=== PATIENT | female | born 1985 | race African-American/Black ===

== ENCOUNTER 2024-11-17 19:52 | Inpatient (IN) | payer OTHER, SELFPAY ==
[2024-11-17 20:01] VITALS: BP 133/81; BP 148/88; PULSE 104; PULSE 97; RESP 20; TEMP 37.3; O2SAT 97; BMI 28.2
[2024-11-17 20:26] LABS: Hematocrit 39.5 % (37.0-47.0); Hemoglobin 13.9 g/dl (12.0-16.0); Mean Corpuscular HGB Conc 35.2 g/dl (31.0-35.0); Mean Corpuscular Hemoglobin 34.1 pg (27.0-33.0); Mean Corpuscular Volume 96.8 fL (80.0-98.0); Mean Platelet Volume 9.9 fL (9.4-12.3); Platelet Count 234 X10*3/uL (160-400); Red Blood Count 4.08 X10*6/uL (4.20-5.50); Red Cell Distribution Width 13.2 % (11.0-16.0); White Blood Count 3.9 X10*3/uL (4.8-10.8)
[2024-11-17 20:40] LABS: Alanine Aminotransferase 10 U/L (0-31); Albumin Level 4.1 g/dL (3.5-5.0); Alkaline Phosphatase 64 U/L (39-117); Anion Gap 15 (12-20); Aspartate Amino Transferase 23 U/L (5-31); Bilirubin Total 0.4 mg/dL (0.0-1.0); Blood Urea Nitrogen 6 mg/dL (9-16); Calcium 9.4 mg/dL (8.4-10.2); Carbon Dioxide 23 mmol/L (22-29); Chloride 106 mmol/L (96-108); Creatinine Clr Calc Pharmacy 104.2; Estimated Glomerular Filt Rate > 60; Ethanol 99 mg/dL; Glucose Random 86 mg/dL (60-115); Potassium 3.5 mmol/L (3.3-5.1); Sodium 140 mmol/L (135-145); Total Protein 7.6 g/dL (6.5-8.0)
[2024-11-17 20:55] LABS: Amphetamine Screen Urine Not Detected (Not Detect); Barbiturates, Urine Not Detected (Not Detect); Benzodiazepines Screen Urine Not Detected (Not Detect); Buprenorphine Scr Not Detected (Not Detect); Cannabinoid Screen Urine POSITIVE (Not Detect); Cocaine Screen Urine Not Detected (Not Detect); Fentanyl, urine Not Detected (Not Detect); Methadone Screen, Urine Not Detected (Not Detect); Opiate Screen Urine Not Detected (Not Detect); Oxycodone Screen Urine Not Detected (Not Detect); Phencyclidine Screen Urine Not Detected (Not Detect)
--- NOTE | 2024-11-17 21:12 | PC.NURSE ---
Patient became verbally aggressive threatening staff and yelling at security and calling the nurse a bitch. Pt was able to verbalize frustration. Spoke with care to to assess patient. Care team in speaking with patient at this time.
--- NOTE | 2024-11-17 22:27 | ED.PSYCH ---
HPI - Psych General Chief Complaint: Psychiatric Symptoms Stated Complaint: SI Time Seen by Provider: 11/17/24 21:44 Source: patient and EMS Mode of arrival: EMS Limitations: no limitations History of Present Illness ED Provider: Dr. Ivelisse Collado HPI Narrative: Patient comes to the emergency room complaining of having racing thoughts, initially when EMS picked up the patient, she mentioned that she had some suicidal ideation thoughts. According to the patient, patient states that she feels extremely overwhelmed because she does not have much to the. Patient states that she has used to have many activities going on at the same time, then, for unclear reason she is no longer as active as she used to in her mind keeps racing, but not accomplishing anything. Patient states that she recently had an argument with her daughter, seems that the patient was making SI statements, patient was brought to the emergency room via ambulance. Patient states that she does not have a plan. Patient just feels extremely overwhelmed Related Data Allergies Allergy/AdvReac Type Severity Reaction Status Date / Time latex Allergy Unknown Verified 11/17/24 20:04 Review of Systems Review of Systems: Constitutional : No Weight loss, No Fever, No Chills, No Night Sweats, No Fatigue, No Malaise ENT/Mouth : No Hearing loss, No Ear Pain, No Nasal Congestion, No Sinus Pain, No Hoarseness, No sore throat, No Rhinorrhea, No Swallowing Difficulty Eyes: No Eye Pain, No Swelling, No Redness, No Foreign Body, No Discharge, No Vision Changes Cardiovascular : No Chest Pain, No SOB, No Dyspnea on Exertion, No Orthopnea, No Edema, No Palpitations Respiratory : No Cough, No Sputum, No Wheezing, No Smoke Exposure, No Dyspnea Gastrointestinal : No Nausea, No Vomiting, No Diarrhea, No Constipation, No abdominal Pain, No Hematochezia, No Melena Genitourinary : no irregular bleeding, No Dysuria, No Urinary Frequency, No Hematuria, No Urinary Incontinence, No Urgency, No Flank Pain, No Urinary Flow Changes, No Hesitancy Musculoskeletal : No joint pain, No Myalgias, No Joint Swelling Skin : No Skin Lesions, No rash Neuro : No Weakness, No Numbness, No Paresthesias, No Loss of Consciousness, No Dizziness, No Headache Psych : Complaining of anxiety, no depression, no SI or HI, complaining of racing thoughts Heme/Lymph: No Bruising, No Bleeding,No Lymphadenopathy Endocrine : No Polyuria, No Polydipsia, No Temperature Intolerance [facility] Social History Social History Advance Directives: No Advance Directives Information Provided: No Do you have a plan to hurt others: No Plan Physical Exam Vital Signs: Vital Signs: Last Vital Signs Temp 99.2 F 11/17/24 20:01 Pulse 97 11/17/24 20:01 Resp 20 11/17/24 20:01 BP 133/81 11/17/24 20:01 Pulse Ox 97 11/17/24 20:01 O2 Del Method Room Air 11/17/24 20:01 BMI result Body Mass Index 28.2 Const: Other: Appearance: Alert. Oriented X3. No acute distress. Eyes: Pupils equal, round and reactive to light. ENT: Pharynx normal. Neck: Normal inspection. Neck supple. No lymph nodes noted. No crepitus CVS: Normal heart rate and rhythm. Pulses normal. Normal S1 and S2 Respiratory: No respiratory distress. Breath sounds normal. No Wheezing. No rales Abdomen: Soft and nontender. No rigidity. No distention. Skin: Skin warm and dry. Normal skin color. Normal skin turgor. Extremities: No lower extremity edema. No Lacerations. No Rash Neuro: Oriented X 3. No motor deficit. No sensory deficit. Moving all extremities. No slurred speech. CN 2 through 12 grossly intact Psych: calm, cooperative, a bit anxious, seems overwhelmed Medical Decision Making Medical Decision Making MDM Narrative: Interpretation of labs: Patient's hematology and chemistry unremarkable, toxicology positive for THC, alcohol level 99. At this time, patient denies being SI or HI. Care team consult pending Physician observation started at 22:32 Differential Diagnosis Differential Diagnoses: The differential diagnosis associated with the presentation includes (Anxiety, depression) Lab Data 11/17/24 20:18 11/17/24 20:18 Labs: Lab Results 11/17/24 11/17/24 Range/Units 20:18 20:40 WBC 3.9 L (4.8-10.8) X10*3/uL RBC 4.08 L (4.20-5.50) X10*6/uL Hgb 13.9 (12.0-16.0) g/dl Hct 39.5 (37.0-47.0) % MCV 96.8 (80.0-98.0) fL MCH 34.1 H (27.0-33.0) pg MCHC 35.2 H (31.0-35.0) g/dl RDW 13.2 (11.0-16.0) % Plt Count 234 (160-400) X10*3/uL MPV 9.9 (9.4-12.3) fL Absolute Nucleated RBC 0.000 (0.0-0.012) X10*3/uL Nucleated RBC % (auto) 0.0 (0.0-0.2) /100WBC Sodium 140 (135-145) mmol/L Potassium 3.5 (3.3-5.1) mmol/L Chloride 106 (96-108) mmol/L Carbon Dioxide 23 (22-29) mmol/L Anion Gap 15 (12-20) BUN 6 L (9-16) mg/dL Creatinine 0.77 (0.5-1.4) mg/dL Estim Creat Clear Calc 104.2 Estimated GFR > 60 Random Glucose 86 (60-115) mg/dL Calcium 9.4 (8.4-10.2) mg/dL Total Bilirubin 0.4 (0.0-1.0) mg/dL AST 23 (5-31) U/L ALT 10 (0-31) U/L Alkaline Phosphatase 64 (39-117) U/L Total Protein 7.6 (6.5-8.0) g/dL Albumin 4.1 (3.5-5.0) g/dL Urine Opiates Screen Not Detected (Not Detect) Ur Buprenorphine Scrn Not Detected (Not Detect) ng/mL Ur Oxycodone Screen Not Detected (Not Detect) ng/mL Urine Methadone Screen Not Detected (Not Detect) ng/mL Urine Fentanyl Screen Not Detected (Not Detect) Ur Barbiturates Screen Not Detected (Not Detect) Ur Phencyclidine Scrn Not Detected (Not Detect) Ur Amphetamines Screen Not Detected (Not Detect) U Benzodiazepines Scrn Not Detected (Not Detect) Urine Cocaine Screen Not Detected (Not Detect) U Marijuana (THC) Screen POSITIVE H (Not Detect) Ethyl Alcohol 99 mg/dL Discharge Plan Discharge Clinical Impression: Acute anxiety, Depression Patient Disposition: Still a Patient Interventions: [place]-Suicide Risk Severity Scale Last Done: 11/17/24 20:05 Print Language: [place]
[2024-11-17 22:55] LABS: HCG Quantitative < 2 mIU/mL
--- NOTE | 2024-11-18 06:06 | PC.NURSE ---
Assumed care of pt at 2300. Patient has been sleeping since assuming care and is still sleeping at the time of this note. Respirations have remained even and unlabored throughout the night. No signs of distress or discomfort noted. 15 minute checks performed as per protocol and remain in place. Disposition remains unknown at this time, awaiting care team follow up.
[2024-11-18 06:15] VITALS: BP 110/54; PULSE 64; RESP 16; O2SAT 97
--- NOTE | 2024-11-18 07:15 | PC.NURSE ---
Assumed care of patient at 0700. Patient currently resting. Continue with plan of care for reevaluation by care team today.
[2024-11-18 09:19] VITALS: BP 133/82; PULSE 72; RESP 16; TEMP 36.9; O2SAT 98
--- NOTE | 2024-11-18 11:43 | MHC.CARE ---
Pt meets [facility] and is on a Section 12a as an inpatient psychiatric bed search. Provider in agreement.
--- NOTE | 2024-11-18 14:11 | PC.NURSE ---
Patient became agitated after speaking with daughter on phone, able to verbally deescalate. Patient verbalizing frustration with being here, feelings validated. Patient currently calm sitting in room listening to music.
--- NOTE | 2024-11-18 14:26 | MHC.CARE ---
Initial Boarding Form Your submission was successful! ?Your Confirmation Submission ID is: [id number]
[2024-11-18 15:01] LABS: Appearance Urine Cloudy; Color Urine Dark Yellow; Glucose Urine UA Negative (Negative); Leukocyte Esterase Urine Negative (Negative); Nitrite Urine Negative (Negative); PH 5.5 (5.0-9.0); Specific Gravity - Urine 1.025 (1.005-1.025); Urine Blood Negative (Negative); Urine Ketones Trace mg/dL (Negative); Urine Protein Trace mg/dL (Neg-Trace)
[2024-11-18 16:40] VITALS: BP 136/93; PULSE 87; TEMP 36.8; O2SAT 99
[2024-11-18 16:51] VITALS: BMI 23.8
--- NOTE | 2024-11-18 18:14 | PC.ADMIT ---
Addendum entered by Jaclyn Munoz RN 11/18/24 18:58: Admitting diagnoses include SI, depression, alcohol use disorder. Addendum entered by Jaclyn Munoz RN 11/18/24 18:51: Ms. Ahuja is on no scheduled meds. CIWA at 16:40 was 1. No meds administered at that time. Original Note: Ms. Celina Ahuja is a 39 year old single Black female who was admitted from the pod to room [facility]- at 4:30pm for suicidal ideation. She arrived on a 12B and did sign a Conditional Voluntary. Skin/ safety check completed and was unremarkable except for what appears to be a plantars wart on the bottom of her right foot. The patient arrived at the ED after expressing suicidal ideation to her eldest daughter. Precipitants include but are not limited to the of her mother in January 2024 from complications of diabetes while living with and taking care of Celina's younger alcoholic sister and her sister's 7 children, the loss of housing in January 2024 for unrelated reasons, and the loss of employment. She reports smoking marijuana daily and drinking approximately a pint of hard liquor 2-4 times per month. Last drink and cannabis use was within days of this admission. Ms. Ahuja denied suicidality after arriving at the pod. Placed on CIWA q 4 hours. Admitting vitals were: 136/93- P87- T98.2- SP02 99%. Allergic to latex. Medically, she reports that she has asthma which is managed witha rescue inhaler (albuteral). Ms. Ahuja reports that she has lost up to 80lbs since her mother's (due to lack of appetite). She endorses hopelessness but is currently denying SI/ HI/ auditory or visual hallucinations. She has never been a smoker and is declining the flu vaccine, for now.
[2024-11-18 19:54] VITALS: BP 145/85; PULSE 85; TEMP 36.8; O2SAT 99
[2024-11-19 08:00] VITALS: BP 122/78; PULSE 92; TEMP 36.4; O2SAT 98
--- NOTE | 2024-11-19 08:21 | PHA.MEDREC ---
Addendum entered by Kostas Matos 11/19/24 08:59: reviewed Original Note: Pharmacy Consult ? Medication Reconciliation Pharmacy reviewed med rec done by nursing. No Known Home Meds was confirmed for med rec and looking into claims the patient has not filled any medications since February of this year and looking through notes, a nurse confirmed with the patient that Ms. Ahuja is on no scheduled meds.
[2024-11-19] MEDS: Thiamine HCL 100 MG TABLET PO (09:14)
[2024-11-19] MEDS: Folic Acid 1 MG TABLET PO (09:14)
[2024-11-19] MEDS: Multivitamin TABLET 1 TAB PO (09:14)
[2024-11-19 10:34] LABS: Estimated Average Glucose 100 mg/dL; Hemoglobin A1C 126.2265 umol/L; Hemoglobin A1c % 5.1 % (<6.0); Total Hemoglobin (HGBA1C) 3939.4983 umol/L
[2024-11-19 10:36] LABS: Cholesterol 263 mg/dL (<200); HDL Cholesterol 51 mg/dL (>40); LDL Cholesterol Calculated 183 mg/dL (<100); Magnesium 1.8 mg/dL (1.6-2.6); Triglycerides 149 mg/dL (<150)
[2024-11-19 10:51] LABS: Free T4 (Free Thyroxine) 1.11 ng/dL (0.71-1.85); Thyroid Stimulating Hormone 0.85 uIU/mL (0.32-4.0)
[2024-11-19 11:05] LABS: Folate 14.4 ng/mL (> or = 4.0); Vitamin B12 439 pg/mL (200-900)
--- NOTE | 2024-11-19 11:14 | HO.PSYADMNOT ---
HPI Date of Service: 11/19/24 Chief Complaint: SI, alcohol use disorder, depression Sources of Information: patient interviewed, chart reviewed and crisis/core team assessment reviewed HPI Subjective Notes: [place]ega Warning and Conditional Voluntary Narrative: Ms. Ahuja is a 39 year-old woman who was brought via EMS after daughter called 911 reporting pt reported SI with plan to jump off a bridge. Pt has multiple stressors including the fact that her mother in 01/2024, has been using alcohol daily since last 09/2023, and recently lost housing and her job. BAL 99. Utox positive for cannabis. On the unit, pt reports she feels unsupported by most of her family members who in the past she was helping. She reports first she lost her mother back in January of this year and prior to that last September in 2022 she started using alcohol almost daily about 1-2 pints. She reports she also lost housing in January of 2024 due to lack of payment. She reports most recently she was staying at her daughter's house and they had an argument about something she cooked for her and her as gesture of appreciation for letting her stay with them. She reports she became very upset and did at the moment make statements about wanting to be and having a plan to jump off the bridge. She now reports she did not have intention to end her life. She reports her sleep is poor, especially if she does not use cannabis which she reports using daily. She reports many misfortunes in her life are product of other people's wrongdoings to her. She endorses feeling lonely, overwhelmed at prospect of not having housing and recently (2 weeks ago) losing her job. She denies hx of VH/AH. No delusions. No prior psychiatric tx inpt or outpatient. She reports she used to have more energy but now feels defeated and trapped. Past Psychiatric History: Inpatient: none prior OP: none Past medication trials: none Hx of suicide attempts: none Medical Evaluation Reviewed: Yes cbc with leukopenia. CMP with no electrolyte abnormalities; BUN 6, Cr 0.77, Creatinine Clearance 104.2. A1c 5.1 TSH wnl. Lipid panel- cholesterol 263, LDL 183, HDL 51 [facility] Family History: mother- depression Social History: Pt born in [place]. She has 4 siblings. Completed GED. She has 3 children. Not . Substance History: Pt reports she started using alcohol heavily since Sep. She reports using 2 pints a day. Cannabis: everyday, multiple times a day Opioids: Cocaine: Trauma History: emotional as child Diagnostics Vital Signs (24Hr): Vital Signs - 24 hr 11/18/24 16:40 11/18/24 19:54 Temperature 98.2 F 98.2 F Pulse Rate 87 85 Blood Pressure 136/93 H 145/85 H Pulse Oximetry 99 99 Oxygen Delivery Method Room Air Room Air BMI result Body Mass Index 23.8 Labs 11/17/24 20:18 11/17/24 20:18 Labs: Laboratory Results - last 48 hr 11/17/24 11/17/24 11/18/24 20:18 20:40 20:40 WBC 3.9 L RBC 4.08 L Hgb 13.9 Hct 39.5 MCV 96.8 MCH 34.1 H MCHC 35.2 H RDW 13.2 Plt Count 234 MPV 9.9 Absolute Nucleated RBC 0.000 Nucleated RBC % (auto) 0.0 Sodium 140 Potassium 3.5 Chloride 106 Carbon Dioxide 23 Anion Gap 15 BUN 6 L Creatinine 0.77 Estim Creat Clear Calc 104.2 Estimated GFR > 60 Random Glucose 86 Estimat Average Glucose Hemoglobin A1c % Calcium 9.4 Magnesium Total Bilirubin 0.4 AST 23 ALT 10 Alkaline Phosphatase 64 Total Protein 7.6 Albumin 4.1 Triglycerides Cholesterol LDL Cholesterol, Calc HDL Cholesterol Vitamin B12 Folate TSH Free T4 Beta HCG, Quant < 2 Urine Color Dark Yellow Urine Appearance Cloudy Urine pH 5.5 Ur Specific [place] 1.025 Urine Protein Trace Urine Glucose (UA) Negative Urine Ketones Trace Urine Blood Negative Urine Nitrite Negative Ur Leukocyte Esterase Negative Urine Opiates Screen Not Detected Ur Buprenorphine Scrn Not Detected Ur Oxycodone Screen Not Detected Urine Methadone Screen Not Detected Urine Fentanyl Screen Not Detected Ur Barbiturates Screen Not Detected Ur Phencyclidine Scrn Not Detected Ur Amphetamines Screen Not Detected U Benzodiazepines Scrn Not Detected Urine Cocaine Screen Not Detected U Marijuana (THC) Screen POSITIVE H Ethyl Alcohol 99 11/19/24 11/19/24 09:57 09:58 WBC RBC Hgb Hct MCV MCH MCHC RDW Plt Count MPV Absolute Nucleated RBC Nucleated RBC % (auto) Sodium Potassium Chloride Carbon Dioxide Anion Gap BUN Creatinine Estim Creat Clear Calc Estimated GFR Random Glucose Estimat Average Glucose 100 Hemoglobin A1c % 5.1 Calcium Magnesium 1.8 Total Bilirubin AST ALT Alkaline Phosphatase Total Protein Albumin Triglycerides 149 Cholesterol 263 H LDL Cholesterol, Calc 183 H HDL Cholesterol 51 Vitamin B12 439 Folate 14.4 TSH 0.85 Free T4 1.11 Beta HCG, Quant Urine Color Urine Appearance Urine pH Ur Specific [place] Urine Protein Urine Glucose (UA) Urine Ketones Urine Blood Urine Nitrite Ur Leukocyte Esterase Urine Opiates Screen Ur Buprenorphine Scrn Ur Oxycodone Screen Urine Methadone Screen Urine Fentanyl Screen Ur Barbiturates Screen Ur Phencyclidine Scrn Ur Amphetamines Screen U Benzodiazepines Scrn Urine Cocaine Screen U Marijuana (THC) Screen Ethyl Alcohol Meds/Allergies Meds Home Medications ?Medication ?Instructions ?Recorded ?Confirmed ?Type No Known Home Meds 11/18/24 11/18/24 History Allergies Allergies Allergy/AdvReac Type Severity Reaction Status Date / Time latex Allergy Unknown Verified 11/17/24 20:04 Mental Status Exam Mental Status Exam Narrative: Appearance:wearing hospital gown, fair hygiene, in NAD Behavior:cooperative Psychomotor: no tremors, no agitation or retardation noted Speech:clear, normal rate/rhythm/volume, spontaneous TP:linear TC:worried about housing Mood: depressed Affect:congruent, tearful SI:denies HI: denies VH/AH:none Delusions:none Insight/judgment:poor x 2. Memory/cog: alert, oriented x 3. grossly intact to conversational testing. Assessment & Plan Assessment & Plan (1) MDD (major depressive disorder), recurrent episode, moderate: Status: Acute Code(s): F33.1 - Major depressive disorder, recurrent, moderate (2) Alcohol use disorder, moderate, dependence: Status: Acute Code(s): F10.20 - Alcohol dependence, uncomplicated Plan Ms. Ahuja is a 39 year-old woman who was brought via EMS after daughter call 911 due to pt reporting SI with plan to jump off the bridge. In the ED, she denied SI, but reported feeling overwhelmed, depressed and using alcohol almost daily for over a year in context of of her mother back in 01/2024, losing housing for first time in her life back in 01/2024, and recently losing her job. BAL was 99. She has not scored on CIWA but will continue for now given amount of alcohol use for such prolonged time. We discussed risks, benefits and alternative treatment options. She does appear to have low frustration tolerance and easily becomes irritable and explosive, which has been witnessed here in the hospital and she also reports this happens frequently. No clear s/s of hypomania or all at this point. I will treat as unipolar depression but could have bipolar disorder. Will start remeron 15mg po qhs for depression and sleep. clonidine 0.1mg po daily for low frustration tolerance. She also agreed to start naltrexon for alcohol cravings. She also agreed to referral to addiction medicine. PLAN 1. admit to M5, CV, 15 minutes checks for safety 2. will continue ciwa for now, although she has not scored, is less than 48hrs since last drink and seems to have been using large amounts of it for over a year. 3. remeron 15mg po qhs for depression, plan to increase to 30mg po qhs. clonidine 0.1mg po daily- monitor BP. Naltrexon for alcohol cravings 50mg po daily starting tomorrow. 4. addiction consult 5. Lipid panel with elevated LDL, Total Cholesteril- advised to follow up with PCP. 6. aftercare planning. Patient educated on: diagnosis, medication risk/benefits and substance abuse Reason for continued inpatient stay Substantial Risk for: harm to self and inability to function Statement Statement: I have reviewed the history and physical and performed a pertinent examination on my patient. No changes have occurred unless specified. If the History and Physical was not performed prior to admission, the Hospitalist's service will be consulted for completing the admission physical. Time Spent With Patient Time: Total time managing care of this patient today ____ minutes.
[2024-11-19 12:00] VITALS: BP 120/80; PULSE 88
[2024-11-19 15:09] VITALS: BP 127/78
[2024-11-19] MEDS: cloNIDine HCL 0.1 MG TABLET PO (15:09)
[2024-11-19 20:00] VITALS: BP 123/70; PULSE 105; RESP 18; TEMP 36.4; O2SAT 97
[2024-11-19] MEDS: Mirtazapine 15 MG TABLET PO (22:29)
[2024-11-20] MEDS: Naltrexone HCl 50 MG TABLET PO (08:46)
[2024-11-20] MEDS: Thiamine HCL 100 MG TABLET PO (08:46)
[2024-11-20] MEDS: Folic Acid 1 MG TABLET PO (08:46)
[2024-11-20] MEDS: Multivitamin TABLET 1 TAB PO (08:46)
[2024-11-20 09:04] VITALS: BP 116/78; PULSE 67; RESP 20; TEMP 36.4; O2SAT 98
[2024-11-20] MEDS: cloNIDine HCL 0.1 MG TABLET PO (09:10)
--- NOTE | 2024-11-20 09:50 | P.PNPSI_ITS ---
Subjective Subjective Date of Service: 11/20/24 Reason For Visit: SI, alcohol use disorder, depression Subjective Notes: 3 Day Healthcare Proxy: No Guardianship: No Medical Problems Affecting Mental Status: No Interim History: 39 yo irritable and annoyed with how people/staff are interacting with her - finds checks rude and disruptive to her sleep -=but also how people/staff address her and other escalated patient not being calmed down in some way she expects- to have less intrussion on her and her finding herself triggered- has prn clonidine for low frustration tolerance and has already been started on naltrexone which apparently patient didn't remember as I also discussed it with patient and she is interested in - Medication Compliance: Yes Side effects from medications: No Attending Groups: Intermittent Review of Systems Acute medical concerns: No Medical Review of Systems: unchanged Mental Status Exam Mental Status Exam Narrative: irritable appropriately dressed- anger at provider and then angry at next provider that came in to wake up patient in next bed- feeling guarded and annoyed- Patient Appearance: Appropriate Patient Orientation: Person, Place, Time and Situation Level of Consciousness: Awake Patient Behavior: Avoidant Behavior Comments: annoyed/angry re unit and care- Mood Description: Angry Affect Description: Labile (irritable ) Patient Cognition Impaired: No Ability to Follow Directions: Fair Speech Pattern: Clear Hallucinations: None Delusions: Not Present Thought Process: Intact and Goal Oriented Depressive Symptoms: Muscle Tension, Increased Irritability and Unhappiness Judgement: Fair Diagnostics Vital Signs (24Hr): Vital Signs - 24 hr 11/19/24 12:00 11/19/24 15:09 11/19/24 20:00 Temperature 97.6 F Pulse Rate 88 105 H Respiratory Rate 18 Blood Pressure 120/80 127/78 123/70 Pulse Oximetry 97 Oxygen Delivery Method Room Air 11/20/24 09:04 Temperature 97.5 F Pulse Rate 67 Respiratory Rate 20 Blood Pressure 116/78 Pulse Oximetry 98 Oxygen Delivery Method Room Air BMI result Body Mass Index 23.8 Labs 11/17/24 20:18 11/17/24 20:18 Labs: Laboratory Results - last 48 hr 11/18/24 11/19/24 11/19/24 20:40 09:57 09:58 Estimat Average Glucose 100 Hemoglobin A1c % 5.1 Magnesium 1.8 Triglycerides 149 Cholesterol 263 H LDL Cholesterol, Calc 183 H HDL Cholesterol 51 Vitamin B12 439 Folate 14.4 TSH 0.85 Free T4 1.11 Urine Color Dark Yellow Urine Appearance Cloudy Urine pH 5.5 Ur Specific [place] 1.025 Urine Protein Trace Urine Glucose (UA) Negative Urine Ketones Trace Urine Blood Negative Urine Nitrite Negative Ur Leukocyte Esterase Negative Medications Medications Current Medications Acetaminophen (Acetaminophen 325 Mg Tablet) 650 mg PO Q6H PRN PRN Reason: Headache/Pain Mild Scale (1-3) Al Hydroxide/Mg Hydroxide (Magnesium Hydrox/Alum Hydrox 30 Ml Oral.Susp) 30 ml PO Q6H PRN PRN Reason: Heartburn/Nausea Clonidine HCl (Clonidine Hcl 0.1 Mg Tablet) 0.1 mg PO DAILY [facility]; Protocol Last Admin: 11/20/24 09:10 Dose: 0.1 mg Famotidine (Famotidine 20 Mg Tablet) 20 mg PO DAILY PRN PRN Reason: dyspepsia Folic Acid (Folic Acid 1 Mg Tablet) 1 mg PO DAILY [facility] Last Admin: 11/20/24 08:46 Dose: 1 mg Hydroxyzine HCl (Hydroxyzine Hcl 25 Mg Tablet) 25 mg PO Q6H PRN PRN Reason: Anxiety Lorazepam (Lorazepam 1 Mg Tablet) 1 mg PO Q2H PRN PRN Reason: ciwa 6-10 Lorazepam (Lorazepam 1 Mg Tablet) 2 mg PO Q2H PRN PRN Reason: ciwa 11+ Magnesium Hydroxide (Milk Of Magnesia 30 Ml Oral.Susp) 30 ml PO DAILY PRN PRN Reason: Constipation Mirtazapine (Mirtazapine 15 Mg Tablet) 15 mg PO BEDTIME [facility] Last Admin: 11/19/24 22:29 Dose: 15 mg Multivitamins/Vitamin C (Multivitamin Tablet) 1 tab PO DAILY [facility] Last Admin: 11/20/24 08:46 Dose: 1 tab Naltrexone HCl (Naltrexone Hcl 50 Mg Tablet) 50 mg PO DAILY [facility] Last Admin: 11/20/24 08:46 Dose: 50 mg Nicotine (Nicotine 21 Mg Patch.Td24) 21 mg TRANSDERMA DAILY PRN PRN Reason: nicotine cravings Nicotine Polacrilex (Nicotine Polacrilex 2 Mg Gum) 4 mg BUCCAL Q2H PRN PRN Reason: Nicotine Cravings Olanzapine (Olanzapine 5 Mg Tablet) 5 mg PO Q4H PRN PRN Reason: agitation Thiamine HCl (Thiamine Hcl 100 Mg Tablet) 100 mg PO DAILY [facility] Last Admin: 11/20/24 08:46 Dose: 100 mg Trazodone HCl (Trazodone Hcl 50 Mg Tablet) 50 mg PO BEDTIME MRX1 PRN PRN Reason: Insomnia Allergies Allergies Allergy/AdvReac Type Severity Reaction Status Date / Time latex Allergy Unknown Verified 11/17/24 20:04 Assessment & Plan Assessment & Plan (1) MDD (major depressive disorder), recurrent episode, moderate: Status: Acute Code(s): F33.1 - Major depressive disorder, recurrent, moderate Assessment and Plan: some irritability and impulsive anger, in guarded/reactive state (2) Alcohol use disorder, moderate, dependence: Status: Acute Code(s): F10.20 - Alcohol dependence, uncomplicated Assessment and Plan: no ciwa sys but agreeing to trial of naltrexone Plan Ms. Ahuja is a 39 year-old woman who was brought via EMS after daughter call 911 due to pt reporting SI with plan to jump off the bridge. In the ED, she denied SI, but reported feeling overwhelmed, depressed and using alcohol almost daily for over a year in context of of her mother back in 01/2024, losing housing for first time in her life back in 01/2024, and recently losing her job. BAL was 99. She has not scored on CIWA but will continue for now given amount of alcohol use for such prolonged time. We discussed risks, benefits and alternative treatment options. She does appear to have low frustration tolerance and easily becomes irritable and explosive, which has been witnessed here in the hospital and she also reports this happens frequently. No clear s/s of hypomania or all at this point. I will treat as unipolar depression but could have bipolar disorder. Will start remeron 15mg po qhs for depression and sleep. clonidine 0.1mg po daily for low frustration tolerance. She also agreed to start naltrexon for alcohol cravings. She also agreed to referral to addiction medicine. PLAN 1. admit to [facility], CV, 15 minutes checks for safety 2. will continue ciwa for now, although she has not scored, is less than 48hrs since last drink and seems to have been using large amounts of it for over a year. 3. remeron 15mg po qhs for depression, plan to increase to 30mg po qhs. clonidine 0.1mg po daily- monitor BP. Naltrexon for alcohol cravings 50mg po daily starting tomorrow. 4. addiction consult 5. Lipid panel with elevated LDL, Total Cholesteril- advised to follow up with PCP. 6. aftercare planning. 11/20/24 - patient likely to request dc as on 3 day and not having positive experience- did agree to referrals and naltrexone trial- has started on mirtazapine for now- for dep/anxiety will need fu to this and addiction referrals- for support on cutting back etoh use Patient educated on: diagnosis, medication risk/benefits and substance abuse Informed Consent: understands Reason for continued inpatient stay Substantial Risk for: rapid decompensation Time Spent With Patient Time: Total time managing care of this patient today ____ minutes.
[2024-11-20] MEDS: OLANZapine 5 MG TABLET PO (11:28)
[2024-11-20] MEDS: hydrOXYzine HCL 25 MG TABLET PO (11:28)
[2024-11-20] MEDS: LORazepam 1 MG TABLET PO (11:33)
[2024-11-20 21:00] VITALS: BP 113/81; PULSE 109; RESP 16; TEMP 36.4; O2SAT 99
[2024-11-21] VITALS: BP 118/80; PULSE 86; RESP 18; O2SAT 98
--- NOTE | 2024-11-21 08:36 | P.DS_ITS ---
DS: Providers Provider Date of Service: 11/21/24 Date of admission: 11/18/24 15:41 Date of discharge: 11/21/24 Primary care physician: None Physician Admitting clinician: Marilin Landaverde Attending physician on discharge: Damian Horn DS: Diagnosis Discharge Diagnosis (1) MDD (major depressive disorder), recurrent episode, moderate: Status: Acute (2) Alcohol use disorder, moderate, dependence: Status: Acute DS: Medications Discharge Medications Home Medications: Home Medications ?Medication ?Instructions ?Recorded ?Confirmed No Known Home Meds 11/18/24 11/18/24 Previous Rx's ?Medication ?Instructions ?Recorded clonidine HCl 0.1 mg tablet 0.1 mg PO DAILY 30 days #30 tabs 11/21/24 hydroxyzine HCl 25 mg tablet 25 mg PO Q6H PRN Anxiety 30 days 11/21/24 #60 tabs mirtazapine 15 mg tablet 15 mg PO BEDTIME 30 days #30 tabs 11/21/24 naltrexone 50 mg tablet 50 mg PO DAILY 30 days #30 tabs 11/21/24 olanzapine 5 mg tablet 5 mg PO Q4H PRN agitation 30 days 11/21/24 #60 tabs Mental Status Exam Mental Status Exam Narrative: Pt is alert and oriented; behavior is irritable and demanding discharge but eventually patient calmed down; dressed in casual attire with adequate hygiene; mood is described intermittently irritable and affect congruent; eye contact appropriate; Speech was loud and verbose, but calmed down and normal volume, rate and prosody. Intermittent psychomotor agitation present when triggered; thought process is organized and goal directed; Thought content is on dealing with her issues, making her interview also on being disrespected, discharge; otherwise pertinent to relevant topics and without any delusional ideations; denies any SI/HI. No AVH Patients insight and judgment at baseline, fair and adequate Data Data Completed and Pending Completed studies during hospitalization [Text1]: 11/17/24 11/17/24 11/18/24 20:18 20:40 20:40 WBC 3.9 L RBC 4.08 L Hgb 13.9 Hct 39.5 MCV 96.8 MCH 34.1 H MCHC 35.2 H RDW 13.2 Plt Count 234 MPV 9.9 Absolute Nucleated RBC 0.000 Nucleated RBC % (auto) 0.0 Sodium 140 Potassium 3.5 Chloride 106 Carbon Dioxide 23 Anion Gap 15 BUN 6 L Creatinine 0.77 Estim Creat Clear Calc 104.2 Estimated GFR > 60 Random Glucose 86 Estimat Average Glucose Hemoglobin A1c % Calcium 9.4 Magnesium Total Bilirubin 0.4 AST 23 ALT 10 Alkaline Phosphatase 64 Total Protein 7.6 Albumin 4.1 Triglycerides Cholesterol LDL Cholesterol, Calc HDL Cholesterol Vitamin B12 Folate TSH Free T4 Beta HCG, Quant < 2 Urine Color Dark Yellow Urine Appearance Cloudy Urine pH 5.5 Ur Specific [place] 1.025 Urine Protein Trace Urine Glucose (UA) Negative Urine Ketones Trace Urine Blood Negative Urine Nitrite Negative Ur Leukocyte Esterase Negative Urine Opiates Screen Not Detected Ur Buprenorphine Scrn Not Detected Ur Oxycodone Screen Not Detected Urine Methadone Screen Not Detected Urine Fentanyl Screen Not Detected Ur Barbiturates Screen Not Detected Ur Phencyclidine Scrn Not Detected Ur Amphetamines Screen Not Detected U Benzodiazepines Scrn Not Detected Urine Cocaine Screen Not Detected U Marijuana (THC) Screen POSITIVE H Ethyl Alcohol 99 11/19/24 11/19/24 09:57 09:58 WBC RBC Hgb Hct MCV MCH MCHC RDW Plt Count MPV Absolute Nucleated RBC Nucleated RBC % (auto) Sodium Potassium Chloride Carbon Dioxide Anion Gap BUN Creatinine Estim Creat Clear Calc Estimated GFR Random Glucose Estimat Average Glucose 100 Hemoglobin A1c % 5.1 Calcium Magnesium 1.8 Total Bilirubin AST ALT Alkaline Phosphatase Total Protein Albumin Triglycerides 149 Cholesterol 263 H LDL Cholesterol, Calc 183 H HDL Cholesterol 51 Vitamin B12 439 Folate 14.4 TSH 0.85 Free T4 1.11 Beta HCG, Quant Urine Color Urine Appearance Urine pH Ur Specific [place] Urine Protein Urine Glucose (UA) Urine Ketones Urine Blood Urine Nitrite Ur Leukocyte Esterase Urine Opiates Screen Ur Buprenorphine Scrn Ur Oxycodone Screen Urine Methadone Screen Urine Fentanyl Screen Ur Barbiturates Screen Ur Phencyclidine Scrn Ur Amphetamines Screen U Benzodiazepines Scrn Urine Cocaine Screen U Marijuana (THC) Screen Ethyl Alcohol DS: Summary Hospital Course Hospital Course: HPI: Ms. Ahuja is a 39 year-old woman who was brought via EMS after daughter called 911 reporting pt reported SI with plan to jump off a bridge. Pt has multiple stressors including the fact that her mother in 01/2024, has been using alcohol daily since last 09/2023, and recently lost housing and her job. BAL 99. Utox positive for cannabis. On the unit, pt reports she feels unsupported by most of her family members who in the past she was helping. She reports first she lost her mother back in January of this year and prior to that last September in 2022 she started using alcohol almost daily about 1-2 pints. She reports she also lost housing in January of 2024 due to lack of payment. She reports most recently she was staying at her daughter's house and they had an argument about something she cooked for her and her as gesture of appreciation for letting her stay with them. She reports she became very upset and did at the moment make statements about wanting to be and having a plan to jump off the bridge. She now reports she did not have intention to end her life. She reports her sleep is poor, especially if she does not use cannabis which she reports using daily. She reports many misfortunes in her life are product of other people's wrongdoings to her. She endorses feeling lonely, overwhelmed at prospect of not having housing and recently (2 weeks ago) losing her job. She denies hx of VH/AH. No delusions. No prior psychiatric tx inpt or outpatient. She reports she used to have more energy but now feels defeated and trapped. Hospital course: Patient irritable on admission. She denied any SI saying that it had fully resolved and very much wanted to discharge as soon as possible because she had an interview on 11/21 at 10:00 that she did not want to miss. She agreed to start mirtazapine, clonidine as well as naltrexone for alcohol cravings. Patient i was intermittently irritable, easily frustrated or angered by seemingly innocuous staff interactions, feeling disrespected; she would intermittently rant about feeling disrespected; mostly she was able to calm herself down and be redirectable. Despite emotional reactivity, patient has no symptoms of all or psychosis. Patient continued to want discharge in time to make her interview on . Cleater spoke with patient on 11/20 who was polite and calm with check writer salesperson and asked for discharge the following day so that she could make her interview; later in the day she approached check writer salesperson and changed her mind saying that she would like to stay so that she could get appointment set up for her with outpatient providers prior to leaving and that she would just instead call the potential employer and try to reschedule the interview. The next morning however on 11/21, patient got very angry at a staff who woke her up in the morning to check vitals (standard procedure on the unit). Patient was irate, saying she felt disrespected by it and even threatened to strike the staff person. Patient wanted discharge, saying she changed her mind and wants to go to her interview. Cleater met with her and she had calmed down and was apologetic; she acknowledged that she has a longstanding struggle with controlling her anger and that she would like to work on this as an outpatient, agreeing that the inpatient milieu is too triggering for her. She said a lot of her reaction this morning was anxiety about missing the interview that she very much wants to go to. She expressed thanks for the help received. Patient is at baseline. Depression resolved and no SI at all throughout entire admission. She remained future oriented throughout this admission. She chronically struggles with being emotionally reactive however she is not ready to address this further at this time. She has however been willing to work on alcohol cravings and was started on naltrexone. Patient wants discharge. She is not tolerating the inpatient environment and as she is not in imminent risk for harm to self or others and does not rise to the level of involuntary commit ment, she does not require treatment on a locked unit; given her emotional reactivity, check writer salesperson agrees that she will likely do better seeking treatment as an outpatient and engaging in therapy if she is willing. Cleater discussed case with both admitting ROQUE Landaverde and Dr. Whitten who saw her yesterday, who both agree that she is appropriate for discharge and treatment in the community. She is not in imminent risk for harm to self or others and request for discharge honored. Status at Discharge Functional status at discharge: independent ambulation Overall status at discharge: patient is back to baseline Time Spent with Patient Time attestation: Total time managing care of this patient today 40____ minutes. Time spent: Greater than 30 minutes Specific discharge activities: Discussed with team; met with patient ; charting; prescriptions Discharge Plan Discharge Anticipated Discharge Date/Time: 11/21/24 08:34 Patient Disposition: Home, Self-Care Discharge Diagnosis: MDD, recurrent, moderate, in full remission Referrals: [facility] [Other] - 1 Week (information for walk-in [facility] to establish with psychiatric services Patient may self present Monday-Monday between 10 am- 12 pm to complete intake for therapy/psychiatry services ) [facility] [Other] - 1 Week (Walk in-information for [facility] Patient may self present to establish with therapy/psychiatry services Monday- Monday 8 am-8 pm. Monday 9 am-5 pm.) Physician,None [Primary Care Provider] - 1 Week Discharge Medications: New clonidine HCl 0.1 mg Tablet 0.1 mg PO DAILY 30 Days Qty: 30 0RF Protocol: Hold for SBP< HOLD for SBP < : 90 hydroxyzine HCl 25 mg Tablet 25 mg PO Q6H PRN (Reason: Anxiety) 30 Days Qty: 60 0RF mirtazapine 15 mg Tablet 15 mg PO BEDTIME 30 Days Qty: 30 0RF naltrexone 50 mg Tablet 50 mg PO DAILY 30 Days Qty: 30 0RF olanzapine 5 mg Tablet 5 mg PO Q4H PRN (Reason: agitation) 30 Days Qty: 60 0RF No Action No Known Home Meds Discharge Orders: Discharge Order (Routine); Ordered 11/21/24 Ordered By: Damian Horn Diet: Regular diet Activity on Discharge: As tolerated Stand Alone Forms: Patient Portal Discharge page, Community Support Print Language: Maldivian Care Plan Goals: Maintain mood and safe behaviors Take medications as prescribed Continue to pursue sobriety Practice coping skills Continue with outpatient providers and reach out to them as needed Health Concerns: Mood stability and behaviors Sobriety Plan of Treatment: Follow up with a PCP or psychiatric provider regarding above concerns Take medications as prescribed Assessment: Risk assessment at time of discharge:? Patient was interviewed prior to discharge and found to be fully oriented and without any SI or HI. Patient is not in imminent risk for harm to self or others; she has safety plan to return to the closest ER or call 911 if feeling unsafe.
== END 2024-11-21 09:54 | disposition home or self-care (01) | DRG 751 ==
LOC: HO.ED 23:02 → HO.PM5 11-18 15:42
PROVIDERS: Admitting Provider Clinical Nurse Specialist Psychiatric/Mental Health, Adult; Emergency Provider Emergency Medicine; Visit Provider Clinical Nurse Specialist Psychiatric/Mental Health, Adult
DX: F33.1 Major depressive disorder, recurrent, moderate (principal); R45.851 Suicidal ideations; Y90.4 Blood alcohol level of 80-99 mg/100 ml; F10.20 Alcohol dependence, uncomplicated; Z63.4 Disappearance and death of family member; Z56.0 Unemployment, unspecified; Z59.02 Unsheltered homelessness; Z79.899 Other long term (current) drug therapy
CPT/HCPCS: 36415; 80053; 80061; 80307; 81003; 82607; 82746; 83036; 83735; 84439; 84443; 84702; 85027; 99285; S9485

== ENCOUNTER → 2024-11-18 15:41 | Outpatient (BNV) | payer OTHER, SELFPAY | PROVIDERS: Admitting Provider Clinical Nurse Specialist Psychiatric/Mental Health, Adult; Emergency Provider Emergency Medicine; Visit Provider Psychiatry & Neurology Psychiatry | DX: F33.1 Major depressive disorder, recurrent, moderate (principal); F10.20 Alcohol dependence, uncomplicated | CPT/HCPCS: 90792; 99239 ==

== ENCOUNTER 2024-11-24 21:21 | Emergency (ER) | payer OTHER, SELFPAY ==
[2024-11-24 21:38] VITALS: BP 105/63; BP 116/66; PULSE 90; PULSE 98; RESP 17; TEMP 36.4; O2SAT 100; O2SAT 96; BMI 25.9
--- NOTE | 2024-11-24 22:17 | PC.NURSE ---
pt biba from home, a&ox4, respirations even and unlabored. pt reports she was at her friends house drinking a lot of alcohol, pt friends called ems for a check. pt ambulatory in ed with steady gait, reports etoh use and depression. pt is tearful. pt denies si/hi but reports she would like to speak to care team about depression. security at bedside, pt changed over, belongings placed into queta port 1. labs obtained.
[2024-11-24 22:19] LABS: MANUAL DIFF FLAG NO
[2024-11-24 22:24] LABS: Basophils Percent Auto 0.5 % (0-2); Eosinophils Absolute Auto 0.1 X10*3/uL (0.0-0.4); Eosinophils Percent Auto 1.3 % (0-4); Hematocrit 39.7 % (37.0-47.0); Hemoglobin 13.5 g/dl (12.0-16.0); Imm Gran Abs Auto 0.01 X10*3/uL (0.00-0.03); Imm Gran Pct Auto 0.2 % (0.0-0.4); Lymphocytes Absolute Auto 2.3 X10*3/uL (1.2-4.9); Lymphocytes Percent Auto 41.3 % (20-40); Mean Corpuscular Hemoglobin 33.8 pg (27.0-33.0); Mean Corpuscular Volume 99.5 fL (80.0-98.0); Mean Platelet Volume 10.2 fL (9.4-12.3); Monocytes Absolute Auto 0.4 X10*3/uL (0.1-1.2); Neutrophils Absolute Auto 2.7 x10*3/uL (2.0-8.3); Neutrophils Percent Auto 48.7 % (45-73); Platelet Count 199 X10*3/uL (160-400); Red Blood Count 3.99 X10*6/uL (4.20-5.50); Red Cell Distribution Width 12.7 % (11.0-16.0); White Blood Count 5.5 X10*3/uL (4.8-10.8)
[2024-11-24 22:37] LABS: Alanine Aminotransferase 12 U/L (0-31); Albumin Level 4.1 g/dL (3.5-5.0); Alkaline Phosphatase 66 U/L (39-117); Anion Gap 14 (12-20); Aspartate Amino Transferase 24 U/L (5-31); Bilirubin Total 0.2 mg/dL (0.0-1.0); Blood Urea Nitrogen 11 mg/dL (9-16); Calcium 9.2 mg/dL (8.4-10.2); Carbon Dioxide 23 mmol/L (22-29); Chloride 109 mmol/L (96-108); Creatinine Clr Calc Pharmacy 116.4; Estimated Glomerular Filt Rate > 60; Ethanol 296 mg/dL; Glucose Random 90 mg/dL (60-115); Potassium 3.6 mmol/L (3.3-5.1); Sodium 142 mmol/L (135-145); Total Protein 7.4 g/dL (6.5-8.0)
--- NOTE | 2024-11-24 22:54 | ED.ALCOHOL ---
HPI - Alcohol General Chief Complaint: ETOH/Substance Use Stated Complaint: etoh/drug use Time Seen by Provider: 11/24/24 22:11 History of Present Illness HPI narrative: Patient is a 39-year-old female was drinking at a friend's house. Patient has felt depressed. Got sent to the ED. she wants to talk to the care team. She denies any suicidal homicidal ideation Related Data Home Medications ?Medication ?Instructions ?Recorded ?Confirmed No Known Home Meds 11/18/24 11/18/24 Previous Rx's ?Medication ?Instructions ?Recorded clonidine HCl 0.1 mg tablet 0.1 mg PO DAILY 30 days #30 tabs 11/21/24 hydroxyzine HCl 25 mg tablet 25 mg PO Q6H PRN Anxiety 30 days 11/21/24 #60 tabs mirtazapine 15 mg tablet 15 mg PO BEDTIME 30 days #30 tabs 11/21/24 naltrexone 50 mg tablet 50 mg PO DAILY 30 days #30 tabs 11/21/24 olanzapine 5 mg tablet 5 mg PO Q4H PRN agitation 30 days 11/21/24 #60 tabs Allergies Allergy/AdvReac Type Severity Reaction Status Date / Time latex Allergy Unknown Verified 11/24/24 21:48 Review of Systems Review of Systems: Unable to obtain review of systems secondary to patient's condition [facility] Past Medical History Attestation statement: The following information was validated with the patient. Social History Social History Household Members: Other Housing: Homeless Do you presently have visiting nurse or other home services: No Patient Tobacco Use Status: Never used Tobacco Substance Use Type: Marijuana Advance Directives: No Advance Directives Information Provided: No Do you have a plan to hurt others: No Plan service: No Sexual orientation: Straight/Heterosexual Physical Exam ED Vital Signs: Vital Signs - 24 hr 11/24/24 21:38 Temperature 97.6 F Pulse Rate 98 Respiratory Rate 17 Blood Pressure 105/63 Pulse Oximetry 100 Oxygen Delivery Method Room Air BMI result Body Mass Index 25.9 Appearance: Grossly intoxicated Eyes: Pupils equal, round and reactive to light. ENT: Pharynx normal. Neck: Normal inspection. Neck supple. No lymph nodes noted. No crepitus CVS: Normal heart rate and rhythm. Pulses normal. Normal S1 and S2 Respiratory: No respiratory distress. Breath sounds normal. No Wheezing. No rales Abdomen: Soft and nontender. No rigidity. No distention. good BS x4 Skin: Skin warm and dry. Normal skin color. Normal skin turgor. Extremities: No lower extremity edema. Neurovascular intact to all extremities. No Lacerations. No Rash Neuro: Intoxicated moving all extremities Medical Decision Making Medical Decision Making [facility] Narrative: Patient grossly intoxicated. Labs showed an alcohol about 300. Not suicidal not homicidal. Awaiting clinical sobriety will refer patient to care team. Differential Diagnosis Differential Diagnoses: The differential diagnosis associated with the presentation includes Alcohol intoxication, depression Admission/Observation Consideration of admission/observation: Escalation of care including admission/observation considered Consult Healthcare Provider Management of the patient was discussed with: Candle Making Supervisor (Care team) Lab Data [facility] Lab Attestation statement: I reviewed the patient's lab results. 11/24/24 22:15 11/24/24 22:15 Labs: Lab Results 11/24/24 Range/Units 22:15 WBC 5.5 (4.8-10.8) X10*3/uL RBC 3.99 L (4.20-5.50) X10*6/uL Hgb 13.5 (12.0-16.0) g/dl Hct 39.7 (37.0-47.0) % MCV 99.5 H (80.0-98.0) fL MCH 33.8 H (27.0-33.0) pg MCHC 34.0 (31.0-35.0) g/dl RDW 12.7 (11.0-16.0) % Plt Count 199 (160-400) X10*3/uL MPV 10.2 (9.4-12.3) fL Immature Gran % (Auto) 0.2 (0.0-0.4) % Neut % (Auto) 48.7 (45-73) % Lymph % (Auto) 41.3 H (20-40) % [place] % (Auto) 8.0 (2-11) % Eos % (Auto) 1.3 (0-4) % Baso % (Auto) 0.5 (0-2) % Lymph # (Auto) 2.3 (1.2-4.9) X10*3/uL [place] # (Auto) 0.4 (0.1-1.2) X10*3/uL Eos # (Auto) 0.1 (0.0-0.4) X10*3/uL Baso # (Auto) 0.0 (0.0-0.2) X10*3/uL Abs Immat Gran (auto) 0.01 (0.00-0.03) X10*3/uL Absolute Neuts (auto) 2.7 (2.0-8.3) x10*3/uL Absolute Nucleated RBC 0.000 (0.0-0.012) X10*3/uL Nucleated RBC % (auto) 0.0 (0.0-0.2) /100WBC Sodium 142 (135-145) mmol/L Potassium 3.6 (3.3-5.1) mmol/L Chloride 109 H (96-108) mmol/L Carbon Dioxide 23 (22-29) mmol/L Anion Gap 14 (12-20) BUN 11 (9-16) mg/dL Creatinine 0.64 (0.5-1.4) mg/dL Estim Creat Clear Calc 116.4 Estimated GFR > 60 Random Glucose 90 (60-115) mg/dL Calcium 9.2 (8.4-10.2) mg/dL Total Bilirubin 0.2 (0.0-1.0) mg/dL AST 24 (5-31) U/L ALT 12 (0-31) U/L Alkaline Phosphatase 66 (39-117) U/L Total Protein 7.4 (6.5-8.0) g/dL Albumin 4.1 (3.5-5.0) g/dL Ethyl Alcohol 296 mg/dL Social Determinants Patient?s care significantly limited by Social Determinants of Health including: Alcoholism and drug addiction in family and Problems related to primary support group Discharge Plan Discharge Clinical Impression: Alcoholic intoxication Patient Disposition: Still a Patient Prescriptions: No Action No Known Home Meds clonidine HCl 0.1 mg Tablet 0.1 mg PO DAILY 30 Days Qty: 30 0RF Protocol: Hold for SBP< HOLD for SBP < : 90 hydroxyzine HCl 25 mg Tablet 25 mg PO Q6H PRN (Reason: Anxiety) 30 Days Qty: 60 0RF mirtazapine 15 mg Tablet 15 mg PO BEDTIME 30 Days Qty: 30 0RF naltrexone 50 mg Tablet 50 mg PO DAILY 30 Days Qty: 30 0RF olanzapine 5 mg Tablet 5 mg PO Q4H PRN (Reason: agitation) 30 Days Qty: 60 0RF Print Language: Citizen Of [place]
[2024-11-25 03:02] VITALS: BP 100/78; PULSE 100; RESP 17; TEMP 36.9; O2SAT 95
--- NOTE | 2024-11-25 04:25 | PC.NURSE ---
pt ambulatory with steady gait to bathroom, pt unable to provider urine sample.
[2024-11-25 06:32] VITALS: RESP 18
[2024-11-25 06:34] VITALS: BP 104/61; PULSE 78; RESP 16; TEMP 36.8; O2SAT 96
--- NOTE | 2024-11-25 07:45 | PC.NURSE ---
pt woke up yelling why she is in the hospital, pt states that she just got intoxicated because she got into a verbal altercation with her daughter and went and bought alcohol, pt denies si/hi at this time, continuos on using vulgar language, and yelling. PA requested to come over to speak with the pt.
--- NOTE | 2024-11-25 08:15 | PC.NURSE ---
care team at bedside speaking with the pt
--- NOTE | 2024-11-25 08:37 | MHC.CARE ---
Pt does not meet the criteria for IPLOC at this time and denies SI, HI, and A/V/H. Pt is medically cleared and is able to be discharged. She will be provided with information on how to refer herself to [facility] in the community once her BAL is not high as it is today. Pt provided with safety plan and will be offered a Lyft ride to [facility] as there are no available area senior living beds.
[2024-11-25 08:46] LABS: Appearance Urine Hazy; Color Urine Yellow; Glucose Urine UA Negative (Negative); Leukocyte Esterase Urine Negative (Negative); Nitrite Urine Negative (Negative); Urine Blood Negative (Negative); Urine Ketones Negative (Negative); Urine Protein Negative (Neg-Trace)
[2024-11-25 08:49] LABS: Bacteria Urine 2+ (None Seen); Hyaline Casts Urine 0-2 /LPF (0-2); RBC Urine 0-2 /HPF (0-2); WBC Urine 0-5 /HPF (0-5)
[2024-11-25 09:08] LABS: Amphetamine Screen Urine Not Detected (Not Detect); Barbiturates, Urine Not Detected (Not Detect); Benzodiazepines Screen Urine Not Detected (Not Detect); Buprenorphine Scr Not Detected (Not Detect); Cannabinoid Screen Urine POSITIVE (Not Detect); Cocaine Screen Urine Not Detected (Not Detect); Fentanyl, urine Not Detected (Not Detect); Methadone Screen, Urine Not Detected (Not Detect); Opiate Screen Urine Not Detected (Not Detect); Oxycodone Screen Urine Not Detected (Not Detect); Phencyclidine Screen Urine Not Detected (Not Detect)
--- NOTE | 2024-11-25 09:27 | PC.NURSE ---
attempted to d/c the pt home, belongings given to the pt but the pt is yelling stating that the pants are not heres, dr tobias spoken to the pt's daughter and the daughter states that she changed the pt into the green sweatpants that the pt is reporting did not belong to her and that the EBT card is in the daughter's house
--- NOTE | 2024-11-25 09:28 | PC.NURSE ---
Attempting to d/c pt and pt increasingly agitated over belongings (pants and EBT card) not found. Dr Robb spoke to pt and permission to call daughter and see if other belongings are with pt. Daughter states pt was changed prior to coming to ED and cards and belongings are at home. Pt made aware.
[2024-11-25 09:33] VITALS: BP 121/62; PULSE 88; RESP 14; TEMP 37.5; O2SAT 100
[2024-11-25 10:30] VITALS: BP 121/62; PULSE 88; RESP 14; TEMP 37.5; O2SAT 100
== END 2024-11-25 10:32 | disposition home or self-care (01) ==
PROVIDERS: Emergency Provider Emergency Medicine Emergency Medical Services
DX: F10.129 Alcohol abuse with intoxication, unspecified (principal); Y90.8 Blood alcohol level of 240 mg/100 ml or more; Z79.899 Other long term (current) drug therapy; Z51.81 Encounter for therapeutic drug level monitoring
CPT/HCPCS: 36415; 80053; 80307; 81001; 85025; 99284; S9485

== ENCOUNTER 2024-12-02 11:09 | Emergency (ER) | payer OTHER, SELFPAY ==
--- NOTE | ~2024-12-02 | XR_ITS ---
EXAMINATION: XR CHEST CLINICAL INFORMATION: chest pain/ cough COMPARISON: None available. TECHNIQUE: Frontal view of the chest was obtained. FINDINGS: No significant abnormality is noted involving the heart, lungs, mediastinum, bony thorax or soft tissues. XR/XR chest 1V IMPRESSION: Unremarkable chest examination. Electronically signed by: Ricky Soler MD 12/02/2024 12:06 PM [facility] [place]
[2024-12-02 11:26] VITALS: BP 139/84; PULSE 81; RESP 16; TEMP 36.8; O2SAT 99; BMI 23.2
--- NOTE | 2024-12-02 11:29 | ECG_ITS ---
Test Reason : chest pain Blood Pressure : */* mmHG Vent. Rate : 64 BPM Atrial Rate : 64 BPM P-R Int : 124 ms QRS Dur : 94 ms QT Int : 380 ms P-R-T Axes : 37 56 57 degrees QTcB Int : 392 ms Normal sinus rhythm Normal ECG No previous ECGs available Referred By: Generic ED Physician Electronically Signed By: Justin Phillips
--- NOTE | 2024-12-02 11:53 | ED.CHESTPAIN ---
HPI - Chest Pain General Chief Complaint: Dyspnea Stated Complaint: CP X DAYS FROM [facility] PER EMS Time Seen by Provider: 12/02/24 11:32 Source: patient Mode of arrival: EMS Limitations: no limitations History of Present Illness HPI narrative: This is a 39 years old female patient presented to the emergency department with a chief complaint of chest pain. Patient is in inpatient psychiatric at [facility]. She states the pain is been going on for about at least 3 days started in the right side worse with movement. No diabetes she does not smoke MD complaint: chest pain Onset (ago): day(s) (3) Timing of current episode: constant Prior episodes: No Onset: during rest Pain location: substernal Pain radiation: none Severity: mild Relieving factors: rest Exacerbating factors: movement Risk Factors Coronary artery disease risk factors: none Related Data Home Medications ?Medication ?Instructions ?Recorded ?Confirmed acetaminophen 325 mg tablet 650 mg PO Q4H PRN mild to moderate 12/02/24 pain aluminum-mag hydroxide-simethicone 30 ml PO QID PRN GI upset 12/02/24 200 mg-200 mg-20 mg/5 mL oral susp benzocaine 15 mg-menthol 3.6 mg 1 aliza mucous membrane Q2H PRN Sore 12/02/24 lozenges Throat calcium carbonate 500 mg PO Q4H PRN Heartburn 12/02/24 clonidine HCl 0.1 mg tablet 0.1 mg PO BID PRN Anxiety 12/02/24 docusate sodium 100 mg capsule 100 mg PO BID PRN Constipation 12/02/24 guaifenesin 600 mg tablet, 1,200 mg PO BID PRN Cough 12/02/24 extended release 12 hr hydroxyzine pamoate 50 mg capsule 50 mg PO Q4H PRN moderate to 12/02/24 severe anxiety ibuprofen 400 mg tablet 400 mg PO Q8H PRN body ache 12/02/24 loperamide 2 mg capsule 2 mg PO QID PRN Loose Stool 12/02/24 magnesium hydroxide 2,400 mg/10 mL 30 ml PO DAILY PRN Constipation 12/02/24 oral suspension melatonin 3 mg tablet 3 mg PO BEDTIME PRN Insomnia 12/02/24 nicotine (polacrilex) 2 mg gum 2 mg buccal Q2H PRN nicotine 12/02/24 Withdrawal nicotine 21 mg/24 hr daily 1 patch transdermal DAILY PRN 12/02/24 transdermal patch Nicotine Cravings ondansetron 4 mg disintegrating 4 mg PO Q6H PRN neausea/vomiting 12/02/24 tablet sennosides 8.6 mg tablet 17.2 mg PO DAILY PRN Constipation 12/02/24 Previous Rx's ?Medication ?Instructions ?Recorded mirtazapine 15 mg tablet 15 mg PO BEDTIME 30 days #30 tabs 11/21/24 naltrexone 50 mg tablet 50 mg PO DAILY 30 days #30 tabs 11/21/24 olanzapine 5 mg tablet 5 mg PO BID 30 days 12/02/24 Allergies Allergy/AdvReac Type Severity Reaction Status Date / Time latex Allergy Unknown Verified 12/02/24 11:28 morphine Allergy Hives Verified 12/02/24 11:28 Review of Systems Constitutional: Constitutional: Reports no additional constitutional complaints ENT: Reports system reviewed and no additional complaints, except as documented Respiratory: Respiratory: Reports no additional respiratory complaints PMFSH Past Medical History [facility] Narrative: History of depression currently hospitalized a [facility] Social History Social History Household Members: Other Housing: Homeless Do you presently have visiting nurse or other home services: No Alcohol intake: current Patient Tobacco Use Status: Never used Tobacco Substance Use Type: Marijuana Advance Directives: No Advance Directives Information Provided: Yes service: No Sexual orientation: Straight/Heterosexual Physical Exam Vital Signs: Vital Signs: Last Vital Signs Temp 98.4 F 12/02/24 13:02 Pulse 65 12/02/24 13:02 Resp 13 12/02/24 13:02 BP 120/73 12/02/24 13:02 Pulse Ox 100 12/02/24 13:02 O2 Del Method Room Air 12/02/24 13:02 BMI result Body Mass Index 23.2 Patient looks well not toxic appearing Const: General: cooperative Nutritional Appearance: well nourished Orientation/consciousness: patient oriented x3 Limitations: no limitations HEENT: Other: Examination of the head eyes ears nose and throat within normal limit Head: Yes normal to inspection General nose exam: Normal external nose present Face and sinus: Yes normal facial exam Throat: Yes posterior oropharynx normal Neck: Neck: Yes normal visual inspection Thyroid: Thyroid normal Resp: Effort & Inspection: normal respiratory effort Auscultation: clear to auscultation bilaterally Cardio: Jugular venous distension: no JVD Rate: regular rate Rhythm: regular rhythm GI: Inspection: Yes normal to inspection Palpation (GI): Soft to palpation, not firm, nontender and no guarding Auscultation: normal bowel sounds Skin: General skin exam: no rashes or lesions noted and elasticity normal Lesions: no lesions Rashes: no rashes Neuro: General: patient oriented x3 Medications Administered Discontinued Medications Generic Name Dose Route Start Last Admin Trade Name Rosmery PRN Reason Stop Dose Admin Ibuprofen 800 mg 12/02/24 11:59 12/02/24 12:23 Ibuprofen 800 Mg Tablet PO 12/02/24 12:00 800 mg ONCE ONE Administration Medical Decision Making Medical Decision Making [facility] Narrative: Patient presented to the emergency department with complaining of chest pain for about 3 days clinically is musculoskeletal we will check anyway high sensitive troponin 1:09 PM patient is doing better high sensitive troponin is negative after 3 days of chest pain so I do not think we need to do another troponin, her pain is clearly musculoskeletal I can reproduce the pain with movement of the chest to the left and with palpation. I do not think she has a dissection, I do not think this is consistent with a PE she is satting 100% she is not tachycardic heart rate is 65. Again I can reproduce the pain. We will discharge back on anti-inflammatory medication ibuprofen Differential Diagnosis Differential Diagnoses: The differential diagnosis associated with the presentation includes ACS/musculoskeletal pain/PE Admission/Observation Consideration of admission/observation: Escalation of care including admission/observation considered Lab Data [facility] Lab Attestation statement: I reviewed the patient's lab results. 12/02/24 12:27 12/02/24 12:27 Labs: Lab Results 12/02/24 Range/Units 12:27 WBC 4.5 L (4.8-10.8) X10*3/uL RBC 3.96 L (4.20-5.50) X10*6/uL Hgb 13.2 (12.0-16.0) g/dl Hct 38.3 (37.0-47.0) % MCV 96.7 (80.0-98.0) fL MCH 33.3 H (27.0-33.0) pg MCHC 34.5 (31.0-35.0) g/dl RDW 13.0 (11.0-16.0) % Plt Count 189 (160-400) X10*3/uL MPV 10.3 (9.4-12.3) fL Sodium 141 (135-145) mmol/L Potassium 3.6 (3.3-5.1) mmol/L Chloride 103 (96-108) mmol/L Carbon Dioxide 31 H (22-29) mmol/L Anion Gap 11 L (12-20) BUN 11 (9-16) mg/dL Creatinine 0.65 (0.5-1.4) mg/dL Estim Creat Clear Calc 108.7 Estimated GFR > 60 Random Glucose 95 (60-115) mg/dL Calcium 9.1 (8.4-10.2) mg/dL Total Bilirubin 0.1 (0.0-1.0) mg/dL AST 16 (5-31) U/L ALT < 6 (0-31) U/L Alkaline Phosphatase 47 (39-117) U/L Troponin I High Sens < 2.7 (<3.5-17.0) ng/L Total Protein 6.9 (6.5-8.0) g/dL Albumin 3.6 (3.5-5.0) g/dL Independent Interpretation I performed an independent interpretation of an: EKG Interpretation: EKG was reviewed interpreted by me with sinus rhythm rate 64 ST-T changes Radiology Impression Discussion of test interpretation with radiology: I have reviewed the radiologist's reading. Discharge Plan Discharge Clinical Impression: Chest pain Qualifiers: Chest pain type: unspecified Qualified Code(s): R07.9 - Chest pain, unspecified Prescriptions: No Action clonidine HCl 0.1 mg Tablet 0.1 mg PO DAILY 30 Days Qty: 30 0RF Protocol: Hold for SBP< HOLD for SBP < : 90 hydroxyzine HCl 25 mg Tablet 25 mg PO Q6H PRN (Reason: Anxiety) 30 Days Qty: 60 0RF mirtazapine 15 mg Tablet 15 mg PO BEDTIME 30 Days Qty: 30 0RF naltrexone 50 mg Tablet 50 mg PO DAILY 30 Days Qty: 30 0RF sennosides 8.6 mg Tablet 17.2 mg PO DAILY PRN (Reason: Constipation) acetaminophen 325 mg Tablet 650 mg PO Q4H PRN (Reason: mild to moderate pain) loperamide 2 mg Capsule 2 mg PO QID PRN (Reason: Loose Stool) nicotine (polacrilex) 2 mg Gum 2 mg BUCCAL Q2H PRN (Reason: nicotine Withdrawal) hydroxyzine pamoate 50 mg Capsule 50 mg PO Q4H PRN (Reason: moderate to severe anxiety) melatonin 3 mg Tablet 3 mg PO BEDTIME PRN (Reason: Insomnia) ibuprofen 400 mg Tablet 400 mg PO Q8H PRN (Reason: body ache) nicotine 21 mg/24 hr Patch 24 Hour 1 patch TRANSDERMAL DAILY PRN (Reason: Nicotine Cravings) docusate sodium 100 mg Capsule 100 mg PO BID PRN (Reason: Constipation) calcium carbonate 500 mg calcium (1,250 mg) Tablet,Chewable 500 mg PO Q4H PRN (Reason: Heartburn) alum-mag hydroxide-simeth 200-200-20 mg/5 mL Suspension 30 ml PO QID PRN (Reason: GI upset) Rx Instructions: administer between meals and at bedtime ondansetron 4 mg Tablet,Disintegrating 4 mg PO Q6H PRN (Reason: neausea/vomiting) magnesium hydroxide 2,400 mg/10 mL Suspension 30 ml PO DAILY PRN (Reason: Constipation) benzocaine-menthol 15-3.6 mg Lozenge 1 aliza MUCOUS MEMBRANE Q2H PRN (Reason: Sore Throat) guaifenesin 600 mg Tablet Extended Release 12hr 1,200 mg PO BID PRN (Reason: Cough) Print Language: Hebrew
[2024-12-02] MEDS: Ibuprofen 800 MG TABLET PO (12:23)
[2024-12-02 12:36] LABS: Basophils Percent Auto 0.2 % (0-2); Eosinophils Percent Auto 0.2 % (0-4); Hematocrit 38.3 % (37.0-47.0); Hemoglobin 13.2 g/dl (12.0-16.0); Imm Gran Abs Auto 0.02 X10*3/uL (0.00-0.03); Imm Gran Pct Auto 0.4 % (0.0-0.4); Lymphocytes Absolute Auto 1.6 X10*3/uL (1.2-4.9); Lymphocytes Percent Auto 34.6 % (20-40); MANUAL DIFF FLAG SCAN; Mean Corpuscular HGB Conc 34.5 g/dl (31.0-35.0); Mean Corpuscular Hemoglobin 33.3 pg (27.0-33.0); Mean Corpuscular Volume 96.7 fL (80.0-98.0); Mean Platelet Volume 10.3 fL (9.4-12.3); Monocytes Absolute Auto 0.3 X10*3/uL (0.1-1.2); Neutrophils Absolute Auto 2.6 x10*3/uL (2.0-8.3); Neutrophils Percent Auto 58.6 % (45-73); Platelet Count 189 X10*3/uL (160-400); Red Blood Count 3.96 X10*6/uL (4.20-5.50); SCAN SMEAR FLAG 1; White Blood Count 4.5 X10*3/uL (4.8-10.8)
[2024-12-02 12:52] LABS: Alanine Aminotransferase < 6 U/L (0-31); Albumin Level 3.6 g/dL (3.5-5.0); Alkaline Phosphatase 47 U/L (39-117); Anion Gap 11 (12-20); Aspartate Amino Transferase 16 U/L (5-31); Bilirubin Total 0.1 mg/dL (0.0-1.0); Blood Urea Nitrogen 11 mg/dL (9-16); Calcium 9.1 mg/dL (8.4-10.2); Carbon Dioxide 31 mmol/L (22-29); Chloride 103 mmol/L (96-108); Creatinine Clr Calc Pharmacy 108.7; Estimated Glomerular Filt Rate > 60; Glucose Random 95 mg/dL (60-115); Potassium 3.6 mmol/L (3.3-5.1); Sodium 141 mmol/L (135-145); Total Protein 6.9 g/dL (6.5-8.0)
[2024-12-02 12:55] LABS: Troponin-I High Sensitivity < 2.7 ng/L (<3.5-17.0)
[2024-12-02 13:02] VITALS: BP 120/73; PULSE 65; RESP 13; TEMP 36.9; O2SAT 100
[2024-12-02 13:23] LABS: Influenza A PCR POSITIVE (Negative); Influenza B PCR NEGATIVE (Negative); Resp Syncy Virus RNA Qual PCR NEGATIVE (Negative); SARS COV2 PCR INHOUSE NEGATIVE (Negative)
[2024-12-02 13:30] LABS: SLIDE REVIEW VERIFIED
[2024-12-02 17:15] VITALS: BP 131/84; PULSE 83; RESP 14; TEMP 36.5; O2SAT 99
[2024-12-02 20:11] VITALS: BP 131/84; PULSE 83; RESP 14; TEMP 36.5; O2SAT 99
== END 2024-12-02 20:11 ==
PROVIDERS: Emergency Provider Emergency Medicine
DX: R07.9 Chest pain, unspecified (principal); Z03.818 Encounter for observation for suspected exposure to other biological agents ruled out
CPT/HCPCS: 0241U; 71045; 80053; 84484; 85025; 93005; 99283; 99285

== ENCOUNTER → 2024-12-02 11:29 | Outpatient (BNV) | payer OTHER, SELFPAY | PROVIDERS: Emergency Provider Emergency Medicine; Visit Provider Internal Medicine Cardiovascular Disease | DX: R07.9 Chest pain, unspecified (principal) | CPT/HCPCS: 93010 ==

== ENCOUNTER → 2024-12-02 11:29 | Outpatient (BNV) | payer OTHER, SELFPAY | PROVIDERS: Emergency Provider Emergency Medicine; Visit Provider Radiology Diagnostic Radiology | DX: R07.9 Chest pain, unspecified (principal); R05.9 Cough, unspecified | CPT/HCPCS: 71045 ==

== ENCOUNTER 2025-03-06 12:46 | Inpatient (IN) | payer OTHER, SELFPAY ==
[2025-03-06 14:10] LABS: Alanine Aminotransferase 13 U/L (0-31); Albumin Level 4.4 g/dL (3.5-5.0); Anion Gap 14 (12-20); Aspartate Amino Transferase 22 U/L (5-31); Bilirubin Total 0.6 mg/dL (0.0-1.0); Blood Urea Nitrogen 7 mg/dL (9-16); Calcium 9.8 mg/dL (8.4-10.2); Carbon Dioxide 28 mmol/L (22-29); Chloride 99 mmol/L (96-108); Estimated Glomerular Filt Rate > 60; Glucose Random 111 mg/dL (60-115); Potassium 3.4 mmol/L (3.3-5.1); Sodium 138 mmol/L (135-145); Total Protein 8.3 g/dL (6.5-8.0)
[2025-03-06 14:13] LABS: Alkaline Phosphatase 78 U/L (39-117)
[2025-03-06 14:31] VITALS: BP 145/87; PULSE 84; RESP 16; TEMP 36.6; O2SAT 99
[2025-03-06 14:33] VITALS: BMI 29.6
--- OUTSIDE RECORDS SUMMARY | 2025-03-06 15:31 | XMS_ITS | Encounter Summary ---
Author Organization [facility] [place] [address] Care Team Providers Care Rubber Mill Tender Name Role Phone Physician, No Pcp Primary Care Provider Unavaila ble Encounter Details Date Type Department Care Team (Late st Contact Info) Description 03/04/2025 Referral Triage [facility] [address] [place] [address] Petra Casanova Social History Tobacco Use Types Packs/Day Years Used Date Smoking Tobacco: Never Smokeless Tobacco: Never Alcohol Use Standard Drinks/Week Comments Yes 0 (1 standard drink = 0.6 oz pur e alcohol) 1 pint liquor daily Housing Instability Answer Date Recorde d Are you worried that in the next 2 months you may not have stable housing? Yes 03/05/2025 Food Access & Nutrition Answer Date Rec orded Do you have access to a vari ety of food including fruits and vegetables? No 03/05/2025 Access to Healthcare Answer Date Record ed Within the last 3 months, ho w many times did you visit the emergency department for your medical care? 1 03/05/2025 Health Literacy Answer Date Recorded How often do you need to hav e someone help you when you read instructions, pamphlets, or other written material from your doctor or pharmacy? Rarely 03/05/2025 Caregiver: How often do you need to have someone help you when you read instructions, pamphlets, or other written material from your doctor or pharmacy? Not on file 03/05/2025 Financial Risk Answer Date Recorded How hard is it for you to pa y for the very basics like food, housing, medical care, and air conditioning / heating? Not very hard 03/05/2025 Transportation Answer Date Recorded Has the lack of transportati on kept you from meetings, work, or from getting things needed for daily living? Yes Has the lack of transportati on kept you from medical appointments or from getting medications? Yes 03/05/2025 Social Isolation Answer Date Recorded How often do you feel lonely or isolated from th ose around you? Never 03/05/2025 Food Risk Answer Date Recorded Within the past 12 months we worried whether our food would run out before we got money to buy more. Sometimes true 025 Within the past 12 months th e food we bought just didn't last and we didn't have money to get more. Sometimes true 03/05/2025 Dependent Care Answer Date Recorded Do you need help finding or paying for care for your loved ones. For example, vocational childcare teacher or elderly care for an older adult? No 03/05/2025 Education Answer Date Recorded Do you think completing more education or training, like finishing a GED, going to college, or learning a trade, would be helpful for you? No 03/05/2025 Employment and Income Answer Date Recor ded During the last four weeks, have you been actively looking for work? No 03/05/2025 Living Situation Answer Date Recorded What is your living situation? 0 03/05/2025 Interpersonal Safety Answer Date Record ed Physical Abuse 03/04/2025 Verbal Abuse 03/04/2025 Comments Unknown Sex and Gender Information Value Date Recorded Sex Assigned at Female 11/25/2024 10:08 PM EST Legal Sex Female 12:46 PM EST Gender Identity Female 11/25/2024 10:08 PM EST Sexual Orientation Straight 11/25/2024 10 :08 PM EST documented as of this encounter Functional Status * Are you deaf or do you have serious difficulty hearing? Answer Date of Assessment Author No 03/04/2025 2:38 AM Shante Quigley RN * Are you blind or do you have serious difficulty seeing, even when wearing glasses? Answer Date of Assessment Author No 03/04/2025 2:38 AM Shante Quigley RN * Do you have serious difficulty walking or climbing stairs? Answer Date of Assessment Author No 03/04/2025 2:38 AM Shante Quigley RN * Do you have serious difficulty dressing or bathing? Answer Date of Assessment Author No 03/04/2025 2:38 AM Shante Quigley RN * Because of a physical, mental, or emotional condition, do you have serious difficulty doing errandsalone such as visiting the doctor? Answer Date of Assessment Author No 03/04/2025 2:38 AM Shante Quigley RN documented as of this encounter Mental Status * Because of a physical, mental, or emotional condition, do you have serious difficulty concentrating, remembering, or making decisions? (5 years old or older) Answer Entry Date Author No 03/04/2025 2:38 AM Shante Quigely RN documented in this encounter Plan of Treatment Not on file documented as of this encounter Visit Diagnoses Not on filedocumented in this encounter Care Teams Rubber Mill Tender Relationship Specialty Start Date End Date Physician, No Pcp PCP - General 11/25/24 documented as of this encounter
--- OUTSIDE RECORDS SUMMARY | 2025-03-06 15:31 | XMS_ITS ---
Author Organization [facility] Address [address] [place] [address] Phone Care Team Providers Care Commanding Officer Garage Name Role Phone Physician, No Pcp Primary Care Provider [facility] Status:Ongoing (Active) Start date:03/04/2025 Enrollment date:03/05/2025 Current support & services provided:Adult Overview Community Health Worker Program Case Team Name Relationship Phone Aldair Hammond Community Health Worker(Responsi airam Staff) Continued Care and Services Coordination
--- OUTSIDE RECORDS SUMMARY | 2025-03-06 15:31 | XMS_ITS | Clinical Summary ---
Author Organization [facility] Address [address] [place] [address] Phone Care Team Providers Care Quality Management Nurse Name Role Phone Physician, No Pcp Primary Care Provider Unavaila ble Allergies Active Allergy Reactions Criticality Noted Date Comments Latex 11/25/2024 Medications Ventolin HFA 90 mcg/actuation inhaler Inhale 2 puffs by mouth every 2 (two) hours if needed for wheezing. 12/17/19 25 Active divalproex (DEPAKOTE) [address] tablet Take 1 tablet (500 mg total) by mouth every 12 (twelve) hours. Do not crush, chew, or split. 03/06/20 25 025 Active folic acid (FOLVITE) 1 mg tablet Take 1 tablet (1 mg total) by mouth 1 (one) time each day. 03/07/20 25 025 Active naltrexone (DEPADE) 50 mg tablet Take 1 tablet (50 mg total) by mouth 1 (one) time each day. 03/07/20 25 025 Active sertraline (ZOLOFT) 25 mg tablet Take 1 tablet (25 mg total) by mouth at bedtime. 03/06/20 25 025 Active thiamine (VITAMIN B-1) 100 mg tablet Take 1 tablet (100 mg total) by mouth 1 (one) time each day. 03/07/20 25 025 Active lidocaine 4 % patch Apply 1 patch topically 1 (one) time each day for 5 days. Apply to low back daily and remove at bedtime 03/06/20 25 025 Active cloNIDine (CATAPRES) 0.1 mg tablet Take 1 tablet (0.1 mg total) by mouth 1 (one) time each day. 11/21/19 025 Discontinued hydrOXYzine pamoate (VISTARIL) 50 mg capsule Take 1 capsule (50 mg total) by mouth every 4 (four) hours if needed for anxiety. 12/17/19 025 Discontinued melatonin 3 mg tablet Take 2 tablets (6 mg total) by mouth at bedtime as needed. 12/17/19 025 Discontinued mirtazapine (REMERON) 30 mg tablet Take 1 tablet (30 mg total) by mouth at bedtime. at bedtime. 12/17/19 025 Discontinued OLANZapine (ZyPREXA) 5 mg tablet Take 1 tablet (5 mg total) by mouth 2 (two) times a day. 12/17/19 025 Discontinued naltrexone (DEPADE) 50 mg tablet Take 1 tablet (50 mg total) by mouth 1 (one) time each day. 11/21/19 025 Discontinued hydrOXYzine HCL (ATARAX) 25 mg tablet Take 1 tablet (25 mg total) by mouth every 6 (six) hours if needed for anxiety. 11/21/19 025 Discontinued Active Problems Problem Noted Date Diagnosed Date Alcohol withdrawal seizure ([facility] V24, [facility] V28) 03/04/2025 Encounters Date Type Department Care Team Description 03/04/2025 Referral Triage [facility] [address] [place] [id number] Petra Casanova 03/03/2025 8:33 PM EDT - 03/06/2025 12:20 PM EDT Hospital Encounter [facility] [address] [place] [address] Gilmar Casarez MD Garvin, MD Ace Vann Christopher, MD Seralathan, Manikandan, MD Kela, Gianni Chen MD Suicidal ideation (Primary Dx); Alcohol use disorder; Alcohol withdrawal seizure with complication (CMS/HCC V24, [facility] V28); Hypomagnesemia; Hypokalemia; Homeless Discharge Disposition: Short Term Hospital from Last 3 Months Medical History Medical History Date Comments Asthma Family History Medical History Relation Name Comments Diabetes Father Hypertension Father Diabetes Mother Hypertension Mother Relation Name Status Comments Father Mother Social History Tobacco Use Types Packs/Day Years Used Date Smoking Tobacco: Never Smokeless Tobacco: Never Tobacco Cessation:Counseling Given: Not Answered Alcohol Use Standard Drinks/Week Comments Yes 0 [...] care for your loved ones. For example, child neurologist or elderly care for an older adult? [...] Orientation Straight 11/25/2024 10 :08 PM EST Obstetrics History Last Filed Vital Signs Vital Sign Reading Time Taken Comments Blood Pressure 144/73 03/06/2025 8:33 AM EDT Pulse 83 03/06/2025 8:33 AM EDT Temperature 36.4 ??C (97.5 ??F) 03/06/2025 8:33 AM ED T Respiratory Rate 17 03/06/2025 8:33 AM EDT Oxygen Saturation 100% 03/06/2025 8:33 AM EDT Inhaled Oxygen Concentration - - Weight 74.8 kg (165 lb) 03/03/2025 9:31 PM EDT Height 167.6 cm (5' 6 ) 03/03/2025 9:31 PM EDT Body Mass Index 26.63 03/03/2025 9:31 PM EDT Plan of Treatment Health Maintenance Due Date Last Done Comments Breast Cancer Screening 1985 Hepatitis A Vaccines (1 of 2 - Risk 2-dose series) 02/04/2004 Hepatitis B Vaccines (1 of 3 - 19+ 3-dose series) 02/04/2004 Cervical Cancer Screening: Pap Smear 2006 DTaP,Tdap,and Td Vaccines (8 - Td or Tdap) 09/06/2013 09/06/2003, 09/09/1999, 04/11/1990, Additional history exists Depression Screening 10/18/2022 HIV Screening 10/18/2022 Hepatitis C Screening 10/18/2022 COVID-19 Vaccine ( season) 2024 Influenza Vaccine (Season Ended) 2025 Social Influencers of Health Screening 03/05/2026 03/05/2025 HIB Vaccines Completed 01/15/1987 IPV Vaccines Completed 04/11/1990, 12/22, 1985, Additional history exists MMR Vaccines Completed 04/16/1996, 02/21/1986 HPV Vaccines Aged Out No longer eligi ble based on patient's age to complete this topic Meningococcal ACWY Vaccine Aged Out N o longer eligible based on patient's age to complete this topic Meningococcal B Vaccine Aged Out No l onger eligible based on patient's age to complete this topic Pneumococcal Vaccine: Pediatrics (0 to 5 Years) and At-Risk Patients (6 to 64 Years) Aged Out No longer eligible based on patient's age to complete this topic RSV Immunization Patients Under 20 months Aged Out No longer eligible based on patient's age to complete this topic Varicella Vaccines Aged Out No longer eligible based on patient's age to complete this topic Procedures Procedure Name Priority Date/Time Associated Diagnosis Comments COMPREHENSIVE METABOLIC PANEL Routine 03/06/2025 7:01 AM EDT LAVENDER - EDTA Routine 03/06/2025 6:58 AM EDT EXTRA TUBES Routine 03/06/2025 6:58 AM EDT ECG ANNOTATED 03/06/2025 CBC WITH AUTO DIFFERENTIAL Routine 03/05/2025 6:29 AM EDT PHOSPHORUS Routine 03/05/2025 6:29 AM EDT BASIC METABOLIC PANEL Routine 03/05/2025 6:29 AM EDT CBC AND DIFFERENTIAL Routine 03/05/2025 6:29 AM EDT ROUTINE EEG Routine 03/04/2025 12:26 PM EDT MAGNESIUM Routine 03/04/2025 7:50 AM EDT CBC WITH AUTO DIFFERENTIAL Routine 03/04/2025 7:50 AM EDT CBC AND DIFFERENTIAL Routine 03/04/2025 7:50 AM EDT BASIC METABOLIC PANEL Routine 03/04/2025 7:[address] HEAD WO CONTRAST STAT 03/04/2025 4 :16 AM EDT ECG 12-LEAD STAT 03/04/2025 2:34 AM EDT POCT GLUCOSE BLOOD Routine 03/04/2025 1: 40 AM EDT HCG, SERUM, QUALITATIVE STAT Add-on 03/03/2025 9:46 PM EDT MAGNESIUM Add-On 03/03/2025 9:46 PM EDT SST - GOLD Routine 03/03/2025 9:46 PM EDT EXTRA TUBES Routine 03/03/2025 9:46 PM EDT CBC WITH AUTO DIFFERENTIAL STAT 03/03/2025 9:46 PM EDT SALICYLATE LEVEL STAT 03/03/2025 9:46 PM EDT ACETAMINOPHEN LEVEL STAT 03/03/2025 9 :46 PM EDT ETHANOL STAT 03/03/2025 9:46 PM EDT COMPREHENSIVE METABOLIC PANEL STAT 03/03/2025 9:46 PM EDT CBC AND DIFFERENTIAL STAT 03/03/2025 9:46 PM EDT METHADONE SCREEN, URINE STAT 03/03/2025 9:24 PM EDT PHENCYCLIDINE, URINE STAT 03/03/2025 9:24 PM EDT BUPRENORPHINE SCREEN, URINE STAT 03/03/2025 9:24 PM EDT DRUG ABUSE SCREEN 8A PANEL, URINE STAT 03/03/2025 9:24 PM EDT from Last 3 Months Results * (ABNORMAL) Comprehensive metabolic panel (03/06/2025 7:01 AM EDT) Only the most recent of2 resultswithin the time period is included. Sodium 139 133 - 145 mmol/L LAB CHEMISTRY METHOD 03/06/2025 9:00 AM [facility] Potassium 3.4(L) 3.5 - 5.5 mmol/L LAB CHEMISTRY METHOD 03/06/2025 9:00 AM [facility] Chloride 102 96 - 110 mmol/L LAB CHEMISTRY METHOD 03/06/2025 9:00 AM [facility] CO2 26 21 - 32 mmol/L LAB CHEMISTRY METHOD 03/06/2025 9:00 AM [facility] Anion Gap 11 3 - 11 LAB CHEMISTRY METHOD 03/06/2025 9:00 AM [facility] Glucose 85 70 - 100 mg/dL LAB CHEMISTRY METHOD 03/06/2025 9:00 AM [facility] BUN 7 5 - 25 mg/dL LAB CHEMISTRY METHOD 03/06/2025 9:00 AM [facility] Creatinine 0.70 0.50 - 1.10 mg/dL LAB CHEMISTRY METHOD 03/06/2025 9:00 AM [facility] eGFR 112 >=60 mL/min/1. 73m2 LAB CHEMISTRY METHOD 03/06/2025 9:00 AM [facility] Comment:Calculation based on the??Chronic Kidney Disease Epidemiology Collaboration (CKD-EPI) equation refit??without adjustment for race. BUN/Creatinine Ratio 10.0 LAB CHEMISTRY METHOD 03/06/2025 9:00 AM [facility] Calcium 9.7 8.5 - 10.5 mg/dL LAB CHEMISTRY METHOD 03/06/2025 9:00 AM EDT [facility] AST (SGOT) 15 10 - 42 unit/L LAB CHEMISTRY METHOD 03/06/2025 9:00 AM [facility] ALT (SGPT) 17 10 - 60 unit/L LAB CHEMISTRY METHOD 03/06/2025 9:00 AM EDT [facility] Alkaline Phosphatase 81 42 - 121 unit/L LAB CHEMISTRY METHOD 03/06/2025 9:00 AM T [facility] Total Protein 7.6 6.0 - 8.0 g/dL LAB CHEMISTRY METHOD 03/06/2025 9:00 AM [facility] Albumin 3.6 3.2 - 5.0 g/dL LAB CHEMISTRY METHOD 03/06/2025 9:00 AM [facility] Total Bilirubin 0.7 0.0 - 1.4 mg/dL LAB CHEMISTRY METHOD 03/06/2025 9:00 AM [facility] Blood Venous blood specimen / Unknown Venipuncture / Unknown 03/06/2025 7:01 AM EDT 03/06/2025 7:30 AM EDT Mary Anne GARCIA LAB BLOOD ORDERABLES Final Result [facility] [address] [place] [address], * Lavender tube (03/06/2025 6:58 AM EDT) Extra Tube Hold for add-ons. 03/06/2025 9:01 AM EDT [facility] Comment:Auto resulted. Blood Venous blood specimen / Unknown Venipuncture / Unknown 03/06/2025 6:58 AM EDT 03/06/2025 7:31 AM EDT Gianni Greer MD LAB BLOOD ORDERABLE S Final Result [facility] [address] [place] [address], [place] [phone] * ECG-Annotated (03/06/2025) us Provider Onbase MD ECG ORDERABLES Final Result * (ABNORMAL) CBC auto differential (03/05/2025 6:29 AM EDT) Only the most recent of3 resultswithin the time period is included. WBC 4.0(L) 4.8 - 10.8 K/mcL LAB HEMETOLOGY METHOD 03/05/2025 7:24 AM EDT [facility] RBC 3.70(L) 3.80 - 4.80 M/mcL LAB HEMETOLOGY METHOD 03/05/2025 7:24 AM EDT [facility] Hemoglobin 11.1(L) 11.5 - 16.0 g/dL LAB HEMETOLOGY METHOD 03/05/2025 7:24 AM EDT [facility] Hematocrit 34.3(L) 35.0 - 47.0 % LAB HEMETOLOGY METHOD 03/05/2025 7:24 AM EDT [facility] MCV 93.5 79.0 - 98.0 FL LAB HEMETOLOGY METHOD 03/05/2025 7:24 AM EDT [facility] MCH 30.2 27.0 - 32.0 pcg LAB HEMETOLOGY METHOD 03/05/2025 7:24 AM EDT [facility] MCHC 32.4 32.0 - 37.0 g/dL LAB HEMETOLOGY [facility] RDW 13.5 11.0 - 15.0 % LAB HEMETOLOGY METHOD 03/05/2025 7:24 AM [facility] Platelets 197 130 - 400 K/mcL LAB HEMETOLOGY METHOD 03/05/2025 7:24 AM [facility] MPV 11.0 7.0 - 11.0 FL LAB HEMETOLOGY METHOD 03/05/2025 7:24 AM [facility] NRBC 0.0 <1.0 % LAB HEMETOLOGY METHOD 03/05/2025 7:24 AM [facility] NRBC Absolute 0.00 <0.10 K/mcL LAB HEMETOLOGY METHOD 03/05/2025 7:24 AM [facility] Neutrophils Relative 31.3 % LAB HEMETOLOGY METHOD 03/05/2025 7:24 AM [facility] Lymphocytes Relative 55.1 % LAB HEMETOLOGY METHOD 03/05/2025 7:24 AM [facility] Monocytes Relative 8.0 % LAB HEMETOLOGY METHOD 03/05/2025 7:24 AM [facility] Eosinophils Relative 4.7 % LAB HEMETOLOGY METHOD 03/05/2025 7:24 AM [facility] Basophils Relative 0.7 % LAB HEMETOLOGY METHOD 03/05/2025 7:24 AM [facility] Immature Granulocytes Relative 0.2 % LAB HEMETOLOGY METHOD 03/05/2025 7:24 AM [facility] Neutrophils Absolute 1.25(L) 1.50 - 7.00 K/mcL LAB HEMETOLOGY METHOD 03/05/2025 7:24 AM [facility] Lymphocytes Absolute 2.21 1.00 - 5.00 K/mcL LAB HEMETOLOGY METHOD 03/05/2025 7:24 AM [facility] Monocytes Absolute 0.32 0.20 - 1.00 K/mcL LAB HEMETOLOGY METHOD 03/05/2025 7:24 AM EDT [facility] Eosinophils Absolute 0.19 0.00 - 0.50 K/[facility] LAB HEMETOLOGY METHOD 03/05/2025 7:24 AM EDT [facility] Basophils Absolute 0.03 0.00 - 0.20 K/[facility] LAB HEMETOLOGY METHOD 03/05/2025 7:24 AM EDT [facility] Immature Granulocytes Absolute 0.01 0.00 - 0.03 /[facility] LAB HEMETOLOGY METHOD 03/05/2025 7:24 AM EDT [facility] Blood Venous blood specimen / Unknown Venipuncture / Unknown 03/05/2025 6:29 AM EDT 03/05/2025 7:05 AM EDT Mary Anne GARCIA LAB BLOOD ORDERABLES Final Result Performing Organization Address City/[facility]/ZIP Co de Phone Number [facility] [address] [place] [address], [place] [phone] * Phosphorus (03/05/2025 6:29 AM EDT) [facility] Phosphorus 3.2 2.5 - 4.5 mg/dL LAB CHEMISTRY METHOD 03/05/2025 8:04 AM EDT [facility] Blood Venous blood specimen / Unknown Venipuncture / Unknown 03/05/2025 6:29 AM EDT 03/05/2025 7:05 AM EDT Mary Anne GARCIA LAB BLOOD ORDERABLES Final Result Performing Organization Address City/[facility]/ZIP Co de Phone Number [facility] [address] [place] [address], [place] [phone] * (ABNORMAL) Basic metabolic panel (03/05/2025 6:29 AM EDT) Only the most recent of2 resultswithin the time period is included. Sodium 139 133 - 145 mmol/L LAB CHEMISTRY METHOD 03/05/2025 8:03 AM [facility] Potassium 3.5 3.5 - 5.5 mmol/L LAB CHEMISTRY METHOD 03/05/2025 8:03 AM [facility] Chloride 106 96 - 110 mmol/L LAB CHEMISTRY METHOD 03/05/2025 8:03 AM [facility] CO2 26 21 - 32 mmol/L LAB CHEMISTRY METHOD 03/05/2025 8:03 AM [facility] Anion Gap 7 3 - 11 LAB CHEMISTRY METHOD 03/05/2025 8:03 AM [facility] Glucose 89 70 - 100 mg/dL LAB CHEMISTRY METHOD 03/05/2025 8:03 AM [facility] BUN 4(L) 5 - 25 mg/dL LAB CHEMISTRY METHOD 03/05/2025 8:03 AM [facility] Creatinine 0.64 0.50 - 1.10 mg/dL LAB CHEMISTRY METHOD 03/05/2025 8:03 AM [facility] eGFR 115 >=60 mL/min/1. 73m2 LAB CHEMISTRY METHOD 03/05/2025 8:03 AM [facility] Comment:Calculation based on the??Chronic Kidney Disease Epidemiology Collaboration (CKD-EPI) equation refit??without adjustment for race. BUN/Creatinine Ratio 6.3 LAB CHEMISTRY METHOD 03/05/2025 8:03 AM [facility] Calcium 9.3 8.5 - 10.5 mg/dL LAB CHEMISTRY METHOD 03/05/2025 8:03 AM [facility] Blood Venous blood specimen / Unknown Venipuncture / Unknown 03/05/2025 6:29 AM EDT 03/05/2025 7:05 AM EDT us Mary Anne GARCIA LAB BLOOD ORDERABLES Final Result [facility] [address] [place] [address], [place] [phone] * Routine EEG (03/04/2025 12:26 PM EDT) Narrative Danny Henley MD - 03/04/2025 2:10 PM EDT This is a 16 channel EEG with an EKG lead. ??Patient is reported awake and drowsy during the tracing. ??Background EEG rhythm is 10 to 12 Hz 5 to 70 ??V posteriorly lower amplitude faster anteriorly. ??Patient transition in and out of drowsiness. ??Intermittently left temporal sharp and slow waves were noted. ??Cardiac lead did not reveal any significant abnormality. ?? Photic stimulation did not produce any significant driving. ?? Hyperventilation was not performed. Impression: Mildly abnormal EEG suggestive of left temporal irritability that could result in partial or complex partial seizures. Obdulio Bello MD NEUROLOGY ORDERABLES Final Result * Magnesium (03/04/2025 7:50 AM EDT) Only the most recent of2 resultswithin the time period is included. [facility] Magnesium 2.3 1.9 - 2.6 mg/dL LAB CHEMISTRY METHOD 03/04/2025 8:30 AM EDT [facility] Blood Venous blood specimen / Unknown Venipuncture / Unknown 03/04/2025 7:50 AM EDT 03/04/2025 7:54 AM EDT Obdulio Bello MD LAB BLOOD ORDERABLES Final Result [facility] [address] [place] [address], [place] [phone] * CT Head wo Contrast (03/04/2025 4:16 AM EDT) Anatomical Region Laterality Modality Head and Neck Computed Tomogra phy 03/04/2025 5:29 AM EDT Impressions 03/04/2025 5:29 AM EDT 1. No acute intracranial findings by noncontrast CT. Consider further assessment with MRI if clinically warranted. This document has been electronically signed by: William Starkey MD on 03/04/2025 05:29:18 Narrative 03/04/2025 5:29 AM EDT INDICATION: Seizure, nontraumatic (Age 18-40y) CT head without contrast Comparison: None Findings: No intra-axial mass, midline shift, hydrocephalus, or acute hemorrhage. No significant atrophy-like change or white matter disease. There is no sinus or mastoid fluid. The orbits are unremarkable. There is no acute fracture. Procedure Note William Starkey - 03/04/2025 INDICATION: Seizure, nontraumatic (Age 18-40[address]) CT head without contrast Comparison: None Findings: No intra-axial mass, midline shift, hydrocephalus, or acute hemorrhage. No significant atrophy-like change or white matter disease. There is no sinus or mastoid fluid. The orbits are unremarkable. There is no acute fracture. IMPRESSION: 1. No acute intracranial findings by noncontrast CT. Consider further assessment with MRI if clinically warranted. This document has been electronically signed by: William Starkey MD on 03/04/2025 05:29:18 Obdulio Bello MD IMG CT PROCEDURES Final Res ult * ECG 12 lead (03/04/2025 2:34 AM EDT) Ventricular Rate ECG 72 BPM GEMUSE Atrial Rate 72 BPM GEMUSE P-R Interval 158 ms GEMUSE QRS Duration 102 ms GEMUSE Q-T Interval 386 ms GEMUSE QTc 422 ms GEMUSE P Wave [place] 21 degrees GEMUSE R [place] 58 degrees GEMUSE T [place] 57 degrees GEMUSE ECG Interpretation Normal sinus rhythm No previous ECGs available Confirmed by CHUN LOVELL ([id number]) on 03/04/2025 6:16:19 PM GEMUSE 03/04/2025 2:34 AM EDT 03/04/2025 6:16 PM EDT us Jelena Cormier MD ECG ORDERABLES Final Re sult Performing Organization Address [facility] Co de Phone Number PHILIPPE * (ABNORMAL) POCT Glucose, blood (03/04/2025 1:40 AM EDT) [facility] Glucose POCT 165(H) 70 - 100 mg/dL 03/04/2025 1:41 AM EDT [facility] POCT Comment RN Notified 03/04/2025 1:41 AM EDT [facility] Blood Capillary blood specimen / Unknown 03/04/2025 1:40 AM EDT 03/04/2025 1:42 AM EDT Jelena Cormier MD LAB POINT OF CAR E TEST DOCKED DEVICE UNSOLICITED RESULTS Final Result Performing Organization Address [facility] Co de Phone Number [facility] [address] [place] [address], [place] [phone] * SST tube (03/03/2025 9:46 PM EDT) [facility] Extra Tube Hold for add-ons. 03/04/2025 12:02 AM EDT [facility] Comment:Auto resulted. Blood Venous blood specimen / Unknown 03/03/2025 9:46 PM EDT 03/03/2025 10:06 PM EDT us Gilmar Casarez MD LAB BLOOD ORDERABLES Final Resu lt Performing Organization Address [facility] Co de Phone Number [facility] [address] [place] [address], [place] [phone] * hCG, serum, qualitative (03/03/2025 9:46 PM EDT) [facility] hCG Qual Negative Negative 03/04/2025 3:53 AM EDT [facility] Blood Venous blood specimen / Unknown Venipuncture / Unknown 03/03/2025 9:46 PM EDT 03/03/2025 10:03 PM EDT Jelena Cormier MD LAB BLOOD ORDERABLES Fin al Result Performing Organization Address [facility]/ZIP Co de Phone Number [facility] [address] [place] [address], [place] [phone] * Ethanol (03/03/2025 9:46 PM EDT) Ethanol Level <3 0 - 10 mg/dL LAB CHEMISTRY METHOD 03/03/2025 10:44 PM EDT [facility] Blood Venous blood specimen / Unknown Venipuncture / Unknown 03/03/2025 9:46 PM EDT 03/03/2025 10:03 PM EDT Gilmar Casarez MD LAB BLOOD ORDERABLES Final Resu lt Performing Organization Address [facility]/ZIP Co de Phone Number [facility] [address] [place] [address], [place] [phone] * (ABNORMAL) Acetaminophen level (03/03/2025 9:46 PM EDT) Acetaminophen Level <2.0(L) 10.0 - 30.0 mcg/mL LAB CHEMISTRY METHOD 03/03/2025 10:44 PM EDT [facility] Blood Venous blood specimen / Unknown Venipuncture / Unknown 03/03/2025 9:46 PM EDT 03/03/2025 10:03 PM EDT Gilmar Casarez MD LAB BLOOD ORDERABLES Final Resu lt Performing Organization Address City/[facility]/ZIP Co de Phone Number [facility] [address] [place] [address], [place] [phone] * Salicylate level (03/03/2025 9:46 PM EDT) Salicylate Level 5.4 2.0 - 29.0 mg/dL LAB CHEMISTRY METHOD 03/03/2025 10:44 PM EDT [facility] Blood Venous blood specimen / Unknown Venipuncture / Unknown 03/03/2025 9:46 PM EDT 03/03/2025 10:03 PM EDT us Gilmar Casarez MD LAB BLOOD ORDERABLES Final Resu lt [facility] [address] [place] [address], * (ABNORMAL) Drug abuse screen 8a panel, urine (03/03/2025 9:24 PM EDT) Amphetamine Screen, Ur Negative Negative LAB CHEMISTRY METHOD 5 10:10 PM EDT [facility] Comment:Certain OTC medicati ons containing ephedrine, phenylephrine, pseudoephedrine and phenylpropanolamine can cause false positive results. Barbiturate Screen, Ur Negative Negative LAB CHEMISTRY METHOD 5 10:10 PM EDT [facility] Benzodiazepine Screen, Ur Negative Negative LAB CHEMISTRY METHOD 5 10:10 PM EDT [facility] Cocaine Screen, Ur Negative Negative LAB CHEMISTRY METHOD 5 10:10 PM EDT [facility] Opiate Screen, Ur Negative Negative LAB CHEMISTRY METHOD 5 10:10 PM EDT [facility] Cannabinoid (THC) Screen, Ur Positive(A ) Negative LAB CHEMISTRY METHOD 5 10:10 PM EDT [facility] Comment:Specimens from patie nts taking pantoprazole sodium (Protonix) have been shown to produce false positive results. Oxycodone Screen, Ur Negative Negative LAB CHEMISTRY METHOD 5 10:10 PM EDT [facility] Fentanyl, Ur Negative Negative LAB CHEMISTRY METHOD 10:10 PM EDT [facility] Urine Urine specimen obtained by clean catch procedure / Unknown Non-blood Collection / Unknown 03/03/2025 9:24 PM EDT 03/03/2025 9:41 PM EDT Narrative [facility] - 03/03/2025 10:10 PM EDT Assay cutoffs: Amphetamines ? 1000 ng/mL Barbiturates ?200 ng/mL Benzodiazepines ?? 200 ng/mL Cocaine ? 300 ng/mL Fentanyl ?1 ng/mL Opiates ? 300 ng/mL Oxycodone ? 100 ng/mL THC ?50 ng/mL Semi-quantitative assay for screening purposes only. Unconfirmed screening result should not be used for non-medical purposes. *ALTERNATE METHOD CONFIRMATION DONE UPON REQUEST ONLY* Gilmar Casarez MD LAB URINE ORDERABLES Final Resu lt Performing Organization Address [facility]/State/ZIP Co de Phone Number [facility] [address] [place] [address], * Buprenorphine screen, urine (03/03/2025 9:24 PM EDT) Buprenorphine Screen Urine Negative Negative LAB CHEMISTRY METHOD 03/03/2025 10:10 PM EDT [facility] Urine Urine specimen obtained by clean catch procedure / Unknown Non-blood Collection / Unknown 03/03/2025 9:24 PM EDT 03/03/2025 9:41 PM EDT Narrative [facility] - 03/03/2025 10:10 PM EDT Assay cutoff 5 ng/mL Semi-quantitative assay for screening purposes only. Unconfirmed screening result should not be used for non-medical purposes. *ALTERNATE METHOD CONFIRMATION DONE UPON REQUEST ONLY* us Gilmar Casarez MD LAB URINE ORDERABLES Final Resu lt Performing Organization Address [facility] [facility] de Phone Number [facility] [address] [place] [address], [place] [phone] * Methadone, urine (03/03/2025 9:24 PM EDT) Methadone Screen, Urine Negative Negative LAB CHEMISTRY METHOD 03/03/2025 10:10 PM EDT [facility] Comment: Assay cutoff 300 ng/mL Semi-quantitative assay for screening purposes only. Unconfirmed screening result should not be used for non-medical purposes. *ALTERNATE METHOD CONFIRMATION DONE UPON REQUEST ONLY* Urine Urine specimen obtained by clean catch procedure / Unknown Non-blood Collection / Unknown 03/03/2025 9:24 PM EDT 03/03/2025 9:41 PM EDT us Gilmar Casarez MD LAB URINE ORDERABLES Final Resu lt Performing Organization Address [facility] de Phone Number [facility] [address] [place] [address], [place] [phone] * Phencyclidine, urine (03/03/2025 9:24 PM EDT) PCP Scrn, Ur Negative Negative LAB CHEMISTRY METHOD 03/03/2025 10:10 PM EDT [facility] Comment: Assay cutoff 25 ng/mL Semi-quantitative assay for screening purposes only. Unconfirmed screening result should not be used for non-medical purposes. *ALTERNATE METHOD CONFIRMATION DONE UPON REQUEST ONLY* Urine Urine specimen obtained by clean catch procedure / Unknown Non-blood Collection / Unknown 03/03/2025 9:24 PM EDT 03/03/2025 9:41 PM EDT us Gilmar Casarez MD LAB URINE ORDERABLES Final Resu lt [facility] [address] [place] [address], [place] [phone] from Last 3 Months Insurance [facility] [employer] Advance Directives * Full Code - Default (Latest Code Status on File) Date Activated Date Inactivated Comments 03/04/2025 2:55 AM 03/06/2025 2:25 PM This is orde r is used when code status has not been discussed with the patient, or code status is otherwise unknown/unconfirmed To update the patient's code status, place a code status order. Do not modify or discontinue any currently active code status orders. * Full Code - Default Date Activated Date Inactivated Comments 03/04/2025 2:52 AM 03/04/2025 2:55 AM This is orde r is used when code status has not been discussed with the patient, or code status is otherwise unknown/unconfirmed To update the patient's code status, place a code status order. Do not modify or discontinue any currently active code status orders. Care Teams Quality Management Nurse Relationship Specialty Start Date End Date Physician, No Pcp PCP - General 11/25/24
--- OUTSIDE RECORDS SUMMARY | 2025-03-06 15:31 | XMS_ITS | Encounter Summary ---
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 Name Role Phone Physician, No Pcp Primary Care Provider Unavaila ble Reason for Referral * Social Care Application (Routine) - Authorized Specialty Diagnoses / Procedures Referred By Efrain lee Referred To Contact Metal Can Inspector Diagnoses Homeless Iman Tejeda DO [address] [place] [address] Phone: tel: fax: [facility] [address] [place] [address] Phone: tel: fax: Referral ID Status Reason Start Date Expiration Date Visits Requested Visits Authorized [id number] Authorized Specialty Services Required 03/04/2025 03/04/2026 1 1 Reason for Visit * Reason Comments Mental Health Problem Major depressive d isorder * Auth/Cert (Routine) Specialty Diagnoses / Procedures Referred By Efrain lee Referred To Contact Diagnoses Alcohol withdrawal seizure (CMS/HCC V24, CMS/HCC V28) Procedures [facility] IP/OBS CARE INITIAL MODERATE LEVEL PER DAY . Obdulio Bello MD [address] [place] [address] Phone: tel: fax: [facility] [address] [place] [address] Phone: tel: Referral ID Status Reason Start Date Expiration Date Visits Re quested Visits Authorized [id number] 1 1 Encounter Details Date Type Department Care Team (Latest Contact Info) Description 03/03/2025 8:33 PM EDT - 03/06/2025 12:20 PM EDT Hospital Encounter [facility] [address] [place] [id number] Gilmar Casarez MD [address] [place] [address] Jelena Cormier MD [address] [place] [address] Obdulio Bello MD [address] [place] [id number] Torrey Ely MD [address] [place] [address] Gianni Greer MD [address] [place] [id number] Suicidal ideation (Primary Dx); Alcohol use disorder; Alcohol withdrawal seizure with complication (CMS/HCC V24, CMS/HCC V28); Hypomagnesemia; Hypokalemia; Homeless Discharge Disposition: Short Term Hospital Social History Tobacco Use Types Packs/Day Years [...] care for your loved ones. For example, children's literature professor or elderly care for an older adult? [...] PM EST documented as of this encounter Last Filed Vital Signs Vital Sign Reading [...] Mass Index 26.63 03/03/2025 9:31 PM EDT documented in this encounter Functional Status * Are you [...] Date Author No 03/04/2025 2:38 AM Shante Quigley RN documented in this encounter Medications at Time of Discharge divalproex (DEPAKOTE) [address] tablet Take 1 tablet (500 mg total) by mouth every 12 (twelve) hours. Do not crush, chew, or split. 03/06/2025 folic acid (FOLVITE) 1 mg tablet Take 1 tablet (1 mg total) by mouth 1 (one) time each day. 03/07/2025 5 lidocaine 4 % patch Apply 1 patch topically 1 (one) time each day for 5 days. Apply to low back daily and remove at bedtime 03/06/2025 5 naltrexone (DEPADE) 50 mg tablet Take 1 tablet (50 mg total) by mouth 1 (one) time each day. 03/07/2025 5 sertraline (ZOLOFT) 25 mg tablet Take 1 tablet (25 mg total) by mouth at bedtime. 03/06/2025 5 thiamine (VITAMIN B-1) 100 mg tablet Take 1 tablet (100 mg total) by mouth 1 (one) time each day. 03/07/2025 5 Ventolin HFA 90 mcg/actuation inhaler Inhale 2 puffs by mouth every 2 (two) hours if needed for wheezing. 12/17/2024 documented as of this encounter Ordered Prescriptions Prescription Sig Dispense Quantity Refills Last Filled Start Date End Date lidocaine 4 % patch Apply 1 patch topically 1 (one) time each day for 5 days. Apply to low back daily and remove at bedtime 03/06/2025 5 thiamine (VITAMIN B-1) 100 mg tablet Take 1 tablet (100 mg total) by mouth 1 (one) time each day. 03/07/2025 5 sertraline (ZOLOFT) 25 mg tablet Take 1 tablet (25 mg total) by mouth at bedtime. 03/06/2025 5 naltrexone (DEPADE) 50 mg tablet Take 1 tablet (50 mg total) by mouth 1 (one) time each day. 03/07/2025 5 folic acid (FOLVITE) 1 mg tablet Take 1 tablet (1 mg total) by mouth 1 (one) time each day. 03/07/2025 5 divalproex (DEPAKOTE) [address] tablet Take 1 tablet (500 mg total) by mouth every 12 (twelve) hours. Do not crush, chew, or split. 03/06/2025 5 documented in this encounter Discharge Disposition Disposition Code Departure Means Destination Comment s Short Term Hospital documented in this encounter Progress Notes * MUKESH Hill - 03/06/2025 10:59 AM EDT Discharge: 03/06/25 1058 Transportation Transportation at discharge [facility] providing transportation Jeromy What day is the transport expected? 03/06/25 What time is the transport expected? 1200 Final Discharge Disposition Inpatient Behavioral Health ([facility]- M3) Sect 12 * Gina Mcknight - 03/06/2025 10:18 AM EDT Patient accepted to [facility], unit M[address] by Dr Arpan Duran, for today 03/06/25. ETA willbe determined during nurse to nurse. * Hayley Mccall MD - 03/06/2025 8:38 AM EDT Connected to patient's room via I-pad with help from benefits technician; assistance much appreciated. Patient consented verbally to visit via Telehealth video conferencing modality. Patient educated asto likely differences between Telehealth care and face to face care. Patient informed of the risks and benefits of using Telehealth services and procedures and likely risks and benefits of using alternatives to Telehealth services. Patient informed of the right to refuse Telehealth services at any time without jeopardizing his/her right to future care, services or benefits. Patient was informed that he/she is being seen solely by Hayley Mccall MD today via secure audio/visual connection in alocked virtual exam room. Persons present on patient's end: Patient Persons present on provider's end in [place]: Hayley Mccall MD CHART REVIEWED, PATIENT INTERVIEWED. CHIEF COMPLAINT: Depression, SI Time spent on encounter: 10 min (5 in face to face, 5 min in chart review and documentation) Billing: [facility] HISTORY OF PRESENT ILLNESS Unique Gian Ahuja is a 40 y.o. female with psychiatric history significant for depression and medical history significant for but not limited to asthma who was admitted with alcohol w/d symptoms and suicidal ideations. Psychiatry was consulted for evaluation of suicidal ideations. The patient states that she is feeling okay this morning. Her mood is still down, but she is not feeling as low as she was a few days ago. She continues to c/o L sided back pain and wonders if she tweaked a muscle when she had a seizure. She goes on to report that she has never had a seizure before, and that has been kind of a wake up call for her. She c/o CROSS today. She feels that her suicidal ideations are sti ll there, but they are not as frequent or as intense as previously. She denies any current suicidal plans or intent. REVIEW OF SYSTEMS CONSTITUTIONAL: The patient denies fevers, chills, sweats and body ache. HEENT: C/o CROSS at present. Denies blurry vision, eye pain, tinnitus, vertigo, gingival bleeding, sore throat, neck or thyroid masses. RESPIRATORY: Denies cough, sputum, hemoptysis. CARDIAC: Denies chest pain, pressure, palpitations, irregular heartbeats. Denies lower extremity edema. GASTROINTESTINAL: Denies abdominal pain, changes in bowel habits or any bleeding on toilet paper. GENITOURINARY: Denies dysuria, hematuria, nocturia or frequency. NEUROLOGIC: Denies dizziness, syncope. MUSCULOSKELETAL: C/o L sided back pain. VASCULAR: Denies claudication and cramping. ENDOCRINOLOGY: Denies heat or cold intolerance. HEMATOLOGY: Denies easy bleeding or blood transfusion. DERMATOLOGY: Denies changes in moles or pigmentation changes. Psychiatric ROS: Depression: See HPI. All: The patient denies elevated/expansive mood, decreased need for sleep, grandiosity, pressuredspeech, flight of ideas, distractibility, increase in goal directed activity, and hypersexuality. Psychosis: The patient denies audio or visual hallucinations, delusions, thought broadcasting, thought insertion, delusions of reference, catatonia, or disorganized speech or behavior. Anxiety: The patient denies any excessive worry, restlessness, fatigue, poor concentration, irritability, muscle tension, or anxiety-related sleep changes. Panic: The patient denies any recent panic episodes. PTSD: The patient does not endorse any current s/s related to PTSD. OCD: The patient denies intrusive thoughts, repetitive behaviors, counting, checking, washing, symmetry, or grouping and ordering that take up more than 1 hour of the day. Eating Disorder: The patient denies feeling overweight, excessive dieting or exercise to lose weight, overuse of laxatives, binging/purging behaviors, and amenorrhea. MEDICAL HISTORY Non-psychiatric medical history: Past Medical History: Diagnosis Date Asthma Current medications: divalproex, 500 mg, oral, q12h ELLIE enoxaparin, 40 mg, subcutaneous, q24h ELLIE folic acid, 1 mg, oral, Daily naltrexone, 50 mg, oral, Daily sertraline, 25 mg, oral, Nightly sodium chloride, 10 mL, intravenous, BID thiamine, 100 mg, oral, Daily ALLERGIES: Allergies Allergen Reactions Latex MSE: Appearance: AOx4. Appears stated age, well groomed. Pleasant and cooperative. Adequate eye contact.No psychomotor agitation or retardation. No evidence of EPS. Muscle tone/station: WNL. Orientation: To person, place, time, and situation. Attention and Concentration: No deficits in attention and concentration. Speech: Normal rate, rhythm, volume, and tone. Mood: I'm okay. Affect: Dysphoric with restricted range, mood congruent. No lability noted. Thought Process: Coherent, linear, logical, and goal-directed. No FOI or GAURAV. No thought blocking. Thought Content: SI, as above. Denies homicidal ideation. Denies auditory/visual hallucinations. Nodelusions. No paranoia. Perception/associations: Denies hallucinations, somatic complaints, or tactile disturbances Suicidal Ideations: SI without plan or intent, as above. Homicidal Ideations: Pt denies HI, intent, or plan. Low acute risk. No history of violence. No access to firearms. Behavior: No abnormal behavior during interview. Fund of Knowledge: Appropriate for age and level of education Intellect/Memory: Estimated as average based on interview. Immediate, recent, and remote memory is grossly intact. Language: No deficits Judgment/Insight: limited Musculoskeletal Exam: Movement: [x]normal []abnormal [-]dyskinesias [-]tremors [-]tics Station: [x]upright []hyperflexed/stooped []hyperextended Muscle strength [x]appears normal [-]appears abnormal Muscle tone: [x]normal [-]muscle rigidity LABS: Admission on 03/03/2025 Component Date Value Ref Range Status Sodium 03/03/2025 139 133 - 145 mmol/L Final Potassium 03/03/2025 3.1 (L) 3.5 - 5.5 mmol/L Final [place] 03/03/2025 105 96 - 110 mmol/L Final CO2 03/03/2025 29 21 - 32 mmol/L Final Anion Gap 03/03/2025 5 3 - 11 Final Glucose 03/03/2025 108 (H) 70 - 100 mg/dL Final BUN 03/03/2025 8 5 - 25 mg/dL Final Creatinine 03/03/2025 0.74 0.50 - 1.10 mg/dL Final eGFR 03/03/2025 105 >=60 mL/min/1.73m2 Final Calculation based on the Chronic Kidney Disease Epidemiology Collaboration (CKD- EPI) equation refitwithout adjustment for race. BUN/Creatinine Ratio 03/03/2025 10.8 Final Calcium 03/03/2025 9.3 8.5 - 10.5 mg/dL Final AST (SGOT) 03/03/2025 21 10 - 42 unit/L Final ALT (SGPT) 03/03/2025 16 10 - 60 unit/L Final Alkaline Phosphatase 03/03/2025 82 42 - 121 unit/L Final Total Protein 03/03/2025 7.1 6.0 - 8.0 g/dL Final Albumin 03/03/2025 3.6 3.2 - 5.0 g/dL Final Total Bilirubin 03/03/2025 0.4 0.0 - 1.4 mg/dL Final Ethanol Level 03/03/2025 <3 0 - 10 mg/dL Final Acetaminophen Level 03/03/2025 <2.0 (L) 10.0 - 30.0 mcg/mL Final Salicylate Level 03/03/2025 5.4 2.0 - 29.0 mg/dL Final Amphetamine Screen, Ur 03/03/2025 Negative Negative Final Certain OTC medications containing ephedrine, phenylephrine, pseudoephedrine and phenylpropanolamine can cause false positive results. Barbiturate Screen, Ur 03/03/2025 Negative Negative Final Benzodiazepine Screen, Ur 03/03/2025 Negative Negative Final Cocaine Screen, Ur 03/03/2025 Negative Negative Final Opiate Screen, Ur 03/03/2025 Negative Negative Final Cannabinoid (THC) Screen, Ur 03/03/2025 Positive (A) Negative Final Specimens from patients taking pantoprazole sodium (Protonix) have been shown to produce false positive results. Oxycodone Screen, Ur 03/03/2025 Negative Negative Final Fentanyl, Ur 03/03/2025 Negative Negative Final Buprenorphine Screen Urine 03/03/2025 Negative Negative Final PCP Scrn, Ur 03/03/2025 Negative Negative Final Assay cutoff 25 ng/mL Semi-quantitative assay for screening purposes only. Unconfirmed screening result should not be used for non-medical purposes. *ALTERNATE METHOD CONFIRMATION DONE UPON REQUEST ONLY* Methadone Screen, Urine 03/03/2025 Negative Negative Final Assay cutoff 300 ng/mL Semi-quantitative assay for screening purposes only. Unconfirmed screening result should not be used for non-medical purposes. *ALTERNATE METHOD CONFIRMATION DONE UPON REQUEST ONLY* WBC 03/03/2025 3.9 (L) 4.8 - 10.8 K/mcL Final RBC 03/03/2025 3.50 (L) 3.80 - 4.80 M/mcL Final Hemoglobin 03/03/2025 10.7 (L) 11.5 - 16.0 g/dL Final Hematocrit 03/03/2025 33.1 (L) 35.0 - 47.0 % Final MCV 03/03/2025 93.8 79.0 - 98.0 FL Final MCH 03/03/2025 30.3 27.0 - 32.0 pcg Final MCHC 03/03/2025 32.3 32.0 - 37.0 g/dL Final RDW 03/03/2025 14.0 11.0 - 15.0 % Final Platelets 03/03/2025 204 130 - 400 K/mcL Final MPV 03/03/2025 10.8 7.0 - 11.0 FL Final NRBC 03/03/2025 0.0 <1.0 % Final NRBC Absolute 03/03/2025 0.00 <0.10 K/mcL Final Neutrophils Relative 03/03/2025 33.1 % Final Lymphocytes Relative 03/03/2025 55.9 % Final Monocytes Relative 03/03/2025 7.9 % Final Eosinophils Relative 03/03/2025 2.6 % Final Basophils Relative 03/03/2025 0.5 % Final Immature Granulocytes Relative 03/03/2025 0.0 % Final Neutrophils Absolute 03/03/2025 1.29 (L) 1.50 - 7.00 K/mcL Final Lymphocytes Absolute 03/03/2025 2.18 1.00 - 5.00 K/mcL Final Monocytes Absolute 03/03/2025 0.31 0.20 - 1.00 K/mcL Final Eosinophils Absolute 03/03/2025 0.10 0.00 - 0.50 K/mcL Final Basophils Absolute 03/03/2025 0.02 0.00 - 0.20 K/mcL Final Immature Granulocytes Absolute 03/03/2025 0.00 0.00 - 0.03 K/mcL Final Extra Tube 03/03/2025 Hold for add-ons. Final Auto resulted. Glucose POCT 03/04/2025 165 (H) 70 - 100 mg/dL Final POCT Comment 03/04/2025 RN Notified Final Magnesium 03/03/2025 1.7 (L) 1.9 - 2.6 mg/dL Final Ventricular Rate ECG 03/04/2025 72 BPM Final Atrial Rate 03/04/2025 72 BPM Final P-R Interval 03/04/2025 158 ms Final QRS Duration 03/04/2025 102 ms Final Q-T Interval 03/04/2025 386 ms Final QTc 03/04/2025 422 ms Final P Wave [place] 03/04/2025 21 degrees Final R [place] 03/04/2025 58 degrees Final T [place] 03/04/2025 57 degrees Final ECG Interpretation 03/04/2025 Final Value:Normal sinus rhythm No previous ECGs available Confirmed by CHUN LOVELL ([id number]) on 03/04/2025 6:16:19 PM Sodium 03/04/2025 137 133 - 145 mmol/L Final Potassium 03/04/2025 3.8 3.5 - 5.5 mmol/L Final [place] 03/04/2025 106 96 - 110 mmol/L Final CO2 03/04/2025 27 21 - 32 mmol/L Final Anion Gap 03/04/2025 4 3 - 11 Final Glucose 03/04/2025 98 70 - 100 mg/dL Final BUN 03/04/2025 5 5 - 25 mg/dL Final Creatinine 03/04/2025 0.65 0.50 - 1.10 mg/dL Final eGFR 03/04/2025 114 >=60 mL/min/1.73m2 Final Calculation based on the Chronic Kidney Disease Epidemiology Collaboration (CKD- EPI) equation refitwithout adjustment for race. BUN/Creatinine Ratio 03/04/2025 7.7 Final Calcium 03/04/2025 8.6 8.5 - 10.5 mg/dL Final WBC 03/04/2025 4.3 (L) 4.8 - 10.8 K/mcL Final RBC 03/04/2025 3.60 (L) 3.80 - 4.80 M/mcL Final Hemoglobin 03/04/2025 10.7 (L) 11.5 - 16.0 g/dL Final Hematocrit 03/04/2025 33.8 (L) 35.0 - 47.0 % Final MCV 03/04/2025 94.7 79.0 - 98.0 FL Final MCH 03/04/2025 30.0 27.0 - 32.0 pcg Final MCHC 03/04/2025 31.7 (L) 32.0 - 37.0 g/dL Final RDW 03/04/2025 13.8 11.0 - 15.0 % Final Platelets 03/04/2025 191 130 - 400 K/mcL Final MPV 03/04/2025 10.6 7.0 - 11.0 FL Final NRBC 03/04/2025 0.0 <1.0 % Final NRBC Absolute 03/04/2025 0.00 <0.10 K/mcL Final Neutrophils Relative 03/04/2025 51.4 % Final Lymphocytes Relative 03/04/2025 37.1 % Final Monocytes Relative 03/04/2025 7.5 % Final Eosinophils Relative 03/04/2025 3.3 % Final Basophils Relative 03/04/2025 0.5 % Final Immature Granulocytes Relative 03/04/2025 0.2 % Final Neutrophils Absolute 03/04/2025 2.20 1.50 - 7.00 K/mcL Final Lymphocytes Absolute 03/04/2025 1.59 1.00 - 5.00 K/mcL Final Monocytes Absolute 03/04/2025 0.32 0.20 - 1.00 K/mcL Final Eosinophils Absolute 03/04/2025 0.14 0.00 - 0.50 K/mcL Final Basophils Absolute 03/04/2025 0.02 0.00 - 0.20 K/mcL Final Immature Granulocytes Absolute 03/04/2025 0.01 0.00 - 0.03 K/mcL Final hCG Qual 03/03/2025 Negative Negative Final Magnesium 03/04/2025 2.3 1.9 - 2.6 mg/dL Final Sodium 03/05/2025 139 133 - 145 mmol/L Final Potassium 03/05/2025 3.5 3.5 - 5.5 mmol/L Final [place] 03/05/2025 106 96 - 110 mmol/L Final CO2 03/05/2025 26 21 - 32 mmol/L Final Anion Gap 03/05/2025 7 3 - 11 Final Glucose 03/05/2025 89 70 - 100 mg/dL Final BUN 03/05/2025 4 (L) 5 - 25 mg/dL Final Creatinine 03/05/2025 0.64 0.50 - 1.10 mg/dL Final eGFR 03/05/2025 115 >=60 mL/min/1.73m2 Final Calculation based on the Chronic Kidney Disease Epidemiology Collaboration (CKD- EPI) equation refitwithout adjustment for race. BUN/Creatinine Ratio 03/05/2025 6.3 Final Calcium 03/05/2025 9.3 8.5 - 10.5 mg/dL Final Phosphorus 03/05/2025 3.2 2.5 - 4.5 mg/dL Final WBC 03/05/2025 4.0 (L) 4.8 - 10.8 K/mcL Final RBC 03/05/2025 3.70 (L) 3.80 - 4.80 M/mcL Final Hemoglobin 03/05/2025 11.1 (L) 11.5 - 16.0 g/dL Final Hematocrit 03/05/2025 34.3 (L) 35.0 - 47.0 % Final MCV 03/05/2025 93.5 79.0 - 98.0 FL Final MCH 03/05/2025 30.2 27.0 - 32.0 pcg Final MCHC 03/05/2025 32.4 32.0 - 37.0 g/dL Final RDW 03/05/2025 13.5 11.0 - 15.0 % Final Platelets 03/05/2025 197 130 - 400 K/mcL Final MPV 03/05/2025 11.0 7.0 - 11.0 FL Final NRBC 03/05/2025 0.0 <1.0 % Final NRBC Absolute 03/05/2025 0.00 <0.10 K/mcL Final Neutrophils Relative 03/05/2025 31.3 % Final Lymphocytes Relative 03/05/2025 55.1 % Final Monocytes Relative 03/05/2025 8.0 % Final Eosinophils Relative 03/05/2025 4.7 % Final Basophils Relative 03/05/2025 0.7 % Final Immature Granulocytes Relative 03/05/2025 0.2 % Final Neutrophils Absolute 03/05/2025 1.25 (L) 1.50 - 7.00 K/mcL Final Lymphocytes Absolute 03/05/2025 2.21 1.00 - 5.00 K/mcL Final Monocytes Absolute 03/05/2025 0.32 0.20 - 1.00 K/mcL Final Eosinophils Absolute 03/05/2025 0.19 0.00 - 0.50 K/mcL Final Basophils Absolute 03/05/2025 0.03 0.00 - 0.20 K/mcL Final Immature Granulocytes Absolute 03/05/2025 0.01 0.00 - 0.03 K/mcL Final VITALS: BP: 135/74 (03/06 352) Heart Rate: 71 (03/06 352) Heart Rate Source: Brachial (03/04 412) Temp: 36.7 ??C (98.1 ??F) (03/06 352) Temp Source: Oral (03/06 352) SpO2: 100 % (03/06 352) O2 Flow Rate (L/min): 2 L/min (03/04 412) O2 Delivery Method: Other (Comment) (03/04 2033) ASSESSMENT: Celina Ahuja is a 40 y.o. female with psychiatric history significant for depression and medical history significant for but not limited to asthma who was admitted with alcohol w/d symptoms and suicidal ideations. Psychiatry was consulted for evaluation of suicidal ideations. DSM-5 DIAGNOSIS: Suicidal ideations MDD, recurrent, severe, without psychotic features Alcohol use disorder Alcohol w/d symptoms Cannabis use disorder Asthma Admitted with alcohol w/d symptoms and suicidal ideations TREATMENT PLAN: Pt has verbalized understanding and given consent/agreement with medications and plan offered. LEVEL OF CARE: Continue current level of treatment. RECOMMENDATIONS: Continue Zoloft 25 mg PO qHS for depression. Discussed/Reviewed mechanism of action of SSRIs, expected benefits and time to response, common SEs including GI, CROSS, drowsiness or activation, sexual SEs, and more rare but serious adverse effects including agitation, all, suicidal thoughts and behaviors. Of note, the patient continues to meet criteria for Section 12 given recent suicide attempt. She cannot leave AMA. Continue sitter for safety at present. The patient was seen by a copy center specialist; psychiatric bed search is underway. Medication Education: Risks, benefits, alternatives, and potential side effects were discussed withthe patient. Patient voiced understanding and agreed with medication regimen described above. LABS: Reviewed and discussed most recent labs results. MEDICATION CONTRACT: Patient agreed to take medication only as prescribed and acknowledges that services may be terminated if prescription abuse is observed. SAFETY PLAN: Patient is to alert team if symptoms worsen. Team will monitor for development of suicidal ideations or an acute medication reaction. - Call 911 or present to nearest Emergency Room in case of crisis / suicidal thoughts upon discharge. EDUCATION/CONSENT: Discussed and explained all diagnoses including differential diagnosis and treatment options. Discussed risks, benefits, potential side effects, contraindications, potential drug-drug interactions, alternatives to current medications and medication allergies as noted above. Discussed continuing to monitor for side effects and treatment efficacy prospectively and delineated patient's involvement and responsibility in monitoring for side effects and efficacy. Christian infante expressed understanding of these recommendations. BARRIERS TO LEARNING: Patient demonstrates a readiness to learn. Patient verbalizes understanding and agrees to plan. No barriers to communication noted. MEDICATION RECONCILIATION: Medications were reviewed and reconciled with the patient. PREVENTATIVE RECOMMENDATIONS: Preventative Health Education Counseling: discussed proper diet/nutrition, exercise, and sleep hygiene. The patient was encouraged to avoid nicotine, alcohol and illicitdrugs at all times. The patient was made aware that records from the u/s can be sent to his/her PCP at any time that he/she requests. * Alayna West RN - 03/06/2025 6:52 AM EDT Problem: Suicidal Thought/Behavior Goal: LTG: Risk of self-harm and suicidal thought/behaviors will be negligible Outcome: Progressing Goal: Patient will identify precipitants, context, and plan for suicidal thought/behavior Outcome: Progressing Goal: Patient will demonstrate awareness and verbalize warning signs that suicidal thought/behavioris exacerbating Outcome: Progressing Goal: Patient will demonstrate elimination of suicidal thought/behavior Outcome: Progressing Goal: Patient will demonstrate acceptance, knowledge and adherence for any prescribed medication treatment program for suicidal thought/behavior Outcome: Progressing Goal: Patient will verbalize a plan of action to be taken should suicidal thought/behavior exacerbate Outcome: Progressing Goal: Patient will verbalize at least two reasons for living Outcome: Progressing Goal: Patient will demonstrate commitment to behavioral therapeutic plan not to harm onself Outcome: Progressing Goals: Identify possible barriers to meeting goals/advancing plan of care: section 12 Stability of the patient: Moderately Stable - Low risk of patient condition declining or worsening End of Shift Summary: Pt is A &O X4, VSS, 1:1 sitter at bedside. No issue overnight. * MUKESH Hill - 03/05/2025 3:56 PM EDT Metal Can Inspector- CM Progress Note Patient continues to require acute level hospital care. DARRON: 03/06 Barriers: Sect 12 Disposition: Inpt Psych Attending stated patient is medically cleared. This quality analyst/technical writer notified behavioral health team Gina [phone]. Await evaluation. director of cloud services will remain available to assess, support, provide advocacy and assist with discharge planning as appropriate. * Iman Tejeda DO - 03/05/2025 10:29 AM EDT Images from the original note were not included. Celina Ahuja 1985 [id number] Author: Iman Tejeda DO DOS: 03/05/2025 Requesting Service: Hospitalist Service Chief Complaint: Alcohol withdrawal seizure (CMS/[facility] V24, CMS/[facility] V28) Reason for Consultation: Alcohol use disorder Source of History: Patient and chart Subjective History of Present Illness: Celina Ahuja is a 40 y.o. female with a history of alcohol use disorder admitted following a seizure and suicide ideation. patient states she is feeling better this morning. She complains of headache. She denies nausea, vomiting or shakiness. She reports she is interested in further treatment.She expresses frustration with her prior living environment with her cousin. Allergies: Allergies Allergen Reactions Latex Home Medications: Prior to Admission medications Medication Sig Start Date End Date Taking? Authorizing Provider Ventolin HFA 90 mcg/actuation inhaler Inhale 2 puffs by mouth every 2 (two) hours if needed for wheezing. 12/17/24 Yes Historical Provider, cloNIDine (CATAPRES) 0.1 mg tablet Take 1 tablet (0.1 mg total) by mouth 1 (one) time each day. 11/21/24 03/04/25 Yes Historical Provider, hydrOXYzine HCL (ATARAX) 25 mg tablet Take 1 tablet (25 mg total) by mouth every 6 (six) hours if needed for anxiety. 11/21/24 03/04/25 Yes Historical Provider, hydrOXYzine pamoate (VISTARIL) 50 mg capsule Take 1 capsule (50 mg total) by mouth every 4 (four) hours if needed for anxiety. 12/17/24 03/04/25 Yes Historical Provider, melatonin 3 mg tablet Take 2 tablets (6 mg total) by mouth at bedtime as needed. 12/17/24 03/04/25 Yes Historical Provider, mirtazapine (REMERON) 30 mg tablet Take 1 tablet (30 mg total) by mouth at bedtime. at bedtime. 12/17/24 03/04/25 Yes Historical Provider, naltrexone (DEPADE) 50 mg tablet Take 1 tablet (50 mg total) by mouth 1 (one) time each day. Yes Historical Provider, OLANZapine (ZyPREXA) 5 mg tablet Take 1 tablet (5 mg total) by mouth 2 (two) times a day. 12/17/24 03/04/25 Yes Historical Provider, Past Medical History: Past Medical History: Diagnosis Date Asthma Past Surgical History: History reviewed. No pertinent surgical history. Family History: Family History Problem Relation Name Age of Onset Diabetes Mother Hypertension Mother Diabetes Father Hypertension Father Social History: Social History Tobacco Use Smoking Status Never Smokeless Tobacco Never Social History Substance and Sexual Activity Alcohol Use Yes Comment: 1 pint liquor daily Social History Substance and Sexual Activity Drug Use Yes Types: Marijuana/Cannabis Objective ROS: as above Last Recorded Vitals: Blood pressure (!) 142/85, pulse 67, temperature 36.3 ??C (97.4 ??F), temperature source Temporal, resp. rate 16, height 1.676 m (66 ), weight 74.8 kg (165 lb), SpO2 92%. Physical Exam Gen: NAD HEENT: pupils normal, OP clear CV: RRR Pulm: CTA Skin: No rashes or lesions Neuro: Alert and oriented, No tremor Pysch: Mood and affect normal Labs: Lab Results Component Value Date GLUCOSE 89 03/05/2025 CALCIUM 9.3 03/05/2025 NA 139 03/05/2025 K 3.5 03/05/2025 CO2 26 03/05/2025 CL 106 03/05/2025 BUN 4 (L) 03/05/2025 CREATININE 0.64 03/05/2025 Lab Results Component Value Date WBC 4.0 (L) 03/05/2025 HGB 11.1 (L) 03/05/2025 HCT 34.3 (L) 03/05/2025 MCV 93.5 03/05/2025 PLT 197 03/05/2025 Imaging: Routine EEG This is a 16 channel EEG with an EKG lead. Patient is reported awake and drowsy during the tracing. Background EEG rhythm is 10 to 12 Hz 5 to 70 ??V posteriorly lower amplitude faster anteriorly. Patient transition in and out of drowsiness. Intermittently left temporal sharp and slow waves were noted. Cardiac lead did not reveal any significant abnormality. Photic stimulation did not produce any significant driving. Hyperventilation was not performed. Impression: Mildly abnormal EEG suggestive of left temporal irritability that could result in partial or complex partial seizures. CT Head wo Contrast Narrative: INDICATION: Seizure, nontraumatic (Age 18-40y) CT head without contrast Comparison: None Findings: No intra-axial mass, midline shift, hydrocephalus, or acute hemorrhage. No significant atrophy-like change or white matter disease. There is no sinus or mastoid fluid. The orbits are unremarkable. There is no acute fracture. Impression: 1. No acute intracranial findings by noncontrast CT. Consider further assessment with MRI if clinically warranted. This document has been electronically signed by: William Starkey MD on 03/04/2025 05:29:18 Meds: enoxaparin, 40 mg, subcutaneous, q24h ELLIE folic acid, 1 mg, oral, Daily sertraline, 25 mg, oral, Nightly sodium chloride, 10 mL, intravenous, BID thiamine, 100 mg, oral, Daily PRN medications: acetaminophen, chlordiazePOXIDE OR chlordiazePOXIDE OR chlordiazePOXIDE, ondansetron (ZOFRAN-ODT) disintegrating tablet OR ondansetron, Insert peripheral IV AND Maintain IV access AND Saline lock IV AND sodium chloride AND sodium chloride Assessment and Plan Unique Gian Ahuja is a 40 y.o. female with a history of alcohol use disorder admitted with suicide ideation in the setting of alcohol withdrawal. Alcohol Use Disorder With complicated withdrawal seizure requiring IV lorazepam Continue CIWA-Ar monitoring with prn chlordiazepoxide Continue thiamine, folate and multivitamin. Replete electrolytes. Discussed treatment of alcohol use disorder and reviewed medications for alcohol use disorder (LALO)-patient expressed interest in oral naltrexone with possible transition to injectable form. Discussed risks/benefits and possoble side effects including nausea, GI upset and fatigue. Patient expressed understanding. 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 Thank you for the interesting consultation. Please reach out with any questions or concerns. Principal Problem: Alcohol withdrawal seizure (CMS/[facility] V24, CMS/[facility] V28) Provider Attestation * Eros Marques - 03/05/2025 10:05 AM EDT Images from the original note were not included. Physics And Astronomy Professor Note Celina Ahuja 1985 [id number] Author: Eros Marques DOS: 03/05/2025 Celina Ahuja is a 40 y.o. female with a history of EtOH misuse. I visited with Ms. Ahuja again this morning to see if she had made any decisions about recovery support services. She stated that she would try going to a [facility]. I am sending her referrals out todayusing the [facility] list and will instruct her on how to follow up and stay on any wait lists if she discharges from [facility] prior to admission to a [facility]. Referrals: [facility] Harm Reduction: None required at this time SIGNATURES: Eros Marques - Certified Physics And Astronomy Professor * Eunice Savage RN - 03/05/2025 9:07 AM EDT Problem: Substance Use, Misuse: Substance Abuse (Adult IP BH) Goal: (Goal) Acknowledge abuse of alcohol and or substances and state the rationale for treatment. Outcome: Progressing Goal: Patient will discuss use of alcohol or substances. Outcome: Progressing Goal: Patient will take medications as prescribed. Outcome: Progressing Goal: Patient will list ways of identifying and managing symptoms. Outcome: Progressing Goal: Patient will identify resources for success in the community. Outcome: Progressing Goals: Identify possible barriers to meeting goals/advancing plan of care: Section 12. Stability of the patient: Moderately Stable - Low risk of patient condition declining or worsening End of Shift Summary: will continue to monitor. * Hayley Mccall MD - 03/05/2025 8:36 AM EDT Connected to patient's room via I-pad with help from benefits technician; assistance much appreciated. Patient consented verbally to visit via Telehealth video conferencing modality. Patient educated asto likely differences between Telehealth care and face to face care. Patient informed of the risks and benefits of using Telehealth services and procedures and likely risks and benefits of using alternatives to Telehealth services. Patient informed of the right to refuse Telehealth services at any time without jeopardizing his/her right to future care, services or benefits. Patient was informed that he/she is being seen solely by Hayley Mccall MD today via secure audio/visual connection in alocked virtual exam room. Persons present on patient's end: Patient, sitter Persons present on provider's end in [place]: Hayley Mccall MD CHART REVIEWED, PATIENT INTERVIEWED. CHIEF COMPLAINT: Suicidal ideations Time spent on encounter: 10 min (5 min face to face, 5 min in chart review and documentation) Billing: [facility] HISTORY OF PRESENT ILLNESS Unique Gian Ahuja is a 40 y.o. female with psychiatric history significant for depression and medical history significant for but not limited to asthma who was admitted with alcohol w/d symptoms and suicidal ideations. Psychiatry was consulted for evaluation of suicidal ideations. The patient states that she is trying to be okay. She c/o severe back pain on the left side that is new and is bothering her. She tolerated the start of Zoloft without any difficulties. She reports that her mood is still pretty low and she is feeling depleted. She doesn't have suicidal thoughts at the moment, but she just woke up. She hasn't talked with her kids yet and is hoping to get to do that today. REVIEW OF SYSTEMS CONSTITUTIONAL: The patient denies fevers, chills, sweats and body ache. HEENT: Denies CROSS, blurry vision, eye pain, tinnitus, vertigo, gingival bleeding, sore throat, neck or thyroid masses. RESPIRATORY: Denies cough, sputum, hemoptysis. CARDIAC: Denies chest pain, pressure, palpitations, irregular heartbeats. Denies lower extremity edema. GASTROINTESTINAL: Denies abdominal pain, changes in bowel habits or any bleeding on toilet paper. GENITOURINARY: Denies dysuria, hematuria, nocturia or frequency. NEUROLOGIC: Denies headaches, dizziness, syncope. MUSCULOSKELETAL: C/o left-sided back pain. VASCULAR: Denies claudication and cramping. ENDOCRINOLOGY: Denies heat or cold intolerance. HEMATOLOGY: Denies easy bleeding or blood transfusion. DERMATOLOGY: Denies changes in moles or pigmentation changes. Psychiatric ROS: Depression: See HPI. All: The patient denies elevated/expansive mood, decreased need for sleep, grandiosity, pressuredspeech, flight of ideas, distractibility, increase in goal directed activity, and hypersexuality. Psychosis: The patient denies audio or visual hallucinations, delusions, thought broadcasting, thought insertion, delusions of reference, catatonia, or disorganized speech or behavior. Anxiety: The patient denies any excessive worry, restlessness, fatigue, poor concentration, irritability, muscle tension, or anxiety-related sleep changes. Panic: The patient denies any recent panic episodes. PTSD: The patient does not endorse any current s/s related to PTSD. OCD: The patient denies intrusive thoughts, repetitive behaviors, counting, checking, washing, symmetry, or grouping and ordering that take up more than 1 hour of the day. Eating Disorder: The patient denies feeling overweight, excessive dieting or exercise to lose weight, overuse of laxatives, binging/purging behaviors, and amenorrhea. MEDICAL HISTORY Non-psychiatric medical history: Past Medical History: Diagnosis Date Asthma Current medications: enoxaparin, 40 mg, subcutaneous, q24h ELLIE folic acid, 1 mg, oral, Daily sertraline, 25 mg, oral, Nightly sodium chloride, 10 mL, intravenous, BID thiamine, 100 mg, oral, Daily ALLERGIES: Allergies Allergen Reactions Latex MSE: Appearance: AOx4. Appears stated age, well groomed. Pleasant and cooperative. Adequate eye contact.No psychomotor agitation or retardation. No evidence of EPS. Muscle tone/station: WNL. Orientation: To person, place, time, and situation. Attention and Concentration: No deficits in attention and concentration. Speech: Normal rate, rhythm, volume, and tone. Mood: About the same. Affect: Dysphoric with restricted range, mood congruent. No lability noted. Thought Process: Coherent, linear, logical, and goal-directed. No FOI or GAURAV. No thought blocking. Thought Content: Denies suicidal/homicidal ideation. Denies auditory/visual hallucinations. No delusions. No paranoia. Perception/associations: Denies hallucinations, somatic complaints, or tactile disturbances Suicidal Ideations: Denies SI at present. Homicidal Ideations: Pt denies HI, intent, or plan. Low acute risk. No history of violence. No access to firearms. Behavior: No abnormal behavior during interview. Fund of Knowledge: Appropriate for age and level of education Intellect/Memory: Estimated as average based on interview. Immediate, recent, and remote memory is grossly intact. Language: No deficits Judgment/Insight: limited Musculoskeletal Exam: Movement: [x]normal []abnormal [-]dyskinesias [-]tremors [-]tics Station: [x]upright []hyperflexed/stooped []hyperextended Muscle strength [x]appears normal [-]appears abnormal Muscle tone: [x]normal [-]muscle rigidity LABS: Admission on 03/03/2025 Component Date Value Ref Range Status Sodium 03/03/2025 139 133 - 145 mmol/L Final Potassium 03/03/2025 3.1 (L) 3.5 - 5.5 mmol/L Final Chloride 03/03/2025 105 96 - 110 mmol/L Final CO2 03/03/2025 29 21 - 32 mmol/L Final Anion Gap 03/03/2025 5 3 - 11 Final Glucose 03/03/2025 108 (H) 70 - 100 mg/dL Final BUN 03/03/2025 8 5 - 25 mg/dL Final Creatinine 03/03/2025 0.74 0.50 - 1.10 mg/dL Final eGFR 03/03/2025 105 >=60 mL/min/1.73m2 Final Calculation based on the Chronic Kidney Disease Epidemiology Collaboration (CKD- EPI) equation refitwithout adjustment for race. BUN/Creatinine Ratio 03/03/2025 10.8 Final Calcium 03/03/2025 9.3 8.5 - 10.5 mg/dL Final AST (SGOT) 03/03/2025 21 10 - 42 unit/L Final ALT (SGPT) 03/03/2025 16 10 - 60 unit/L Final Alkaline Phosphatase 03/03/2025 82 42 - 121 unit/L Final Total Protein 03/03/2025 7.1 6.0 - 8.0 g/dL Final Albumin 03/03/2025 3.6 3.2 - 5.0 g/dL Final Total Bilirubin 03/03/2025 0.4 0.0 - 1.4 mg/dL Final Ethanol Level 03/03/2025 <3 0 - 10 mg/dL Final Acetaminophen Level 03/03/2025 <2.0 (L) 10.0 - 30.0 mcg/mL Final Salicylate Level 03/03/2025 5.4 2.0 - 29.0 mg/dL Final Amphetamine Screen, Ur 03/03/2025 Negative Negative Final Certain OTC medications containing ephedrine, phenylephrine, pseudoephedrine and phenylpropanolamine can cause false positive results. Barbiturate Screen, Ur 03/03/2025 Negative Negative Final Benzodiazepine Screen, Ur 03/03/2025 Negative Negative Final Cocaine Screen, Ur 03/03/2025 Negative Negative Final Opiate Screen, Ur 03/03/2025 Negative Negative Final Cannabinoid (THC) Screen, Ur 03/03/2025 Positive (A) Negative Final Specimens from patients taking pantoprazole sodium (Protonix) have been shown to produce false positive results. Oxycodone Screen, Ur 03/03/2025 Negative Negative Final Fentanyl, Ur 03/03/2025 Negative Negative Final Buprenorphine Screen Urine 03/03/2025 Negative Negative Final PCP Scrn, Ur 03/03/2025 Negative Negative Final Assay cutoff 25 ng/mL Semi-quantitative assay for screening purposes only. Unconfirmed screening result should not be used for non-medical purposes. *ALTERNATE METHOD CONFIRMATION DONE UPON REQUEST ONLY* Methadone Screen, Urine 03/03/2025 Negative Negative Final Assay cutoff 300 ng/mL Semi-quantitative assay for screening purposes only. Unconfirmed screening result should not be used for non-medical purposes. *ALTERNATE METHOD CONFIRMATION DONE UPON REQUEST ONLY* WBC 03/03/2025 3.9 (L) 4.8 - 10.8 K/mcL Final RBC 03/03/2025 3.50 (L) 3.80 - 4.80 M/mcL Final Hemoglobin 03/03/2025 10.7 (L) 11.5 - 16.0 g/dL Final Hematocrit 03/03/2025 33.1 (L) 35.0 - 47.0 % Final MCV 03/03/2025 93.8 79.0 - 98.0 FL Final MCH 03/03/2025 30.3 27.0 - 32.0 pcg Final MCHC 03/03/2025 32.3 32.0 - 37.0 g/dL Final RDW 03/03/2025 14.0 11.0 - 15.0 % Final Platelets 03/03/2025 204 130 - 400 K/mcL Final MPV 03/03/2025 10.8 7.0 - 11.0 FL Final NRBC 03/03/2025 0.0 <1.0 % Final NRBC Absolute 03/03/2025 0.00 <0.10 K/mcL Final Neutrophils Relative 03/03/2025 33.1 % Final Lymphocytes Relative 03/03/2025 55.9 % Final Monocytes Relative 03/03/2025 7.9 % Final Eosinophils Relative 03/03/2025 2.6 % Final Basophils Relative 03/03/2025 0.5 % Final Immature Granulocytes Relative 03/03/2025 0.0 % Final Neutrophils Absolute 03/03/2025 1.29 (L) 1.50 - 7.00 K/mcL Final Lymphocytes Absolute 03/03/2025 2.18 1.00 - 5.00 K/mcL Final Monocytes Absolute 03/03/2025 0.31 0.20 - 1.00 K/mcL Final Eosinophils Absolute 03/03/2025 0.10 0.00 - 0.50 K/mcL Final Basophils Absolute 03/03/2025 0.02 0.00 - 0.20 K/mcL Final Immature Granulocytes Absolute 03/03/2025 0.00 0.00 - 0.03 K/mcL Final Extra Tube 03/03/2025 Hold for add-ons. Final Auto resulted. Glucose POCT 03/04/2025 165 (H) 70 - 100 mg/dL Final POCT Comment 03/04/2025 RN Notified Final Magnesium 03/03/2025 1.7 (L) 1.9 - 2.6 mg/dL Final Ventricular Rate ECG 03/04/2025 72 BPM Final Atrial Rate 03/04/2025 72 BPM Final P-R Interval 03/04/2025 158 ms Final QRS Duration 03/04/2025 102 ms Final Q-T Interval 03/04/2025 386 ms Final QTc 03/04/2025 422 ms Final P Wave [place] 03/04/2025 21 degrees Final R [place] 03/04/2025 58 degrees Final T [place] 03/04/2025 57 degrees Final ECG Interpretation 03/04/2025 Final Value:Normal sinus rhythm No previous ECGs available Confirmed by CHUN LOVELL ([id number]) on 03/04/2025 6:16:19 PM Sodium 03/04/2025 137 133 - 145 mmol/L Final Potassium 03/04/2025 3.8 3.5 - 5.5 mmol/L Final Chloride 03/04/2025 106 96 - 110 mmol/L Final CO2 03/04/2025 27 21 - 32 mmol/L Final Anion Gap 03/04/2025 4 3 - 11 Final Glucose 03/04/2025 98 70 - 100 mg/dL Final BUN 03/04/2025 5 5 - 25 mg/dL Final Creatinine 03/04/2025 0.65 0.50 - 1.10 mg/dL Final eGFR 03/04/2025 114 >=60 mL/min/1.73m2 Final Calculation based on the Chronic Kidney Disease Epidemiology Collaboration (CKD- EPI) equation refitwithout adjustment for race. BUN/Creatinine Ratio 03/04/2025 7.7 Final Calcium 03/04/2025 8.6 8.5 - 10.5 mg/dL Final WBC 03/04/2025 4.3 (L) 4.8 - 10.8 K/mcL Final RBC 03/04/2025 3.60 (L) 3.80 - 4.80 M/mcL Final Hemoglobin 03/04/2025 10.7 (L) 11.5 - 16.0 g/dL Final Hematocrit 03/04/2025 33.8 (L) 35.0 - 47.0 % Final MCV 03/04/2025 94.7 79.0 - 98.0 FL Final MCH 03/04/2025 30.0 27.0 - 32.0 pcg Final MCHC 03/04/2025 31.7 (L) 32.0 - 37.0 g/dL Final RDW 03/04/2025 13.8 11.0 - 15.0 % Final Platelets 03/04/2025 191 130 - 400 K/mcL Final MPV 03/04/2025 10.6 7.0 - 11.0 FL Final NRBC 03/04/2025 0.0 <1.0 % Final NRBC Absolute 03/04/2025 0.00 <0.10 K/mcL Final Neutrophils Relative 03/04/2025 51.4 % Final Lymphocytes Relative 03/04/2025 37.1 % Final Monocytes Relative 03/04/2025 7.5 % Final Eosinophils Relative 03/04/2025 3.3 % Final Basophils Relative 03/04/2025 0.5 % Final Immature Granulocytes Relative 03/04/2025 0.2 % Final Neutrophils Absolute 03/04/2025 2.20 1.50 - 7.00 K/mcL Final Lymphocytes Absolute 03/04/2025 1.59 1.00 - 5.00 K/mcL Final Monocytes Absolute 03/04/2025 0.32 0.20 - 1.00 K/mcL Final Eosinophils Absolute 03/04/2025 0.14 0.00 - 0.50 K/mcL Final Basophils Absolute 03/04/2025 0.02 0.00 - 0.20 K/mcL Final Immature Granulocytes Absolute 03/04/2025 0.01 0.00 - 0.03 K/mcL Final hCG Qual 03/03/2025 Negative Negative Final Magnesium 03/04/2025 2.3 1.9 - 2.6 mg/dL Final Sodium 03/05/2025 139 133 - 145 mmol/L Final Potassium 03/05/2025 3.5 3.5 - 5.5 mmol/L Final Chloride 03/05/2025 106 96 - 110 mmol/L Final CO2 03/05/2025 26 21 - 32 mmol/L Final Anion Gap 03/05/2025 7 3 - 11 Final Glucose 03/05/2025 89 70 - 100 mg/dL Final BUN 03/05/2025 4 (L) 5 - 25 mg/dL Final Creatinine 03/05/2025 0.64 0.50 - 1.10 mg/dL Final eGFR 03/05/2025 115 >=60 mL/min/1.73m2 Final Calculation based on the Chronic Kidney Disease Epidemiology Collaboration (CKD- EPI) equation refitwithout adjustment for race. BUN/Creatinine Ratio 03/05/2025 6.3 Final Calcium 03/05/2025 9.3 8.5 - 10.5 mg/dL Final Phosphorus 03/05/2025 3.2 2.5 - 4.5 mg/dL Final WBC 03/05/2025 4.0 (L) 4.8 - 10.8 K/mcL Final RBC 03/05/2025 3.70 (L) 3.80 - 4.80 M/mcL Final Hemoglobin 03/05/2025 11.1 (L) 11.5 - 16.0 g/dL Final Hematocrit 03/05/2025 34.3 (L) 35.0 - 47.0 % Final MCV 03/05/2025 93.5 79.0 - 98.0 FL Final MCH 03/05/2025 30.2 27.0 - 32.0 pcg Final MCHC 03/05/2025 32.4 32.0 - 37.0 g/dL Final RDW 03/05/2025 13.5 11.0 - 15.0 % Final Platelets 03/05/2025 197 130 - 400 K/mcL Final MPV 03/05/2025 11.0 7.0 - 11.0 FL Final NRBC 03/05/2025 0.0 <1.0 % Final NRBC Absolute 03/05/2025 0.00 <0.10 K/mcL Final Neutrophils Relative 03/05/2025 31.3 % Final Lymphocytes Relative 03/05/2025 55.1 % Final Monocytes Relative 03/05/2025 8.0 % Final Eosinophils Relative 03/05/2025 4.7 % Final Basophils Relative 03/05/2025 0.7 % Final Immature Granulocytes Relative 03/05/2025 0.2 % Final Neutrophils Absolute 03/05/2025 1.25 (L) 1.50 - 7.00 K/mcL Final Lymphocytes Absolute 03/05/2025 2.21 1.00 - 5.00 K/mcL Final Monocytes Absolute 03/05/2025 0.32 0.20 - 1.00 K/mcL Final Eosinophils Absolute 03/05/2025 0.19 0.00 - 0.50 K/mcL Final Basophils Absolute 03/05/2025 0.03 0.00 - 0.20 K/mcL Final Immature Granulocytes Absolute 03/05/2025 0.01 0.00 - 0.03 K/mcL Final VITALS: BP: 142/85 (03/05 806) Heart Rate: 67 (03/05 806) Heart Rate Source: Brachial (03/04 412) Temp: 36.3 ??C (97.4 ??F) (03/05 806) Temp Source: Temporal (03/05 806) SpO2: 92 % (03/05 806) O2 Flow Rate (L/min): 2 L/min (03/04 412) O2 Delivery Method: Other (Comment) (03/04 2033) ASSESSMENT: Celina Ahuja is a 40 y.o. female with psychiatric history significant for depression and medical history significant for but not limited to asthma who was admitted with alcohol w/d symptoms and suicidal ideations. Psychiatry was consulted for evaluation of suicidal ideations. DSM-5 DIAGNOSIS: Suicidal ideations MDD, recurrent, severe, without psychotic features Alcohol use disorder Alcohol w/d symptoms Cannabis use disorder Asthma Admitted with alcohol w/d symptoms and suicidal ideations TREATMENT PLAN: Pt has verbalized understanding and given consent/agreement with medications and plan offered. LEVEL OF CARE: Continue current level of treatment. RECOMMENDATIONS: Continue Zoloft 25 mg PO qHS for depression. Discussed/Reviewed mechanism of action of SSRIs, expected benefits and time to response, common SEs including GI, CROSS, drowsiness or activation, sexual SEs, and more rare but serious adverse effects including agitation, all, suicidal thoughts and behaviors. Of note, the patient meets criteria for Section 12 given recent suicide attempt. She cannot leave AMA. Please alert the u/s once the patient has been medically cleared. At that time, will ask the copy center specialist to evaluate the patient for possible transfer to a psychiatric unit. Continue sitter for safety at present. Medication Education: Risks, benefits, alternatives, and potential side effects were discussed withthe patient. Patient voiced understanding and agreed with medication regimen described above. LABS: Reviewed and discussed most recent labs results. MEDICATION CONTRACT: Patient agreed to take medication only as prescribed and acknowledges that services may be terminated if prescription abuse is observed. SAFETY PLAN: Patient is to alert team if symptoms worsen. Team will monitor for development of suicidal ideations or an acute medication reaction. - Call 911 or present to nearest Emergency Room in case of crisis / suicidal thoughts upon discharge. EDUCATION/CONSENT: Discussed and explained all diagnoses including differential diagnosis and treatment options. Discussed risks, benefits, potential side effects, contraindications, potential drug-drug interactions, alternatives to current medications and medication allergies as noted above. Discussed continuing to monitor for side effects and treatment efficacy prospectively and delineated patient's involvement and responsibility in monitoring for side effects and efficacy. Christian infante expressed understanding of these recommendations. BARRIERS TO LEARNING: Patient demonstrates a readiness to learn. Patient verbalizes understanding and agrees to plan. No barriers to communication noted. MEDICATION RECONCILIATION: Medications were reviewed and reconciled with the patient. PREVENTATIVE RECOMMENDATIONS: Preventative Health Education Counseling: discussed proper diet/nutrition, exercise, and sleep hygiene. The patient was encouraged to avoid nicotine, alcohol and illicitdrugs at all times. The patient was made aware that records from the u/s can be sent to his/her PCP at any time that he/she requests. * Shanae Dailey RN - 03/05/2025 3:12 AM EDT Goals: Problem: Substance Use, Misuse: Substance Abuse (Adult IP BH) Goal: (Goal) Acknowledge abuse of alcohol and or substances and state the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 risk for harm to herself and others. She is at low risk for homicidal plan and intent. She would benefit from inpatient level of care for safety, stabilization and medication evaluation. She is on a section 12 involuntary. Recommendations were discussed with requesting provider. It was a pleasure to assist Celina Ahuja here at [facility]. This report is written and finalized by: Irma Sotomayor MS Behavioral Health Specialist [facility] (Tel): [phone] / : [phone] * Erinn Adams MD - 03/05/2025 11:35 AM EDTAssociated Order(s): IP CONSULT TO NEUROLOGY TeleNeurology Consult Reason for consult: seizures History obtained from: Patient and EMR/Housestaff Referring physician: Gianni Reynoso* History of Present Illness: Celina Ahuja is a 40 y.o. female with history of asthma and depression who presented with suicidal ideation. The patient was initially seen 8 hours ago with complaints of depression and suicidalideation secondary to multiple life stressors. She had plans to drink herself to . In the ED she was observed to have a tonic clonic seizure which was terminated with lorazepam 2 mg IV x1. She did not bite her tongue and denies loss of bowel or bladder control. She reported prior suicideattempt by alcohol abuse. Per primary team, no other symptoms of EtOH withdrawal Today the patient reports mild CROSS She was told she had seizure last year She reports drinking 2 or more pints, daily for months and stopped 2 days before she had the seizure She reports SI, she had plans for SA by drinking heavy amount of alcohol She reports HI, she was thinking about hurting her cousin after she told her to leave the house butdecided not to hurt her and left. No prior seizures She is homeless She is not working She has been depressed since her mother about a year ago Sitter in the room She stayed with her family and was asked to leave She drive No h/o migraines She reports chronic low back pain Home AP tx: none Prior neurological history: negative for epilepsy, stroke Neurologic Review of Systems - Denied numbness, tingling, dizziness, weakness, diplopia History of head/neck surgery? no Ambulation: Independent Substance use: weed 7 times per day Bowel/ bladder control : Full control Smoking: denies Alcohol: denies ROS: All 14 systems were reviewed and were negative except what is mentioned above in the HPI. Past medical, surgical, social and family histories were reviewed and noted in EMR Current medications were reviewed and noted in EMR PAST MEDICAL HISTORY Past Medical History: Diagnosis Date Asthma HOME MEDICATIONS Medications Prior to Admission Medication Sig Dispense Refill Last Dose/Taking Ventolin HFA 90 mcg/actuation inhaler Inhale 2 puffs by mouth every 2 (two) hours if needed for wheezing. Taking As Needed MEDICATIONS Scheduled Meds:enoxaparin, 40 mg, subcutaneous, q24h ELLIE folic acid, 1 mg, oral, Daily [START ON 03/06/2025] naltrexone, 50 mg, oral, Daily sertraline, 25 mg, oral, Nightly sodium chloride, 10 mL, intravenous, BID thiamine, 100 mg, oral, Daily Continuous Infusions: PRN Meds:PRN medications: acetaminophen, chlordiazePOXIDE OR chlordiazePOXIDE OR chlordiazePOXIDE, ondansetron (ZOFRAN-ODT) disintegrating tablet OR ondansetron, Insert peripheral IV AND Maintain IV access AND Saline lock IV AND sodium chloride AND sodium chloride ALLERGIES Allergies Allergen Reactions Latex FAMILY HISTORY Family History Problem Relation Name Age of Onset Diabetes Mother Hypertension Mother Diabetes Father Hypertension Father SOCIAL HISTORY Social History Socioeconomic History Marital status: Single Spouse name: Not on file Number of children: Not on file Years of education: Not on file Highest education level: Not on file Occupational History Not on file Tobacco Use Smoking status: Never Smokeless tobacco: Never Substance and Sexual Activity Alcohol use: Yes Comment: 1 pint liquor daily Drug use: Yes Types: Marijuana/Cannabis Sexual activity: Not on file Other Topics Concern Not on file Social History Narrative Not on file NEUROLOGICAL EXAMINATION Vital Sign: Visit Vitals BP (!) 142/85 (BP Location: Left arm, Patient Position: Lying) Pulse 67 Temp 36.3 ??C (97.4 ??F) (Temporal) Resp 16 Ht 1.676 m (66 ) Wt 74.8 kg (165 lb) SpO2 92% BMI 26.63 kg/m?? Smoking Status Never BSA 1.84 m?? NIH Stroke Scale TIME: 1a Level of consciousness: 0 1b. LOC questions: 0 1c. LOC commands: 0 2. Best Gaze: 0 3. Visual: 0 4. Facial Palsy: 0 5a. Motor left arm: 0 5b. Motor right arm: 0 6a. motor left le 6b Motor right le 7. Limb Ataxia: 0 8. Sensory: 0 9. Best Language: 0 10. Dysarthria: 0 11. Extinction and Inattention: 0 Total: 0 The exam was done with the assistance of the TAYLER RANGEL, for Tele communication purpose. General exam: Well developed, well dressed and in no acute distress. Symmetric chest rise, normal respiratory effort and rhythm. No audible wheezing heard. Mental status: Alert and oriented to person, place and time. Patient is speaking in full sentences. Depressed and tearful Cranial Nerves: Visual Acuity: Good BL Extraocular movements intact. Face is symmetric at rest. Sensation is equal to LT on face. Tongue is midline with normal tongue protrusion and lateral movements. Motor Exam: Can move neck in all directions without pain Able to move all extremities without weakness No drift of BUE No drift of BLE Supervisor [employer] strong BL Feet strong BL Sensory Examination: Light touch intact bilaterally in upper and lower extremities. Reflexes: (R/L): Negative babinski sign. Coordination and Gait: Finger to nose testing intact bilaterally with no dysmetria. Deferred gait LABS: [facility] (last 7 days): ABG Anemia Results from last 7 days Lab Units 03/05/25 0629 WBC AUTO K/mcL 4.0* HEMOGLOBIN g/dL 11.1* HEMATOCRIT % 34.3* PLATELETS K/mcL 197 Hematology Results from last 7 days Lab Units 03/05/25 0629 WBC AUTO K/mcL 4.0* HEMOGLOBIN g/dL 11.1* HEMATOCRIT % 34.3* PLATELETS K/mcL 197 LYMPHS PCT AUTO % 55.1 MONO PCT AUTO % 8.0 EOS PCT AUTO % 4.7 Chemistry Results from last 7 days Lab Units 03/05/25 0629 SODIUM mmol/L 139 POTASSIUM mmol/L 3.5 CHLORIDE mmol/L 106 CO2 mmol/L 26 BUN mg/dL 4* CREATININE mg/dL 0.64 GLUCOSE mg/dL 89 CALCIUM mg/dL 9.3 Results from last 7 days Lab Units 03/03/25 2146 ALK PHOS unit/L 82 BILIRUBIN TOTAL mg/dL 0.4 TOTAL PROTEIN g/dL 7.1 ALT unit/L 16 AST unit/L 21 Cardiac No results found for: TROPONINT , TROPONINI , HSTROPI Coagulation No results found for: PTT Thyroid Function / HGBA1C No results found for: HGBA1C Urine No results found for: COLORUA , CLARITYUA , SPECGRAVUA , PHUA , PROTUA , GLUCOSEUA , KETONESUA , BILIRUBINUA , BLOODUA , UROBILINOGUA , NITRITEUA Micro No results found for: BLOODCX , CLOSTD , GRAMSTAIN , URINECX Assessment: I independently reviewed results of CT CT head on my read is showing no intracranial hemorrhage, No hyperdense vessel sign identified. No acute abnormalities. EKG reported as NSR EEG routine was done on 03/04, reported as Background EEG rhythm is 10 to 12 Hz 5 to 70 ??V posteriorly lower amplitude faster anteriorly. Patient transition in and out of drowsiness. Intermittently left temporal sharp and slow waves were noted. abnormal EEG suggestive of left temporal irritabilitythat could result in partial or complex partial seizures. On my review of the EEG, no seizures seen, several left temporal sharp waves Labs: alcohol<3, UDS +THC New Onset provoked Generalized Tonic -Clonic Seizure Suspected Etiology:Alcohol withdrawal Generalized Tonic -Clonic Seizure, drug abuse Chronic alcohol abuse Chronic marijuana use Depression -SI and HI Mild hypokalemia Mild hypomagnesemia Plan: The following are the recommendations: The generalized seizure is likely provoked but given abnormalities on EEG, further evaluation will be needed Start Depakote 500mg BID Repeat EEG in 2-3 weeks Continue Zoloft Continue Thiamin and folic acid Further evaluation of SI, HI, follow up with psychiatry We dicussed in length about alcohol cessation, depression and drug abuse No driving for 6 months Follow up with Neurology in 2-4 weeks Recommendations were discussed with current provider: CHRISTIAN Lee Thank you for allowing us to participate in the care of this pleasant patient and please do not hesitate to contact us should questions or concerns arise. Sincerely, Dr. Adams Neurology attending Department of Neurology The patient received guidance on receiving healthcare through telehealth, including the use of HIPAA privacy -compliant technology for remote communication and its associated privacy risks. The patient was also informed of the limitations of treatment provided through telehealth and that in the event of a lost or failed video connection, the provider may call back or reschedule the visit. Alternatively, the patient may opt for an in-person visit. The patient gave consent for the use of video communication and provided care and confirmed that they were in a quiet and private location to discuss their health freely. The patient understands the visit will be submitted to their insurance and that they are responsible for any copay or deductible charges. Additionally, if the patient is Limited Afghan Proficient, deaf, or hard of hearing, speech impaired, or has another disability which impairs their ability to communicate, the services of a qualified clothes separator will be provided during the visit. Patients Location: [facility] Total time: 80min Other individuals taking part in remote visit: CLAIRE The text in the report has been created with a speech recognition text to software program. Effortshave been made to eliminate errors in this report, however, if there are some errors that remain, please take them in the context in which they are written. * Hayley Mccall MD - 03/04/2025 1:11 PM EDTAssociated Order(s): IP CONSULT TO PSYCHIATRY Connected to patient's room via I-pad with help from benefits technician; assistance much appreciated. Patient consented verbally to visit via Telehealth video conferencing modality. Patient educated asto likely differences between Telehealth care and face to face care. Patient informed of the risks and benefits of using Telehealth services and procedures and likely risks and benefits of using alternatives to Telehealth services. Patient informed of the right to refuse Telehealth services at any time without jeopardizing his/her right to future care, services or benefits. Patient was informed that he/she is being seen solely by Hayley Mccall MD today via secure audio/visual connection in alocked virtual exam room. Persons present on patient's end: Patient, sitter Persons present on provider's end in [place]: Hayley Mccall MD CHART REVIEWED, PATIENT INTERVIEWED. CHIEF COMPLAINT: Suicidal ideations Time spent on encounter: 30 min. (21 min face to face, 9 min in chart review and documentation) Billing: [facility] HISTORY OF PRESENT ILLNESS Unique Gian Ahuja is a 40 y.o. female with psychiatric history significant for depression and medical history significant for but not limited to asthma who was admitted with alcohol w/d symptoms and suicidal ideations. Psychiatry was consulted for evaluation of suicidal ideations. The patient states that she has a lot going on right now. She reports that she is not usually a heavy drinker, but her mother recently and she has been self-medicating her grief with alcohol. She has been drinking to the point of intoxication and blacking/passing out. She reports that she is being evicted from her housing and has been waking up in various places after drinking heavily. She feels that she is very depressed, and she is not coping well at present. She reports that she has previously hadher life really together, but now she feels like she has nothing, including her mother. Every effort she puts forth seems to not work out for her right now. She notes that this is the longest she hasever been out of work and she doesn't feel like her normal self. She has very low mood, poor sleep,low appetite, poor concentration, low energy, and feelings of guilt/worthlessness. She is not currently or . The patient feels like drinking until she doesn't wake up anymore, and that was what she was trying to do when she was brought to the hospital. She doesn't want to live anymore. She doesn't take any psychotropic medications for her depression at present, but she notesthat she was in [facility] for a few weeks earlier this year and was prescribed medication. However, she ended up not being able to fill or continue to take her medication after she left there. She is currently experiencing homelessness. She feels that she is currently past her alcohol w/d symptoms. She is not currently craving alcohol. REVIEW OF SYSTEMS CONSTITUTIONAL: The patient denies fevers, chills, sweats and body ache. HEENT: Denies CROSS, blurry vision, eye pain, tinnitus, vertigo, gingival bleeding, sore throat, neck or thyroid masses. RESPIRATORY: Denies cough, sputum, hemoptysis. CARDIAC: Denies chest pain, pressure, palpitations, irregular heartbeats. Denies lower extremity edema. GASTROINTESTINAL: Denies abdominal pain, changes in bowel habits or any bleeding on toilet paper. GENITOURINARY: Denies dysuria, hematuria, nocturia or frequency. NEUROLOGIC: Denies headaches, dizziness, syncope. MUSCULOSKELETAL: C/o back pain. VASCULAR: Denies claudication and cramping. ENDOCRINOLOGY: Denies heat or cold intolerance. HEMATOLOGY: Denies easy bleeding or blood transfusion. DERMATOLOGY: Denies changes in moles or pigmentation changes. Psychiatric ROS: Depression: See HPI. All: The patient denies elevated/expansive mood, decreased need for sleep, grandiosity, pressuredspeech, flight of ideas, distractibility, increase in goal directed activity, and hypersexuality. Psychosis: The patient denies audio or visual hallucinations, delusions, thought broadcasting, thought insertion, delusions of reference, catatonia, or disorganized speech or behavior. Anxiety: The patient denies any excessive worry, restlessness, fatigue, poor concentration, irritability, muscle tension, or anxiety-related sleep changes. Panic: The patient denies any recent panic episodes. PTSD: The patient does not endorse any current s/s related to PTSD. OCD: The patient denies intrusive thoughts, repetitive behaviors, counting, checking, washing, symmetry, or grouping and ordering that take up more than 1 hour of the day. Eating Disorder: The patient denies feeling overweight, excessive dieting or exercise to lose weight, overuse of laxatives, binging/purging behaviors, and amenorrhea. SOCIAL HISTORY : The patient was born in [place], [place] and was raised in [place], [place] by her mother. Her father was around for the first few years but was heavily involved in alcohol use and fighting and wasn't a good dad to her. She has one brother and sister on her mother's side and half-siblings on herfather's side. She dropped out of in 11th grade and dropped out when she got . She got her GED. Marital Status: Single, never . She has three adult children. Scientologist: Muslim. Housing: Currently experiencing homelessness. Work: Unemployed at present. 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 She lost her most recent job after her mother and she felt like she couldn't work. Legal: Currently has an active DV charge against her for fighting with her ex. Trauma: See above. PSYCHIATRIC HISTORY Diagnosis: Depression, SI Outpatient treatment: The patient is not currently linked with an outpatient psychiatrist. She was supposed to go to [facility] after discharge from [facility], but that fell through. She is not linked withan individual therapist. Residential treatment: Denies any h/o residential admissions. Inpatient admissions: Admitted to [facility] earlier this year. She has been in another hospital for 2 weeks in the past. Suicidal self-directed violence: See above. Non-suicidal self-directed violence: Admits to cutting for emotional relief when she was younger. Violence history: See above. Psychotropic medication trials: She has been on medication in the past but can't recall what it was. SUBSTANCE USE HISTORY Alcohol: See HPI. She has been drinking a pint or more of liquor per day lately. Illicit Substances: Uses marijuana regularly. Denies any h/o IVDU. Nicotine: Denies any current or past use. Caffeine: Drinks soda from time to time. MEDICAL HISTORY Non-psychiatric medical history: Past Medical History: Diagnosis Date Asthma Current medications: enoxaparin, 40 mg, subcutaneous, q24h ELLIE folic acid, 1 mg, oral, Daily sodium chloride, 10 mL, intravenous, BID thiamine, 100 mg, oral, Daily ALLERGIES: Allergies Allergen Reactions Latex FAMILY HISTORY: Family History Problem Relation Name Age of Onset Diabetes Mother Hypertension Mother Diabetes Father Hypertension Father MSE: Appearance: AOx4. Appears stated age, well groomed. Pleasant and cooperative. Adequate eye contact.No psychomotor agitation or retardation. No evidence of EPS. Muscle tone/station: WNL. Orientation: To person, place, time, and situation. Attention and Concentration: No deficits in attention and concentration. Speech: Normal rate, rhythm, volume, and tone. Mood: Horrible. Affect: Tearful and dysphoric with restricted range, mood congruent. No lability noted. Thought Process: Coherent, linear, logical, and goal-directed. No FOI or GAURAV. No thought blocking. Thought Content: Current SI, as above. Denies homicidal ideation. Denies auditory/visual hallucinations. No delusions. No paranoia. Perception/associations: Denies hallucinations, somatic complaints, or tactile disturbances Suicidal Ideations: Admits to h/o suicidal ideations with plan and intent. Homicidal Ideations: Pt denies HI, intent, or plan. Low acute risk. No history of violence. No access to firearms. Behavior: No abnormal behavior during interview. Fund of Knowledge: Appropriate for age and level of education Intellect/Memory: Estimated as average based on interview. Immediate, recent, and remote memory is grossly intact. Language: No deficits Judgment/Insight: limited Musculoskeletal Exam: Movement: [x]normal []abnormal [-]dyskinesias [-]tremors [-]tics Station: [x]upright []hyperflexed/stooped []hyperextended Muscle strength [x]appears normal [-]appears abnormal Muscle tone: [x]normal [-]muscle rigidity LABS: Admission on 03/03/2025 Component Date Value Ref Range Status Sodium 03/03/2025 139 133 - 145 mmol/L Final Potassium 03/03/2025 3.1 (L) 3.5 - 5.5 mmol/L Final Chloride 03/03/2025 105 96 - 110 mmol/L Final CO2 03/03/2025 29 21 - 32 mmol/L Final Anion Gap 03/03/2025 5 3 - 11 Final Glucose 03/03/2025 108 (H) 70 - 100 mg/dL Final BUN 03/03/2025 8 5 - 25 mg/dL Final Creatinine 03/03/2025 0.74 0.50 - 1.10 mg/dL Final eGFR 03/03/2025 105 >=60 mL/min/1.73m2 Final Calculation based on the Chronic Kidney Disease Epidemiology Collaboration (CKD- EPI) equation refitwithout adjustment for race. BUN/Creatinine Ratio 03/03/2025 10.8 Final Calcium 03/03/2025 9.3 8.5 - 10.5 mg/dL Final AST (SGOT) 03/03/2025 21 10 - 42 unit/L Final ALT (SGPT) 03/03/2025 16 10 - 60 unit/L Final Alkaline Phosphatase 03/03/2025 82 42 - 121 unit/L Final Total Protein 03/03/2025 7.1 6.0 - 8.0 g/dL Final Albumin 03/03/2025 3.6 3.2 - 5.0 g/dL Final Total Bilirubin 03/03/2025 0.4 0.0 - 1.4 mg/dL Final Ethanol Level 03/03/2025 <3 0 - 10 mg/dL Final Acetaminophen Level 03/03/2025 <2.0 (L) 10.0 - 30.0 mcg/mL Final Salicylate Level 03/03/2025 5.4 2.0 - 29.0 mg/dL Final Amphetamine Screen, Ur 03/03/2025 Negative Negative Final Certain OTC medications containing ephedrine, phenylephrine, pseudoephedrine and phenylpropanolamine can cause false positive results. Barbiturate Screen, Ur 03/03/2025 Negative Negative Final Benzodiazepine Screen, Ur 03/03/2025 Negative Negative Final Cocaine Screen, Ur 03/03/2025 Negative Negative Final Opiate Screen, Ur 03/03/2025 Negative Negative Final Cannabinoid (THC) Screen, Ur 03/03/2025 Positive (A) Negative Final Specimens from patients taking pantoprazole sodium (Protonix) have been shown to produce false positive results. Oxycodone Screen, Ur 03/03/2025 Negative Negative Final Fentanyl, Ur 03/03/2025 Negative Negative Final Buprenorphine Screen Urine 03/03/2025 Negative Negative Final PCP Scrn, Ur 03/03/2025 Negative Negative Final Assay cutoff 25 ng/mL Semi-quantitative assay for screening purposes only. Unconfirmed screening result should not be used for non-medical purposes. *ALTERNATE METHOD CONFIRMATION DONE UPON REQUEST ONLY* Methadone Screen, Urine 03/03/2025 Negative Negative Final Assay cutoff 300 ng/mL Semi-quantitative assay for screening purposes only. Unconfirmed screening result should not be used for non-medical purposes. *ALTERNATE METHOD CONFIRMATION DONE UPON REQUEST ONLY* WBC 03/03/2025 3.9 (L) 4.8 - 10.8 K/mcL Final RBC 03/03/2025 3.50 (L) 3.80 - 4.80 M/mcL Final Hemoglobin 03/03/2025 10.7 (L) 11.5 - 16.0 g/dL Final Hematocrit 03/03/2025 33.1 (L) 35.0 - 47.0 % Final MCV 03/03/2025 93.8 79.0 - 98.0 FL Final MCH 03/03/2025 30.3 27.0 - 32.0 pcg Final MCHC 03/03/2025 32.3 32.0 - 37.0 g/dL Final RDW 03/03/2025 14.0 11.0 - 15.0 % Final Platelets 03/03/2025 204 130 - 400 K/mcL Final MPV 03/03/2025 10.8 7.0 - 11.0 FL Final NRBC 03/03/2025 0.0 <1.0 % Final NRBC Absolute 03/03/2025 0.00 <0.10 K/mcL Final Neutrophils Relative 03/03/2025 33.1 % Final Lymphocytes Relative 03/03/2025 55.9 % Final Monocytes Relative 03/03/2025 7.9 % Final Eosinophils Relative 03/03/2025 2.6 % Final Basophils Relative 03/03/2025 0.5 % Final Immature Granulocytes Relative 03/03/2025 0.0 % Final Neutrophils Absolute 03/03/2025 1.29 (L) 1.50 - 7.00 K/mcL Final Lymphocytes Absolute 03/03/2025 2.18 1.00 - 5.00 K/mcL Final Monocytes Absolute 03/03/2025 0.31 0.20 - 1.00 K/mcL Final Eosinophils Absolute 03/03/2025 0.10 0.00 - 0.50 K/mcL Final Basophils Absolute 03/03/2025 0.02 0.00 - 0.20 K/mcL Final Immature Granulocytes Absolute 03/03/2025 0.00 0.00 - 0.03 K/mcL Final Extra Tube 03/03/2025 Hold for add-ons. Final Auto resulted. Glucose POCT 03/04/2025 165 (H) 70 - 100 mg/dL Final POCT Comment 03/04/2025 RN Notified Final Magnesium 03/03/2025 1.7 (L) 1.9 - 2.6 mg/dL Final Ventricular Rate ECG 03/04/2025 72 BPM Preliminary Atrial Rate 03/04/2025 72 BPM Preliminary P-R Interval 03/04/2025 158 ms Preliminary QRS Duration 03/04/2025 102 ms Preliminary Q-T Interval 03/04/2025 386 ms Preliminary QTc 03/04/2025 422 ms Preliminary P Wave [place] 03/04/2025 21 degrees Preliminary R [place] 03/04/2025 58 degrees Preliminary T [place] 03/04/2025 57 degrees Preliminary ECG Interpretation 03/04/2025 Preliminary Value:Normal sinus rhythm Normal ECG No previous ECGs available Sodium 03/04/2025 137 133 - 145 mmol/L Final Potassium 03/04/2025 3.8 3.5 - 5.5 mmol/L Final Chloride 03/04/2025 106 96 - 110 mmol/L Final CO2 03/04/2025 27 21 - 32 mmol/L Final Anion Gap 03/04/2025 4 3 - 11 Final Glucose 03/04/2025 98 70 - 100 mg/dL Final BUN 03/04/2025 5 5 - 25 mg/dL Final Creatinine 03/04/2025 0.65 0.50 - 1.10 mg/dL Final eGFR 03/04/2025 114 >=60 mL/min/1.73m2 Final Calculation based on the Chronic Kidney Disease Epidemiology Collaboration (CKD- EPI) equation refitwithout adjustment for race. BUN/Creatinine Ratio 03/04/2025 7.7 Final Calcium 03/04/2025 8.6 8.5 - 10.5 mg/dL Final WBC 03/04/2025 4.3 (L) 4.8 - 10.8 K/mcL Final RBC 03/04/2025 3.60 (L) 3.80 - 4.80 M/mcL Final Hemoglobin 03/04/2025 10.7 (L) 11.5 - 16.0 g/dL Final Hematocrit 03/04/2025 33.8 (L) 35.0 - 47.0 % Final MCV 03/04/2025 94.7 79.0 - 98.0 FL Final MCH 03/04/2025 30.0 27.0 - 32.0 pcg Final MCHC 03/04/2025 31.7 (L) 32.0 - 37.0 g/dL Final RDW 03/04/2025 13.8 11.0 - 15.0 % Final Platelets 03/04/2025 191 130 - 400 K/mcL Final MPV 03/04/2025 10.6 7.0 - 11.0 FL Final NRBC 03/04/2025 0.0 <1.0 % Final NRBC Absolute 03/04/2025 0.00 <0.10 K/mcL Final Neutrophils Relative 03/04/2025 51.4 % Final Lymphocytes Relative 03/04/2025 37.1 % Final Monocytes Relative 03/04/2025 7.5 % Final Eosinophils Relative 03/04/2025 3.3 % Final Basophils Relative 03/04/2025 0.5 % Final Immature Granulocytes Relative 03/04/2025 0.2 % Final Neutrophils Absolute 03/04/2025 2.20 1.50 - 7.00 K/mcL Final Lymphocytes Absolute 03/04/2025 1.59 1.00 - 5.00 K/mcL Final Monocytes Absolute 03/04/2025 0.32 0.20 - 1.00 K/mcL Final Eosinophils Absolute 03/04/2025 0.14 0.00 - 0.50 K/mcL Final Basophils Absolute 03/04/2025 0.02 0.00 - 0.20 K/mcL Final Immature Granulocytes Absolute 03/04/2025 0.01 0.00 - 0.03 K/mcL Final hCG Qual 03/03/2025 Negative Negative Final Magnesium 03/04/2025 2.3 1.9 - 2.6 mg/dL Final VITALS: BP: 162/89 (03/04 902) Heart Rate: 71 (03/04 902) Heart Rate Source: Brachial (03/04 412) Temp: 36.6 ??C (97.9 ??F) (03/04 902) Temp Source: Temporal (03/04 902) SpO2: 99 % (03/04 902) O2 Flow Rate (L/min): 2 L/min (03/04 412) O2 Delivery Method: Nasal cannula (03/04 412) ASSESSMENT: Celina Ahuja is a 40 y.o. female with psychiatric history significant for depression and medical history significant for but not limited to asthma who was admitted with alcohol w/d symptoms and suicidal ideations. Psychiatry was consulted for evaluation of suicidal ideations. She continues to reports marked symptoms of depression and active suicidal ideations with plan and intent. DSM-5 DIAGNOSIS: Suicidal ideations MDD, recurrent, severe, without psychotic features Alcohol use disorder Alcohol w/d symptoms Cannabis use disorder Asthma Admitted with alcohol w/d symptoms and suicidal ideations TREATMENT PLAN: Pt has verbalized understanding and given consent/agreement with medications and plan offered. LEVEL OF CARE: Continue current level of treatment. RECOMMENDATIONS: Discussed multiple antidepressants with the patient today; she opted for a trial of Zoloft. Initiate Zoloft 25 mg PO qHS for depression. Discussed/Reviewed mechanism of action of SSRIs, expected benefits and time to response, common SEs including GI, CROSS, drowsiness or activation, sexual SEs, and more rare but serious adverse effects including agitation, all, suicidal thoughts and behaviors. Of note, the patient meets criteria for Section 12 given recent suicide attempt and continue suicidal ideations. She cannot leave AMA. Please alert the u/s once the patient has been medically cleared. At that time, will ask the copy center specialist to evaluate the patient for possible transfer to a psychiatric unit. Continue sitter for safety at present. Medication Education: Risks, benefits, alternatives, and potential side effects were discussed withthe patient. Patient voiced understanding and agreed with medication regimen described above. LABS: Reviewed and discussed most recent labs results. MEDICATION CONTRACT: Patient agreed to take medication only as prescribed and acknowledges that services may be terminated if prescription abuse is observed. SAFETY PLAN: Patient is to alert team if symptoms worsen. Team will monitor for development of suicidal ideations or an acute medication reaction. - Call 911 or present to nearest Emergency Room in case of crisis / suicidal thoughts upon discharge. EDUCATION/CONSENT: Discussed and explained all diagnoses including differential diagnosis and treatment options. Discussed risks, benefits, potential side effects, contraindications, potential drug-drug interactions, alternatives to current medications and medication allergies as noted above. Discussed continuing to monitor for side effects and treatment efficacy prospectively and delineated patient's involvement and responsibility in monitoring for side effects and efficacy. Christian infante expressed understanding of these recommendations. BARRIERS TO LEARNING: Patient demonstrates a readiness to learn. Patient verbalizes understanding and agrees to plan. No barriers to communication noted. MEDICATION RECONCILIATION: Medications were reviewed and reconciled with the patient. PREVENTATIVE RECOMMENDATIONS: Preventative Health Education Counseling: discussed proper diet/nutrition, exercise, and sleep hygiene. The patient was encouraged to avoid nicotine, alcohol and illicitdrugs at all times. The patient was made aware that records from the u/s can be sent to his/her PCP at any time that he/she requests. * Iman Tejeda DO - 03/04/2025 10:13 AM EDTAssociated Order(s): IP CONSULT TO ADDICTION MEDICINE; IP CONSULT TO ADDICTION MEDICINE Images from the original note were not included. Celina Ahuja 1985 [id number] Author: Iman Tejeda DO DOS: 03/04/2025 Requesting Service: Hospitalist Service Chief Complaint: Alcohol withdrawal seizure (CMS/[facility] V24, CMS/[facility] V28) Reason for Consultation: Alcohol use disorder Source of History: Patient and chart Subjective History of Present Illness: Celina Ahuja is a 40 y.o. female with a history of alcohol use disorder and depression presented to the emergency room with complaint of suicidal ideation. While in the emergency room patient sustained a seizure and was given 2 mg of IV lorazepam. Patient was seen on the floor and reports thather drinking used to be recreational but escalated in the last year after her mother's passing. She reports she would drink one half up to 2 pints of cognac per day. She does report a history of blackouts but denies a history of withdrawal seizures. She reports she was trying to cut back and quit on her own and had been at [facility] in November for 1 month. She was not started on medications for alcohol use disorder and then a month after being called and resumed drinking again. Her last drink was in the 1 pint in the afternoon on March 02. She states her intent was to stop drinking cold turkey. This morning she complains of headache. Allergies: Allergies Allergen Reactions Latex Home Medications: Prior to Admission medications Medication Sig Start Date End Date Taking? Authorizing Provider Ventolin HFA 90 mcg/actuation inhaler Inhale 2 puffs by mouth every 2 (two) hours if needed for wheezing. 12/17/24 Yes Historical Provider, cloNIDine (CATAPRES) 0.1 mg tablet Take 1 tablet (0.1 mg total) by mouth 1 (one) time each day. 11/21/24 03/04/25 Yes Historical Provider, hydrOXYzine HCL (ATARAX) 25 mg tablet Take 1 tablet (25 mg total) by mouth every 6 (six) hours if needed for anxiety. 11/21/24 03/04/25 Yes Historical Provider, hydrOXYzine pamoate (VISTARIL) 50 mg capsule Take 1 capsule (50 mg total) by mouth every 4 (four) hours if needed for anxiety. 12/17/24 03/04/25 Yes Historical Provider, melatonin 3 mg tablet Take 2 tablets (6 mg total) by mouth at bedtime as needed. 12/17/24 03/04/25 Yes Historical Provider, mirtazapine (REMERON) 30 mg tablet Take 1 tablet (30 mg total) by mouth at bedtime. at bedtime. 12/17/24 03/04/25 Yes Historical Provider, naltrexone (DEPADE) 50 mg tablet Take 1 tablet (50 mg total) by mouth 1 (one) time each day. Yes Historical Provider, OLANZapine (ZyPREXA) 5 mg tablet Take 1 tablet (5 mg total) by mouth 2 (two) times a day. 12/17/24 03/04/25 Yes Historical Provider, Past Medical History: Past Medical History: Diagnosis Date Asthma Past Surgical History: History reviewed. No pertinent surgical history. Family History: Family History Problem Relation Name Age of Onset Diabetes Mother Hypertension Mother Diabetes Father Hypertension Father Social History: Social History Tobacco Use Smoking Status Never Smokeless Tobacco Never Social History Substance and Sexual Activity Alcohol Use Yes Comment: 1 pint liquor daily Social History Substance and Sexual Activity Drug Use Yes Types: Marijuana/Cannabis She smokes marijuana daily from a dispensary. Alcohol use history as above Denies nicotine or other substances/non prescribed medications. She is unhoused and used to have a [employer] 8 voucher She was working for a [employer] but became unemployed when they changed ownership Review of Systems: Review of Systems Constitutional: Negative for chills and fever. Respiratory: Negative for shortness of breath. Cardiovascular: Negative for chest pain. Neurological: Positive for headaches. Objective Last Recorded Vitals: Blood pressure (!) 162/89, pulse 71, temperature 36.6 ??C (97.9 ??F), temperature source Temporal, resp. rate 20, height 1.676 m (66 ), weight 74.8 kg (165 lb), SpO2 99%. Physical Exam Gen: NAD, resting with blanket covering face/head HEENT: pupils normal, OP clear CV: RRR Pulm: +scattered expiratory wheezes Musc: normal ROM Skin: No rashes or lesions Neuro: Alert and oriented, No tremor Pysch: +depressed Labs: Results for orders placed or performed during the hospital encounter of 03/03/25 Drug abuse screen 8a panel, urine Collection Time: 03/03/25 9:24 PM Result Value Ref Range Amphetamine Screen, Ur Negative Negative Barbiturate Screen, Ur Negative Negative Benzodiazepine Screen, Ur Negative Negative Cocaine Screen, Ur Negative Negative Opiate Screen, Ur Negative Negative Cannabinoid (THC) Screen, Ur Positive (A) Negative Oxycodone Screen, Ur Negative Negative Fentanyl, Ur Negative Negative Buprenorphine screen, urine Collection Time: 03/03/25 9:24 PM Result Value Ref Range Buprenorphine Screen Urine Negative Negative Phencyclidine, urine Collection Time: 03/03/25 9:24 PM Result Value Ref Range PCP Scrn, Ur Negative Negative Methadone, urine Collection Time: 03/03/25 9:24 PM Result Value Ref Range Methadone Screen, Urine Negative Negative Comprehensive metabolic panel Collection Time: 03/03/25 9:46 PM Result Value Ref Range Sodium 139 133 - 145 mmol/L Potassium 3.1 (L) 3.5 - 5.5 mmol/L Chloride 105 96 - 110 mmol/L CO2 29 21 - 32 mmol/L Anion Gap 5 3 - 11 Glucose 108 (H) 70 - 100 mg/dL BUN 8 5 - 25 mg/dL Creatinine 0.74 0.50 - 1.10 mg/dL eGFR 105 >=60 mL/min/1.73m2 BUN/Creatinine Ratio 10.8 Calcium 9.3 8.5 - 10.5 mg/dL AST (SGOT) 21 10 - 42 unit/L ALT (SGPT) 16 10 - 60 unit/L Alkaline Phosphatase 82 42 - 121 unit/L Total Protein 7.1 6.0 - 8.0 g/dL Albumin 3.6 3.2 - 5.0 g/dL Total Bilirubin 0.4 0.0 - 1.4 mg/dL Ethanol Collection Time: 03/03/25 9:46 PM Result Value Ref Range Ethanol Level <3 0 - 10 mg/dL Acetaminophen level Collection Time: 03/03/25 9:46 PM Result Value Ref Range Acetaminophen Level <2.0 (L) 10.0 - 30.0 mcg/mL Salicylate level Collection Time: 03/03/25 9:46 PM Result Value Ref Range Salicylate Level 5.4 2.0 - 29.0 mg/dL CBC auto differential Collection Time: 03/03/25 9:46 PM Result Value Ref Range WBC 3.9 (L) 4.8 - 10.8 K/mcL RBC 3.50 (L) 3.80 - 4.80 M/mcL Hemoglobin 10.7 (L) 11.5 - 16.0 g/dL Hematocrit 33.1 (L) 35.0 - 47.0 % MCV 93.8 79.0 - 98.0 FL MCH 30.3 27.0 - 32.0 pcg MCHC 32.3 32.0 - 37.0 g/dL RDW 14.0 11.0 - 15.0 % Platelets 204 130 - 400 K/mcL MPV 10.8 7.0 - 11.0 FL NRBC 0.0 <1.0 % NRBC Absolute 0.00 <0.10 K/mcL Neutrophils Relative 33.1 % Lymphocytes Relative 55.9 % Monocytes Relative 7.9 % Eosinophils Relative 2.6 % Basophils Relative 0.5 % Immature Granulocytes Relative 0.0 % Neutrophils Absolute 1.29 (L) 1.50 - 7.00 K/mcL Lymphocytes Absolute 2.18 1.00 - 5.00 K/mcL Monocytes Absolute 0.31 0.20 - 1.00 K/mcL Eosinophils Absolute 0.10 0.00 - 0.50 K/mcL Basophils Absolute 0.02 0.00 - 0.20 K/mcL Immature Granulocytes Absolute 0.00 0.00 - 0.03 K/mcL SST tube Collection Time: 03/03/25 9:46 PM Result Value Ref Range Extra Tube Hold for add-ons. Magnesium Collection Time: 03/03/25 9:46 PM Result Value Ref Range Magnesium 1.7 (L) 1.9 - 2.6 mg/dL hCG, serum, qualitative Collection Time: 03/03/25 9:46 PM Result Value Ref Range hCG Qual Negative Negative POCT Glucose, blood Collection Time: 03/04/25 1:40 AM Result Value Ref Range Glucose POCT 165 (H) 70 - 100 mg/dL POCT Comment RN Notified ECG 12 lead Collection Time: 03/04/25 2:34 AM Result Value Ref Range Ventricular Rate ECG 72 BPM Atrial Rate 72 BPM P-R Interval 158 ms QRS Duration 102 ms Q-T Interval 386 ms QTc 422 ms P Wave [place] 21 degrees R [place] 58 degrees T [place] 57 degrees ECG Interpretation Normal sinus rhythm Normal ECG No previous ECGs available Basic metabolic panel Collection Time: 03/04/25 7:50 AM Result Value Ref Range Sodium 137 133 - 145 mmol/L Potassium 3.8 3.5 - 5.5 mmol/L Chloride 106 96 - 110 mmol/L CO2 27 21 - 32 mmol/L Anion Gap 4 3 - 11 Glucose 98 70 - 100 mg/dL BUN 5 5 - 25 mg/dL Creatinine 0.65 0.50 - 1.10 mg/dL eGFR 114 >=60 mL/min/1.73m2 BUN/Creatinine Ratio 7.7 Calcium 8.6 8.5 - 10.5 mg/dL CBC auto differential Collection Time: 03/04/25 7:50 AM Result Value Ref Range WBC 4.3 (L) 4.8 - 10.8 K/mcL RBC 3.60 (L) 3.80 - 4.80 M/mcL Hemoglobin 10.7 (L) 11.5 - 16.0 g/dL Hematocrit 33.8 (L) 35.0 - 47.0 % MCV 94.7 79.0 - 98.0 FL MCH 30.0 27.0 - 32.0 pcg MCHC 31.7 (L) 32.0 - 37.0 g/dL RDW 13.8 11.0 - 15.0 % Platelets 191 130 - 400 K/mcL MPV 10.6 7.0 - 11.0 FL NRBC 0.0 <1.0 % NRBC Absolute 0.00 <0.10 K/mcL Neutrophils Relative 51.4 % Lymphocytes Relative 37.1 % Monocytes Relative 7.5 % Eosinophils Relative 3.3 % Basophils Relative 0.5 % Immature Granulocytes Relative 0.2 % Neutrophils Absolute 2.20 1.50 - 7.00 K/mcL Lymphocytes Absolute 1.59 1.00 - 5.00 K/mcL Monocytes Absolute 0.32 0.20 - 1.00 K/mcL Eosinophils Absolute 0.14 0.00 - 0.50 K/mcL Basophils Absolute 0.02 0.00 - 0.20 K/mcL Immature Granulocytes Absolute 0.01 0.00 - 0.03 K/mcL Magnesium Collection Time: 03/04/25 7:50 AM Result Value Ref Range Magnesium 2.3 1.9 - 2.6 mg/dL Imaging: CT Head wo Contrast Narrative: INDICATION: Seizure, nontraumatic (Age 18-40y) CT head without contrast Comparison: None Findings: No intra-axial mass, midline shift, hydrocephalus, or acute hemorrhage. No significant atrophy-like change or white matter disease. There is no sinus or mastoid fluid. The orbits are unremarkable. There is no acute fracture. Impression: 1. No acute intracranial findings by noncontrast CT. Consider further assessment with MRI if clinically warranted. This document has been electronically signed by: William Starkey MD on 03/04/2025 05:29:18 Meds: enoxaparin, 40 mg, subcutaneous, q24h ELLIE folic acid, 1 mg, oral, Daily sodium chloride, 10 mL, intravenous, BID thiamine, 100 mg, oral, Daily PRN medications: acetaminophen, LORazepam OR LORazepam OR LORazepam, ondansetron (ZOFRAN-ODT) disintegrating tablet OR ondansetron, Insert peripheral IV AND Maintain IV access ANDSaline lock IV AND sodium chloride AND sodium chloride Assessment and Plan Celina Ahuja is a 40 y.o. female with a history of alcohol use disorder admitted with suicide ideation in the setting of alcohol withdrawal. Alcohol Use Disorder With complicated withdrawal seizure requiring IV lorazepam Recommend CIWA-Ar monitoring with chlordiazepoxide which is a long acting benzodiazepine with active metabolites Continue thiamine, folate and multivitamin. Replete electrolytes. Discussed treatment of alcohol use disorder and reviewed medications for alcohol use disorder (LALO) Reviewed other options for treatment and offered support. 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 Thank you for the interesting consultation. Please reach out with any questions or concerns. Principal Problem: Alcohol withdrawal seizure (CMS/HCC V24, CMS/HCC V28) Provider Attestation * Felix Jin - 03/03/2025 9:26 PM EDT The patient is assessed in the community by [facility] and found to be appropriate for inpatient, Bed-Search. Assessment will follow upon completion. documented in this encounter Plan of Treatment Scheduled Referrals Name Type Priority Associated Diagnoses Orde r Schedule Referral to [facility] Outpatient Referral Routine Homeless Ordered: 03/04/2025 documented as of this encounter Procedures Procedure Name Priority Date/Time Associated Diagnosis Comments COMPREHENSIVE METABOLIC PANEL Routine 03/06/2025 7:01 AM EDT EXTRA TUBES Routine 03/06/2025 6:58 AM EDT LAVENDER - EDTA Routine 03/06/2025 6:58 AM EDT ECG ANNOTATED 03/06/2025 CBC WITH AUTO DIFFERENTIAL Routine 03/05/2025 6:29 AM EDT CBC AND DIFFERENTIAL Routine 03/05/2025 6:29 AM EDT PHOSPHORUS Routine 03/05/2025 6:29 AM EDT BASIC METABOLIC PANEL Routine 03/05/2025 6:29 AM EDT ROUTINE EEG Routine 03/04/2025 12:26 PM EDT CBC WITH AUTO DIFFERENTIAL Routine 03/04/2025 7:50 AM EDT CBC AND DIFFERENTIAL Routine 03/04/2025 7:50 AM EDT MAGNESIUM Routine 03/04/2025 7:50 AM EDT BASIC METABOLIC PANEL Routine 03/04/2025 7:[address] HEAD WO CONTRAST STAT 03/04/2025 4 :16 AM EDT ECG 12-LEAD STAT 03/04/2025 2:34 AM EDT POCT GLUCOSE BLOOD Routine 03/04/2025 1: 40 AM EDT SST - GOLD Routine 03/03/2025 9:46 PM EDT EXTRA TUBES Routine 03/03/2025 9:46 PM EDT CBC WITH AUTO DIFFERENTIAL STAT 03/03/2025 9:46 PM EDT CBC AND DIFFERENTIAL STAT 03/03/2025 9:46 PM EDT HCG, SERUM, QUALITATIVE STAT Add-on 03/03/2025 9:46 PM EDT MAGNESIUM Add-On 03/03/2025 9:46 PM EDT ETHANOL STAT 03/03/2025 9:46 PM EDT ACETAMINOPHEN LEVEL STAT 03/03/2025 9 :46 PM EDT SALICYLATE LEVEL STAT 03/03/2025 9:46 PM EDT COMPREHENSIVE METABOLIC PANEL STAT 03/03/2025 9:46 PM EDT DRUG ABUSE SCREEN 8A PANEL, URINE STAT 03/03/2025 9:24 PM EDT BUPRENORPHINE SCREEN, URINE STAT 03/03/2025 9:24 PM EDT METHADONE SCREEN, URINE STAT 03/03/2025 9:24 PM EDT PHENCYCLIDINE, URINE STAT 03/03/2025 9:24 PM EDT documented in this encounter Results * (ABNORMAL) Comprehensive metabolic panel (03/06/2025 7:01 AM EDT) [facility] Sodium 139 133 - 145 mmol/L LAB CHEMISTRY METHOD 03/06/2025 9:00 AM [facility] Potassium 3.4(L) 3.5 - 5.5 mmol/L LAB CHEMISTRY METHOD 03/06/2025 9:00 AM [facility] Chloride 102 96 - 110 mmol/L LAB CHEMISTRY METHOD 03/06/2025 9:00 AM [facility] CO2 26 21 - 32 mmol/L LAB CHEMISTRY METHOD 03/06/2025 9:00 AM [facility] Anion Gap 11 3 - 11 LAB CHEMISTRY METHOD 03/06/2025 9:00 AM [facility] Glucose 85 70 - 100 mg/dL LAB CHEMISTRY METHOD 03/06/2025 9:00 AM [facility] BUN 7 5 - 25 mg/dL LAB CHEMISTRY METHOD 03/06/2025 9:00 AM [facility] Creatinine 0.70 0.50 - 1.10 mg/dL LAB CHEMISTRY METHOD 03/06/2025 9:00 AM [facility] eGFR 112 >=60 mL/min/1. 73m2 LAB CHEMISTRY METHOD 03/06/2025 9:00 AM [facility] Comment:Calculation based on the??Chronic Kidney Disease Epidemiology Collaboration (CKD-EPI) equation refit??without adjustment for race. BUN/Creatinine Ratio 10.0 LAB CHEMISTRY METHOD 03/06/2025 9:00 AM [facility] Calcium 9.7 8.5 - 10.5 mg/dL LAB CHEMISTRY METHOD 03/06/2025 9:00 AM [facility] AST (SGOT) 15 10 - 42 unit/L LAB CHEMISTRY METHOD 03/06/2025 9:00 AM [facility] ALT (SGPT) 17 10 - 60 unit/L LAB CHEMISTRY METHOD 03/06/2025 9:00 AM [facility] Alkaline Phosphatase 81 42 - 121 unit/L LAB CHEMISTRY METHOD 03/06/2025 9:00 AM [facility] Total Protein 7.6 6.0 - 8.0 g/dL LAB CHEMISTRY METHOD 03/06/2025 9:00 AM [facility] Albumin 3.6 3.2 - 5.0 g/dL LAB CHEMISTRY METHOD 03/06/2025 9:00 AM [facility] Total Bilirubin 0.7 0.0 - 1.4 mg/dL LAB CHEMISTRY METHOD 03/06/2025 9:00 AM [facility] Blood Venous blood specimen / Unknown Venipuncture / Unknown 03/06/2025 7:01 AM EDT 03/06/2025 7:30 AM EDT us Mary Anne GARCIA LAB BLOOD ORDERABLES Final Result [facility] [address] [place] [address], [place] [phone] * Lavender tube (03/06/2025 6:58 AM EDT) [facility] Extra Tube Hold for add-ons. 03/06/2025 9:01 AM EDT [facility] Comment:Auto resulted. Blood Venous blood specimen / Unknown Venipuncture / Unknown 03/06/2025 6:58 AM EDT 03/06/2025 7:31 AM EDT Gianni Greer MD LAB BLOOD ORDERABLE S Final Result [facility] [address] [place] [address], [place] [phone] * ECG-Annotated (03/06/2025) Provider Onbase ECG ORDERABLES Final Result * (ABNORMAL) CBC auto differential (03/05/2025 6:29 AM EDT) [facility] WBC 4.0(L) 4.8 - 10.8 K/mcL LAB HEMETOLOGY METHOD 03/05/2025 7:24 AM EDT [facility] RBC 3.70(L) 3.80 - 4.80 M/mcL LAB HEMETOLOGY METHOD 03/05/2025 7:24 AM EDT [facility] Hemoglobin 11.1(L) 11.5 - 16.0 g/dL LAB HEMETOLOGY METHOD 03/05/2025 7:24 AM EDT [facility] Hematocrit 34.3(L) 35.0 - 47.0 % LAB HEMETOLOGY METHOD 03/05/2025 7:24 AM EDT [facility] MCV 93.5 79.0 - 98.0 FL LAB HEMETOLOGY METHOD 03/05/2025 7:24 AM EDT [facility] MCH 30.2 27.0 - 32.0 pcg LAB HEMETOLOGY METHOD 03/05/2025 7:24 AM [facility] MCHC 32.4 32.0 - 37.0 g/dL LAB HEMETOLOGY METHOD 03/05/2025 7:24 AM [facility] RDW 13.5 11.0 - 15.0 % LAB HEMETOLOGY METHOD 03/05/2025 7:24 AM [facility] Platelets 197 130 - 400 K/mcL LAB HEMETOLOGY METHOD 03/05/2025 7:24 AM [facility] MPV 11.0 7.0 - 11.0 FL LAB HEMETOLOGY METHOD 03/05/2025 7:24 AM [facility] NRBC 0.0 <1.0 % LAB HEMETOLOGY METHOD 03/05/2025 7:24 AM [facility] NRBC Absolute 0.00 <0.10 K/mcL LAB HEMETOLOGY METHOD 03/05/2025 7:24 AM [facility] Neutrophils Relative 31.3 % LAB HEMETOLOGY METHOD 03/05/2025 7:24 AM [facility] Lymphocytes Relative 55.1 % LAB HEMETOLOGY METHOD 03/05/2025 7:24 AM [facility] Monocytes Relative 8.0 % LAB HEMETOLOGY METHOD 03/05/2025 7:24 AM [facility] Eosinophils Relative 4.7 % LAB HEMETOLOGY METHOD 03/05/2025 7:24 AM [facility] Basophils Relative 0.7 % LAB HEMETOLOGY METHOD 03/05/2025 7:24 AM [facility] Immature Granulocytes Relative 0.2 % LAB HEMETOLOGY METHOD 03/05/2025 7:24 AM [facility] Neutrophils Absolute 1.25(L) 1.50 - 7.00 K/mcL LAB HEMETOLOGY METHOD 03/05/2025 7:24 AM EDT [facility] Lymphocytes Absolute 2.21 1.00 - 5.00 K/mcL LAB HEMETOLOGY METHOD 03/05/2025 7:24 AM EDT [facility] Monocytes Absolute 0.32 0.20 - 1.00 K/mcL LAB HEMETOLOGY METHOD 03/05/2025 7:24 AM EDT [facility] Eosinophils Absolute 0.19 0.00 - 0.50 K/[facility] LAB HEMETOLOGY METHOD 03/05/2025 7:24 AM EDT [facility] Basophils Absolute 0.03 0.00 - 0.20 K/mcL LAB HEMETOLOGY METHOD 03/05/2025 7:24 AM EDT [facility] Immature Granulocytes Absolute 0.01 0.00 - 0.03 K/[facility] LAB HEMETOLOGY METHOD 03/05/2025 7:24 AM EDT [facility] Blood Venous blood specimen / Unknown Venipuncture / Unknown 03/05/2025 6:29 AM EDT 03/05/2025 7:05 AM EDT Mary Anne GARCIA LAB BLOOD ORDERABLES Final Result [facility] [address] [place] [address], * Phosphorus (03/05/2025 6:29 AM EDT) Phosphorus 3.2 2.5 - 4.5 mg/dL LAB CHEMISTRY METHOD 03/05/2025 8:04 AM EDT [facility] Blood Venous blood specimen / Unknown Venipuncture / Unknown 03/05/2025 6:29 AM EDT 03/05/2025 7:05 AM EDT us Mary Anne GARCIA LAB BLOOD ORDERABLES Final Result [facility] [address] [place] [address], * (ABNORMAL) Basic metabolic panel (03/05/2025 6:29 AM EDT) Sodium 139 133 - 145 mmol/L LAB CHEMISTRY METHOD 03/05/2025 8:03 AM [facility] Potassium 3.5 3.5 - 5.5 mmol/L LAB CHEMISTRY METHOD 03/05/2025 8:03 AM [facility] Chloride 106 96 - 110 mmol/L LAB CHEMISTRY METHOD 03/05/2025 8:03 AM [facility] CO2 26 21 - 32 mmol/L LAB CHEMISTRY METHOD 03/05/2025 8:03 AM [facility] [facility] Anion Gap 7 3 - 11 LAB CHEMISTRY METHOD 03/05/2025 8:03 AM [facility] Glucose 89 70 - 100 mg/dL LAB CHEMISTRY METHOD 03/05/2025 8:03 AM [facility] BUN 4(L) 5 - 25 mg/dL LAB CHEMISTRY METHOD 03/05/2025 8:03 AM [facility] Creatinine 0.64 0.50 - 1.10 mg/dL LAB CHEMISTRY METHOD 03/05/2025 8:03 AM [facility] eGFR 115 >=60 mL/min/1. 73m2 LAB CHEMISTRY METHOD 03/05/2025 8:03 AM [facility] Comment:Calculation based on the??Chronic Kidney Disease Epidemiology Collaboration (CKD-EPI) equation refit??without adjustment for race. BUN/Creatinine Ratio 6.3 LAB CHEMISTRY METHOD 03/05/2025 8:03 AM [facility] Calcium 9.3 8.5 - 10.5 mg/dL LAB CHEMISTRY METHOD 03/05/2025 8:03 AM EDT [facility] Blood Venous blood specimen / Unknown Venipuncture / Unknown 03/05/2025 6:29 AM EDT 03/05/2025 7:05 AM EDT Mary Anne GARCIA LAB BLOOD ORDERABLES Final Result Performing Organization Address City/[facility]/ZIP Co de Phone Number [facility]) [facility] [address] [place] [address], [place] [phone] * Routine EEG (03/04/2025 12:26 PM EDT) [...] Result * Magnesium (03/04/2025 7:50 AM EDT) Magnesium 2.3 1.9 - 2.6 mg/dL LAB CHEMISTRY METHOD 03/04/2025 8:30 AM EDT [facility] Blood Venous blood specimen / Unknown Venipuncture / Unknown 03/04/2025 7:50 AM EDT 03/04/2025 7:54 AM EDT Obdulio Bello MD LAB BLOOD ORDERABLES Final Result Performing Organization Address City/[facility]/ZIP Co de Phone Number [facility] [address] [place] [address], * (ABNORMAL) CBC auto differential (03/04/2025 7:50 AM EDT) [facility] Signature WBC 4.3(L) 4.8 - 10.8 K/mcL LAB HEMETOLOGY METHOD 03/04/2025 8:02 AM EDT [facility] RBC 3.60(L) 3.80 - 4.80 M/mcL LAB HEMETOLOGY METHOD 03/04/2025 8:02 AM EDT [facility] Hemoglobin 10.7(L) 11.5 - 16.0 g/dL LAB HEMETOLOGY METHOD 03/04/2025 8:02 AM [facility] Hematocrit 33.8(L) 35.0 - 47.0 % LAB [facility]EM[facility]OLOGY [facility] MCV 94.7 79.0 - 98.0 FL LAB HEMETOLOGY METHOD 03/04/2025 8:02 AM EDT [facility] MCH 30.0 27.0 - 32.0 pcg LAB HEMETOLOGY METHOD 03/04/2025 8:02 AM [facility] MCHC 31.7(L) 32.0 - 37.0 g/dL LAB HEMETOLOGY METHOD 03/04[facility]25 [facility] RDW 13.8 11.0 - 15.0 % LAB HEMETOLOGY METHOD 03/04/2025 8:02 AM EDT [facility] Platelets 191 130 - 400 K/mcL LAB HEMETOLOGY METHOD 03/04[facility]25 [facility] MPV 10.6 7.0 - 11.0 FL LAB HEMETOLOGY METHOD 03/04/2025 [facility] NRBC 0.0 <1.0 % LAB HEMETOLOGY METHOD 03/04/2025 8:02 AM [facility] NRBC Absolute 0.00 <0.10 K/mcL LAB HEMETOLOGY METHOD 03/04/2025 8:02 AM [facility] Neutrophils Relative 51.4 % LAB HEMETOLOGY METHOD 03/04/2025 8:02 AM [facility] Lymphocytes Relative 37.1 % LAB HEMETOLOGY METHOD 03/04/2025 8:02 AM [facility] Monocytes Relative 7.5 % LAB HEMETOLOGY METHOD 03/04/2025 8:02 AM [facility] Eosinophils Relative 3.3 % LAB HEMETOLOGY METHOD 03/04/2025 8:02 AM [facility] Basophils Relative 0.5 % LAB HEMETOLOGY METHOD 03/04/2025 8:02 AM [facility] Immature Granulocytes Relative 0.2 % LAB HEMETOLOGY METHOD 03/04/2025 8:02 AM [facility] Neutrophils Absolute 2.20 1.50 - 7.00 K/mcL LAB HEMETOLOGY METHOD 03/04/2025 8:02 AM [facility] Lymphocytes Absolute 1.59 1.00 - 5.00 K/mcL LAB HEMETOLOGY METHOD 03/04/2025 8:02 AM [facility] Monocytes Absolute 0.32 0.20 - 1.00 K/mcL LAB HEMETOLOGY METHOD 03/04/2025 8:02 AM [facility] Eosinophils Absolute 0.14 0.00 - 0.50 K/mcL LAB HEMETOLOGY METHOD 03/04/2025 8:02 AM [facility] Basophils Absolute 0.02 0.00 - 0.20 K/mcL LAB HEMETOLOGY METHOD 03/04/2025 8:02 AM [facility] Immature Granulocytes Absolute 0.01 0.00 - 0.03 K/mcL LAB HEMETOLOGY METHOD 03/04/2025 8:02 AM [facility] Blood Venous blood specimen / Unknown Venipuncture / Unknown 03/04/2025 7:50 AM EDT 03/04/2025 7:54 AM EDT us Obdulio Bello MD LAB BLOOD ORDERABLES Final Result [facility] [address] [place] [address], * Basic metabolic panel (03/04/2025 7:50 AM EDT) Sodium 137 133 - 145 mmol/L LAB CHEMISTRY METHOD 03/04/2025 8:30 AM [facility] Potassium 3.8 3.5 - 5.5 mmol/L LAB CHEMISTRY METHOD 03/04/2025 8:30 AM [facility] Chloride 106 96 - 110 mmol/L LAB CHEMISTRY METHOD 03/04/2025 8:30 AM [facility] CO2 27 21 - 32 mmol/L LAB CHEMISTRY METHOD 03/04/2025 8:30 AM [facility] Anion Gap 4 3 - 11 LAB CHEMISTRY METHOD 03/04/2025 8:30 AM [facility] Glucose 98 70 - 100 mg/dL LAB CHEMISTRY METHOD 03/04/2025 8:30 AM [facility] BUN 5 5 - 25 mg/dL LAB CHEMISTRY METHOD 03/04/2025 8:30 AM [facility] Creatinine 0.65 0.50 - 1.10 mg/dL LAB CHEMISTRY METHOD 03/04/2025 8:30 AM [facility] eGFR 114 >=60 mL/min/1. 73m2 LAB CHEMISTRY METHOD 03/04/2025 8:30 AM EDT [facility] Comment:Calculation based on the??Chronic Kidney Disease Epidemiology Collaboration (CKD-EPI) equation refit??without adjustment for race. BUN/Creatinine Ratio 7.7 LAB CHEMISTRY METHOD 03/04/2025 8:30 AM EDT [facility] Calcium 8.6 8.5 - 10.5 mg/dL LAB CHEMISTRY METHOD 03/04/2025 8:30 AM EDT [facility] Blood Venous blood specimen / Unknown Venipuncture / Unknown 03/04/2025 7:50 AM EDT 03/04/2025 7:54 AM EDT us Obdulio Bello MD LAB BLOOD ORDERABLES Final Result [facility] [address] [place] [address], * CT Head wo Contrast (03/04/2025 4:16 [...] GEMUSE QTc 422 ms GEMUSE P Wave [place] 21 degrees GEMUSE R [place] 58 degrees GEMUSE T [place] 57 degrees GEMUSE ECG Interpretation Normal sinus rhythm No previous ECGs available Confirmed by CHUN LOVELL ([id number]) on 03/04/2025 6:16:19 PM GEMUSE 03/04/2025 2:34 AM EDT 03/04/2025 6:16 PM EDT Jelena Cormier MD ECG ORDERABLES Final Re sult GEMUSE * (ABNORMAL) POCT Glucose, blood (03/04/2025 1:40 AM EDT) Glucose POCT 165(H) 70 - 100 mg/dL 03/04/2025 1:41 AM EDT [facility] POCT Comment RN Notified 03/04/2025 1:41 AM EDT [facility] Blood Capillary blood specimen / Unknown 03/04/2025 1:40 AM EDT 03/04/2025 1:42 AM EDT Jelena Cormier MD LAB POINT OF CAR E TEST DOCKED DEVICE UNSOLICITED RESULTS Final Result Performing Organization Address [facility]/ZIP Co de Phone Number [facility] [address] [place] [address], [place] [phone] * hCG, serum, qualitative (03/03/2025 9:46 PM EDT) [facility] hCG Qual Negative Negative 03/04/2025 3:53 AM EDT [facility] Blood Venous blood specimen / Unknown Venipuncture / Unknown 03/03/2025 9:46 PM EDT 03/03/2025 10:03 PM EDT Jelena Cormier MD LAB BLOOD ORDERABLES Fin al Result Performing Organization Address [facility] Co de Phone Number [facility] [address] [place] [address], [place] [phone] * (ABNORMAL) Magnesium (03/03/2025 9:46 PM EDT) [facility] Magnesium 1.7(L) 1.9 - 2.6 mg/dL LAB CHEMISTRY METHOD 03/04/2025 2:22 AM EDT [facility] Blood Venous blood specimen / Unknown Venipuncture / Unknown 03/03/2025 9:46 PM EDT 03/03/2025 10:03 PM EDT Jelena Cormier MD LAB BLOOD ORDERABLES Fin al Result Performing Organization Address [facility]/ZIP Co de Phone Number [facility] [address] [place] [address], [place] [phone] * SST tube (03/03/2025 9:46 PM EDT) [facility] Extra Tube Hold for add-ons. 03/04/2025 12:02 AM EDT [facility] Comment:Auto resulted. Blood Venous blood specimen / Unknown 03/03/2025 9:46 PM EDT 03/03/2025 10:06 PM EDT us Gilmar Casarez MD LAB BLOOD ORDERABLES Final Resu lt [facility] [address] [place] [address], [place] [phone] * (ABNORMAL) CBC auto differential (03/03/2025 9:46 PM EDT) Pathologist [facility] WBC 3.9(L) 4.8 - 10.8 K/mcL LAB HEMETOLOGY METHOD 03/03/2025 10:30 PM EDT [facility] RBC 3.50(L) 3.80 - 4.80 M/mcL LAB HEMETOLOGY METHOD 03/03/2025 10:30 PM EDT [facility] Hemoglobin 10.7(L) 11.5 - 16.0 g/dL LAB HEMETOLOGY METHOD 03/03/2025 10:30 PM EDT [facility] Hematocrit 33.1(L) 35.0 - 47.0 % LAB HEMETOLOGY METHOD 03/03/2025 10:30 PM EDT [facility] MCV 93.8 79.0 - 98.0 FL LAB HEMETOLOGY METHOD 03/03/2025 10:30 PM EDT [facility] MCH 30.3 27.0 - 32.0 pcg LAB HEMETOLOGY METHOD 03/03/2025 10:30 PM EDT [facility] MCHC 32.3 32.0 - 37.0 g/dL LAB HEMETOLOGY METHOD 03/03/2025 10:30 PM EDT [facility] RDW 14.0 11.0 - 15.0 % LAB HEMETOLOGY METHOD 03/03/2025 10:30 PM EDT [facility] Platelets 204 130 - 400 K/mcL LAB HEMETOLOGY METHOD 03/03/2025 10:30 PM EDT [facility] MPV 10.8 7.0 - 11.0 FL LAB HEMETOLOGY METHOD 03/03/2025 10:30 PM EDT [facility] NRBC 0.0 <1.0 % LAB HEMETOLOGY METHOD 03/03/2025 10:30 PM EDT [facility] NRBC Absolute 0.00 <0.10 K/mcL LAB HEMETOLOGY METHOD 03/03/2025 10:30 PM EDT [facility] Neutrophils Relative 33.1 % LAB HEMETOLOGY METHOD 03/03/2025 10:30 PM EDT [facility] Lymphocytes Relative 55.9 % LAB HEMETOLOGY METHOD [facility]/03[facility]2025 [facility] Monocytes Relative 7.9 % LAB HEMETOLOGY METHOD 03/03/2025 10:[facility] Eosinophils Relative 2.6 % LAB HEMETOLOGY METHOD 03/03/2025 10:30 PM EDT [facility] Basophils Relative 0.5 % LAB HEMETOLOGY METHOD 03/03/2025 10:30 PM [facility] Immature Granulocytes Relative 0.0 % LAB HEMETOLOGY METHOD 03/03/2025 10:[facility] Neutrophils Absolute 1.29(L) 1.50 - 7.00 K/mcL LAB HEMETOLOGY METHOD 03/03/2025 10:30 PM EDT [facility] Lymphocytes Absolute 2.18 1.00 - 5.00 K/mcL LAB HEMETOLOGY METHOD 03/03/2025 10:[facility] Monocytes Absolute 0.31 0.20 - 1.00 K/mcL LAB HEMETOLOGY METHOD 03/03/2025 10:[facility] Eosinophils Absolute 0.10 0.00 - 0.50 K/mcL LAB HEMETOLOGY METHOD 03/03/2025 10:30 PM EDT [facility] Basophils Absolute 0.02 0.00 - 0.20 K/[facility] LAB HEMETOLOGY METHOD 03/03/2025 10:30 PM EDT [facility] Immature Granulocytes Absolute 0.00 0.00 - 0.03 K/[facility] LAB HEMETOLOGY METHOD 03/03/2025 10:30 PM EDT [facility] Blood Venous blood specimen / Unknown Venipuncture / Unknown 03/03/2025 9:46 PM EDT 03/03/2025 10:07 PM EDT us Gilmar Casarez MD LAB BLOOD ORDERABLES Final Resu lt Performing Organization Address [facility]/ZIP Co de Phone Number [facility] [address] [place] [address], * Salicylate level (03/03/2025 9:46 PM EDT) Salicylate Level 5.4 2.0 - 29.0 mg/dL LAB CHEMISTRY METHOD 03/03/2025 10:44 PM EDT [facility] Blood Venous blood specimen / Unknown Venipuncture / Unknown 03/03/2025 9:46 PM EDT 03/03/2025 10:03 PM EDT Gilmar Casarez MD LAB BLOOD ORDERABLES Final Resu lt Performing Organization Address City/[facility]/ZIP Co de Phone Number [facility] [address] [place] [address], [place] [phone] * (ABNORMAL) Acetaminophen level (03/03/2025 9:46 PM EDT) Acetaminophen Level <2.0(L) 10.0 - 30.0 mcg/mL LAB CHEMISTRY METHOD 03/03/2025 10:44 PM EDT [facility] Blood Venous blood specimen / Unknown Venipuncture / Unknown 03/03/2025 9:46 PM EDT 03/03/2025 10:03 PM EDT Gilmar Casarez MD LAB BLOOD ORDERABLES Final Resu lt Performing Organization Address [facility]/State/ZIP Co de Phone Number [facility] [address] [place] [address], [place] [phone] * Ethanol (03/03/2025 9:46 PM EDT) Ethanol Level <3 0 - 10 mg/dL LAB CHEMISTRY METHOD 03/03/2025 10:44 PM EDT [facility] Blood Venous blood specimen / Unknown Venipuncture / Unknown 03/03/2025 9:46 PM EDT 03/03/2025 10:03 PM EDT Gilmar Casarez MD LAB BLOOD ORDERABLES Final Resu lt Performing Organization Address [facility]/ZIP Co de Phone Number [facility] [address] [place] [address], [place] [phone] * (ABNORMAL) Comprehensive metabolic panel (03/03/2025 9:46 PM EDT) Sodium 139 133 - 145 mmol/L LAB CHEMISTRY METHOD 03/03/2025 10:44 PM EDT [facility] Potassium 3.1(L) 3.5 - 5.5 mmol/L LAB CHEMISTRY METHOD 03/03/2025 10:44 PM EDT [facility] Chloride 105 96 - 110 mmol/L LAB CHEMISTRY METHOD 03/03/2025 10:44 PM EDT [facility] CO2 29 21 - 32 mmol/L LAB CHEMISTRY METHOD 03/03/2025 10:44 PM EDT [facility] Anion Gap 5 3 - 11 LAB CHEMISTRY METHOD 03/03/2025 10:44 PM [facility] Glucose 108(H) 70 - 100 mg/dL LAB CHEMISTRY METHOD 03/03/2025 10:44 PM [facility] BUN 8 5 - 25 mg/dL LAB CHEMISTRY METHOD 03/03/2025 10:44 PM [facility] Creatinine 0.74 0.50 - 1.10 mg/dL LAB CHEMISTRY METHOD 03/03/2025 10:44 PM [facility] eGFR 105 >=60 mL/min/1. 73m2 LAB CHEMISTRY METHOD 03/03/2025 10:44 PM [facility] Comment:Calculation based on the??Chronic Kidney Disease Epidemiology Collaboration (CKD-EPI) equation refit??without adjustment for race. BUN/Creatinine Ratio 10.8 LAB CHEMISTRY METHOD 03/03/2025 10:44 PM [facility] Calcium 9.3 8.5 - 10.5 mg/dL LAB CHEMISTRY METHOD 03/03/2025 10:44 PM [facility] AST (SGOT) 21 10 - 42 unit/L LAB CHEMISTRY METHOD 03/03/2025 10:44 PM [facility] ALT (SGPT) 16 10 - 60 unit/L LAB CHEMISTRY METHOD 03/03/2025 10:44 PM [facility] Alkaline Phosphatase 82 42 - 121 unit/L LAB CHEMISTRY METHOD 03/03/2025 10:44 PM [facility] Total Protein 7.1 6.0 - 8.0 g/dL LAB CHEMISTRY METHOD 03/03/2025 10:44 PM [facility] Albumin 3.6 3.2 - 5.0 g/dL LAB CHEMISTRY METHOD 03/03/2025 10:44 PM [facility] Total Bilirubin 0.4 0.0 - 1.4 mg/dL LAB CHEMISTRY METHOD 03/03/2025 10:44 PM [facility] Blood Venous blood specimen / Unknown Venipuncture / Unknown 03/03/2025 9:46 PM EDT 03/03/2025 10:03 PM EDT us Gilmar Casarez MD LAB BLOOD ORDERABLES Final Resu lt Performing Organization Address [facility] Co de Phone Number [facility] [address] [place] [address], [place] [phone] * Methadone, urine (03/03/2025 9:24 PM EDT) Methadone Screen, Urine Negative Negative LAB CHEMISTRY METHOD 03/03/2025 10:10 PM EDT [facility] Comment: Assay cutoff 300 ng/mL Semi-quantitative [...] ORDERABLES Final Resu lt Performing Organization Address [facility]/ZIP Co de Phone Number [facility] [address] [place] [address], [place] [phone] * Phencyclidine, urine (03/03/2025 9:24 PM EDT) PCP Scrn, Ur Negative Negative LAB CHEMISTRY METHOD 03/03/2025 10:10 PM EDT [facility] Comment: Assay cutoff 25 ng/mL Semi-quantitative assay for screening purposes only. Unconfirmed screening result should not be used for non-medical purposes. *ALTERNATE METHOD CONFIRMATION DONE UPON REQUEST ONLY* Urine Urine specimen obtained by clean catch procedure / Unknown Non-blood Collection / Unknown 03/03/2025 9:24 PM EDT 03/03/2025 9:41 PM EDT Gilmar Casarez MD LAB URINE ORDERABLES Final Resu lt [facility] [address] [place] [address], [place] [phone] * Buprenorphine screen, urine (03/03/2025 9:24 PM EDT) Buprenorphine Screen Urine Negative Negative LAB CHEMISTRY METHOD 03/03/2025 10:10 PM EDT [facility] Urine Urine specimen obtained by clean catch procedure / Unknown Non-blood Collection / Unknown 03/03/2025 9:24 PM EDT 03/03/2025 9:41 PM EDT Narrative [facility] - 03/03/2025 10:10 PM EDT Assay cutoff 5 ng/mL Semi-quantitative assay for screening purposes only. Unconfirmed screening result should not be used for non-medical purposes. *ALTERNATE METHOD CONFIRMATION DONE UPON REQUEST ONLY* Gilmar Casarez MD LAB URINE ORDERABLES Final Resu lt Performing Organization Address City/[facility]/ZIP Co de Phone Number [facility] [address] [place] [address], [place] [phone] * (ABNORMAL) Drug abuse screen 8a panel, urine (03/03/2025 9:24 PM EDT) Amphetamine Screen, Ur Negative Negative LAB CHEMISTRY METHOD 5 10:10 PM EDT [facility] Comment:Certain OTC medicati ons containing ephedrine, phenylephrine, pseudoephedrine and phenylpropanolamine can cause false positive results. Barbiturate Screen, Ur Negative Negative LAB CHEMISTRY METHOD 5 10:10 PM EDT [facility] Benzodiazepine Screen, Ur Negative Negative LAB CHEMISTRY METHOD 5 10:10 PM EDT [facility] Cocaine Screen, Ur Negative Negative LAB CHEMISTRY METHOD 5 10:10 PM EDT [facility] Opiate Screen, Ur Negative Negative LAB CHEMISTRY METHOD 5 10:10 PM EDT [facility] Cannabinoid (THC) Screen, Ur Positive(A ) Negative LAB CHEMISTRY METHOD 5 10:10 PM EDT [facility] Comment:Specimens from patie nts taking pantoprazole sodium (Protonix) have been shown to produce false positive results. Oxycodone Screen, Ur Negative Negative LAB CHEMISTRY METHOD 5 10:10 PM EDT [facility] Fentanyl, Ur Negative Negative LAB CHEMISTRY METHOD 5 10:10 PM T [facility] Urine Urine specimen obtained by clean catch procedure / Unknown Non-blood Collection / Unknown 03/03/2025 9:24 PM EDT 03/03/2025 9:41 PM EDT Narrative [facility] - 03/03/2025 10:10 PM EDT Assay [...] MD LAB URINE ORDERABLES Final Resu lt [facility]) [facility] [address] [place] [address], documented in this encounter Visit Diagnoses Diagnosis Alcohol withdrawal seizure (CMS/HCC V24, CMS/HCC V28)- Primary Alcohol withdrawal Suicidal ideation Alcohol use disorder Alcohol withdrawal seizure with complication (CMS/[facility] V24, [facility] V28) Hypomagnesemia Disorders of magnesium metabolism Hypokalemia Hypopotassemia Homeless Lack of housing documented in this encounter Admitting Diagnoses Diagnosis Alcohol withdrawal seizure ([facility] V24, [facility] V28) Alcohol withdrawal documented in this encounter Administered Medications Inactive Administered Medications - up to 3 most recent administrations Medication Order MAR Action Action Date Dose Rate Site acetaminophen (TYLENOL) tablet 650 mg 650 mg, oral, Every 4 hours PRN, mild pain, headaches, fever - temperature GREATER than 38 C (100.4 F), Starting on Mon03/04/25 at 0252 Given 03/06/2025 10:33 AM EDT 650 mg Given 03/04/2025 10:39 AM EDT 650 mg chlordiazePOXIDE (LIBRIUM) capsule 100 mg 100 mg, oral, Every 2 hours PRN, withdrawal, CIWA-Ar GREATER than or EQUAL to 19 AND seizure OR hallucination., Starting on Mon03/04/25 at 1230, Notify provider Re-assess CIWA-Ar in 1 hour Hold dose and notify provider for BP LESS than 90/60, RR LESS than 10 per minute, marked somnolence, pooling of secretions, intoxicated symptoms (ataxia, slurred speech.) Notify provider if 300 mg is given within 24 hours. chlordiazePOXIDE (LIBRIUM) capsule 25 mg 25 mg, oral, Every 2 hours PRN, withdrawal, CIWA-Ar 6-18, Starting on Mon03/04/25 at 1230, Re-assess CIWA-Ar in 1 hour Hold dose and notify provider for BP LESS than 90/60, RR LESS than 10 per minute, marked somnolence, pooling of secretions, intoxicated symptoms (ataxia, slurred speech.) Notify provider if 300 mg is given within 24 hours. chlordiazePOXIDE (LIBRIUM) capsule 50 mg 50 mg, oral, Every 2 hours PRN, withdrawal, CIWA-Ar GREATER than or EQUAL to 19 WITHOUT evidence of seizure or hallucinations, Starting on Mon03/04/25 at 1230, Re-assess CIWA-Ar in 1 hour Hold dose and notify provider for BP LESS than 90/60, RR LESS than 10 per minute, marked somnolence, pooling of secretions, intoxicated symptoms (ataxia, slurred speech.) Notify provider if 300 mg is given within 24 hours. divalproex (DEPAKOTE) DR tablet 500 mg 500 mg, oral, Every 12 hours scheduled, First dose on Mon03/05/25 at 2100, HAZARDOUS Drug Precautions - Low Risk (Category A/NIOSH Group 3) Reproductive Risk Only: - Do NOT split, crush, or open dosage units - Single pair of ASTM standard [id number] certified chemotherapy gloves - Eye protection (goggles or face shield) required only with a potential for facial contact (i.e. concern for spitting or vomiting of the dose during or after administration) Given 03/06/2025 9:58 AM EDT 500 mg Given 03/05/2025 8:51 PM EDT 500 mg enoxaparin (LOVENOX) injection 40 mg 40 mg, subcutaneous, Every 24 hours scheduled, First dose on Mon03/04/25 at 0900, Indication: VTE/PE Prophylaxis Given 03/04/2025 10:39 AM EDT 40 mg Left Lower Abdomen folic acid (FOLVITE) tablet 1 mg 1 mg, oral, Daily, First dose on Mon03/04/25 at 0900 Given 03/06/2025 9:58 AM EDT 1 mg Given 03/05/2025 8:19 AM EDT 1 mg Given 03/04/2025 10:39 AM EDT 1 mg lidocaine 4 % patch 1 patch 1 patch, Topical, Administer over 12 Hours, Daily, First dose on Mon03/06/25 at 1145, Apply to low back and remove at bedtime Patch Applied 03/06/2025 11:39 AM EDT 1 patch Left Upper Hip LORazepam (ATIVAN) 2 mg/mL injection - ADS Override Pull Starting on Mon03/04/25 at 0138, For 1 dose, Created by cabinet override Prior to IV use, lorazepam injection should be DILUTED with an equal volume of compatible solution; Rate of administration should NOT exceed 2 mg/min. Given 03/04/2025 1:43 AM EDT 2 mg magnesium sulfate 2 gram/50 mL (4 %) IVPB 2 g 2 g, intravenous, at 25 mL/hr, Administer over 2 Hours, Once, On Mon03/04/25 at 0230, For 1 dose New Bag 03/04/2025 2:47 AM EDT 2 g 25 mL/hr naltrexone (DEPADE) tablet 25 mg 25 mg, oral, Once, On Mon03/05/25 at 1130, For 1 dose Given 03/05/2025 11:20 AM EDT 25 mg naltrexone (DEPADE) tablet 50 mg 50 mg, oral, Daily, First dose on Mon03/06/25 at 0900 Given 03/06/2025 9:58 AM EDT 50 mg ondansetron (PF) (ZOFRAN) injection 4 mg 4 mg, intravenous, Every 8 hours PRN, vomiting, nausea, Starting on Mon03/04/25 at 0252, -ONLY give IV if patient is unable to take orally. -If inadequate response within 30 minutes, proceed to next-line agent or contact provider if no further options ordered. ondansetron ODT (ZOFRAN-ODT) disintegrating tablet 4 mg 4 mg, oral, Every 8 hours PRN, vomiting, nausea, Starting on Mon03/04/25 at 0252, -Give IV if patient is unable to take orally. -If inadequate response within 30 minutes, proceed to next-line agent or contact provider if no further options ordered. For ODT tablets: -Do not remove from blister pack until just before administering. -Patient should allow tablet to dissolve on tongue. potassium chloride (KLOR-CON M20) CR tablet 40 mEq 40 mEq, oral, Once, On Mon03/06/25 at 1145, For 1 dose, Tablet may be swallowed whole (do not crush/chew/suck on) OR broken in half and each half swallowed separately OR dissolved (whole tablet) in ~4 ounces of water (allow ~2 minutes to dissolve, stir well and administer immediately). Given 03/06/2025 11:39 AM EDT 40 mEq potassium chloride 10 mEq/100 mL IVPB 10 mEq 10 mEq, intravenous, at 100 mL/hr, Administer over 1 Hours, Every 1 hour, First dose on Mon03/04/25 at 0230, For 6 doses New Bag 03/04/2025 6:43 AM EDT 10 mEq 100 mL/hr New Bag 03/04/2025 5:34 AM EDT 10 mEq 100 mL/hr New Bag 03/04/2025 3:56 AM EDT 10 mEq 100 mL/hr sertraline (ZOLOFT) tablet 25 mg 25 mg, oral, Nightly, First dose on Mon03/04/25 at 2100 Given 03/04/2025 9:56 PM EDT 25 mg sertraline (ZOLOFT) tablet 25 mg 25 mg, oral, Nightly, First dose (after last modification) on Mon03/05/25 at 2100 Given 03/05/2025 8:45 PM EDT 25 mg sodium chloride 0.9 % flush 10 mL 10 mL, intravenous, 2 times daily, First dose on Mon03/04/25 at 0253 Given 03/06/2025 9:58 AM EDT 10 mL Given 03/05/2025 8:51 PM EDT 10 mL Given 03/05/2025 8:19 AM EDT 10 mL sodium chloride 0.9 % flush 10 mL 10 mL, intravenous, As needed, line care, Starting on Mon03/04/25 at 0252 thiamine (VITAMIN B-1) tablet 100 mg 100 mg, oral, Daily, First dose on Mon03/04/25 at 0900 Given 03/06/2025 9:58 AM EDT 100 mg Given 03/05/2025 8:19 AM EDT 100 mg Given 03/04/2025 10:39 AM EDT 100 mg documented in this encounter Discontinued Medications Medication Sig Discontinue Reason Start Date End Da te cloNIDine (CATAPRES) 0.1 mg tablet Take 1 tablet (0.1 mg total) by mouth 1 (one) time each day. 11/21/2024 03/04/2025 hydrOXYzine pamoate (VISTARIL) 50 mg capsule Take 1 capsule (50 mg total) by mouth every 4 (four) hours if needed for anxiety. 12/17/2024 03/04/2025 melatonin 3 mg tablet Take 2 tablets (6 mg total) by mouth at bedtime as needed. 12/17/2024 03/04/2025 mirtazapine (REMERON) 30 mg tablet Take 1 tablet (30 mg total) by mouth at bedtime. at bedtime. 12/17/2024 03/04/2025 naltrexone (DEPADE) 50 mg tablet Take 1 tablet (50 mg total) by mouth 1 (one) time each day. 11/21/2024 03/04/2025 OLANZapine (ZyPREXA) 5 mg tablet Take 1 tablet (5 mg total) by mouth 2 (two) times a day. 12/17/2024 03/04/2025 hydrOXYzine HCL (ATARAX) 25 mg tablet Take 1 tablet (25 mg total) by mouth every 6 (six) hours if needed for anxiety. 11/21/2024 03/04/2025 documented as of this encounter Historical Medications * This list may reflect changes made after this encounter. Ventolin HFA 90 mcg/actuation inhaler Inhale 2 puffs by mouth every 2 (two) hours if needed for wheezing. 12/17/2024 hydrOXYzine HCL (ATARAX) 25 mg tablet Take 1 tablet (25 mg total) by mouth every 6 (six) hours if needed for anxiety. 11/21/2024 03/04/2025 naltrexone (DEPADE) 50 mg tablet Take 1 tablet (50 mg total) by mouth 1 (one) time each day. 11/21/2024 03/04/2025 OLANZapine (ZyPREXA) 5 mg tablet Take 1 tablet (5 mg total) by mouth 2 (two) times a day. 12/17/2024 03/04/2025 mirtazapine (REMERON) 30 mg tablet Take 1 tablet (30 mg total) by mouth at bedtime. at bedtime. 12/17/2024 03/04/2025 melatonin 3 mg tablet Take 2 tablets (6 mg total) by mouth at bedtime as needed. 12/17/2024 03/04/2025 hydrOXYzine pamoate (VISTARIL) 50 mg capsule Take 1 capsule (50 mg total) by mouth every 4 (four) hours if needed for anxiety. 12/17/2024 03/04/2025 cloNIDine (CATAPRES) 0.1 mg tablet Take 1 tablet (0.1 mg total) by mouth 1 (one) time each day. 11/21/2024 03/04/2025 added in this encounter Active and Recently Administered Medications Times are shown in EDT. Scheduled Medication Order 03/04/2025 03/05/2025 03/06/2025 divalproex (DEPAKOTE) DR tablet 500 mg 500 mg, oral, Every 12 hours scheduled, First dose on Mon03/05/25 at 2100, HAZARDOUS Drug Precautions - Low Risk (Category A/NIOSH Group 3) Reproductive Risk Only: - Do NOT split, crush, or open dosage units - Single pair of ASTM standard D6978 certified chemotherapy gloves - Eye protection (goggles or face shield) required only with a potential for facial contact (i.e. concern for spitting or vomiting of the dose during or after administration) 2050 (Given - Provider: Alayna West RN) 0958 (Given - Provider: Leanne Cruz RN) enoxaparin (LOVENOX) injection 40 mg 40 mg, subcutaneous, Every 24 hours scheduled, First dose on Mon03/04/25 at 0900, Indication: VTE/PE Prophylaxis 1039 (Given - Provider: Joanna Estrada RN) 0814 (Not Given - Provider: Eunice Savage RN - Reason: Patient/Resident/Age nt refused - education provided ) 1000 (Not Given - Provider: Leanne Cruz RN - Reason: Patient/Resident/Agent refused - education provided ) folic acid (FOLVITE) tablet 1 mg 1 mg, oral, Daily, First dose on Mon03/04/25 at 0900 1039 (Given - Provider: Joanna Estrada RN) 0819 (Given - Provider: Eunice Savage, ANNABELLA) 0958 (Given - Provider: Leanne Cruz RN) lidocaine 4 % patch 1 patch 1 patch, Topical, Administer over 12 Hours, Daily, First dose on Mon03/06/25 at 1145, Apply to low back and remove at bedtime 1139 (Patch Applied - Provider: Leanne Cruz RN)1220 (Due: Patch Removed - Provider: Automatic Discharge Provider - Comment: Time automatically adjusted from order being discontinued) magnesium sulfate 2 gram/50 mL (4 %) IVPB 2 g (COMPLETED) 2 g, intravenous, at 25 mL/hr, Administer over 2 Hours, Once, On Mon03/04/25 at 0230, For 1 dose 0247 (New Bag - Provider: Kenisha Calix RN)0500 (Stopped - Provider: Lucero Leslie RN) naltrexone (DEPADE) tablet 25 mg (COMPLETED) 25 mg, oral, Once, On Mon03/05/25 at 1130, For 1 dose 1120 (Given - Provider: Eunice Savage, ANNABELLA) naltrexone (DEPADE) tablet 50 mg 50 mg, oral, Daily, First dose on Mon03/06/25 at 0900 0958 (Given - Provid er: Leanne Cruz RN) potassium chloride (KLOR-CON M20) CR tablet 40 mEq (COMPLETED) 40 mEq, oral, Once, On Mon03/06/25 at 1145, For 1 dose, Tablet may be swallowed whole (do not crush/chew/suck on) OR broken in half and each half swallowed separately OR dissolved (whole tablet) in ~4 ounces of water (allow ~2 minutes to dissolve, stir well and administer immediately). 1139 (Given - Provid er: Leanne Cruz RN) potassium chloride 10 mEq/100 mL IVPB 10 mEq () 10 mEq, intravenous, at 100 mL/hr, Administer over 1 Hours, Every 1 hour, First dose on Mon03/04/25 at 0230, For 6 doses 0240 (New Bag - Provider: Kenisha Calix RN)0356 (New Bag - Provider: Kenisha Calix RN)0356 (Stopped - Provider: Kenisha Calix RN)0403 (Stopped - Provider: Kenisha Calix RN)0534 (New Bag - Provider: Kenisha Calix RN)0630 (Due)0641 (Stopped - Provider: Lucero Leslie RN)0643 (New Bag - Provider: Lucero Leslie RN - Comment: pt care)0730 (Not Given - Provider: Joanna Estrada RN - Reason: See Provider Order)0735 (Stopped - Provider: Nina Sewell RN) sertraline (ZOLOFT) tablet 25 mg (CANCELED) 25 mg, oral, Nightly, First dose on Mon03/04/25 at 2100 2156 (Given - Provider: Rose Gardner, ANNABELLA) sertraline (ZOLOFT) tablet 25 mg 25 mg, oral, Nightly, First dose (after last modification) on Mon03/05/25 at 2100 2045 (Given - Provider: Alayna West RN) sodium chloride 0.9 % flush 10 mL(Linked Group 1) 10 mL, intravenous, 2 times daily, First dose on Mon03/04/25 at 0253 0252 (Not Given - Provider: Kenisha Calix RN - Reason: Other - Comment: iv fluids running)1039 (Given - Provider: Joanna Estrada RN)2157 (Given - Provider: Rose Gardner RN) 0819 (Given - Provider: Eunice Savage RN)2050 (Given - Provider: Alayna West RN) 0958 (Given - Provider: Leanne Cruz RN) thiamine (VITAMIN B-1) tablet 100 mg 100 mg, oral, Daily, First dose on Mon03/04/25 at 0900 1039 (Given - Provider: Joanna Estrada RN) 0819 (Given - Provider: Eunice Savage RN) 0958 (Given - Provider: Leanne Cruz RN) PRN Medication Order 03/04/2025 03/05/2025 03/06/2025 acetaminophen (TYLENOL) tablet 650 mg 650 mg, oral, Every 4 hours PRN, mild pain, headaches, fever - temperature GREATER than 38 C (100.4 F), Starting on Mon03/04/25 at 0252 1039 (Given - Provider: Joanna Estrada RN) 1033 (Given - Provider: Leanne Cruz RN) chlordiazePOXIDE (LIBRIUM) capsule 100 mg(Linked Group 2) 100 mg, oral, Every 2 hours PRN, withdrawal, CIWA-Ar GREATER than or EQUAL to 19 AND seizure OR hallucination., Starting on Mon03/04/25 at 1230, Notify provider Re-assess CIWA-Ar in 1 hour Hold dose and notify provider for BP LESS than 90/60, RR LESS than 10 per minute, marked somnolence, pooling of secretions, intoxicated symptoms (ataxia, slurred speech.) Notify provider if 300 mg is given within 24 hours. chlordiazePOXIDE (LIBRIUM) capsule 25 mg(Linked Group 2) 25 mg, oral, Every 2 hours PRN, withdrawal, CIWA-Ar 6-18, Starting on Mon03/04/25 at 1230, Re-assess CIWA-Ar in 1 hour Hold dose and notify provider for BP LESS than 90/60, RR LESS than 10 per minute, marked somnolence, pooling of secretions, intoxicated symptoms (ataxia, slurred speech.) Notify provider if 300 mg is given within 24 hours. chlordiazePOXIDE (LIBRIUM) capsule 50 mg(Linked Group 2) 50 mg, oral, Every 2 hours PRN, withdrawal, CIWA-Ar GREATER than or EQUAL to 19 WITHOUT evidence of seizure or hallucinations, Starting on Mon03/04/25 at 1230, Re-assess CIWA-Ar in 1 hour Hold dose and notify provider for BP LESS than 90/60, RR LESS than 10 per minute, marked somnolence, pooling of secretions, intoxicated symptoms (ataxia, slurred speech.) Notify provider if 300 mg is given within 24 hours. ondansetron (PF) (ZOFRAN) injection 4 mg(Linked Group 3) 4 mg, intravenous, Every 8 hours PRN, vomiting, nausea, Starting on Mon03/04/25 at 0252, -ONLY give IV if patient is unable to take orally. -If inadequate response within 30 minutes, proceed to next-line agent or contact provider if no further options ordered. ondansetron ODT (ZOFRAN-ODT) disintegrating tablet 4 mg(Linked Group 3) 4 mg, oral, Every 8 hours PRN, vomiting, nausea, Starting on Mon03/04/25 at 0252, -Give IV if patient is unable to take orally. -If inadequate response within 30 minutes, proceed to next-line agent or contact provider if no further options ordered. For ODT tablets: -Do not remove from blister pack until just before administering. -Patient should allow tablet to dissolve on tongue. sodium chloride 0.9 % flush 10 mL(Linked Group 1) 10 mL, intravenous, As needed, line care, Starting on Mon03/04/25 at 0252 No Frequency Medication Order 03/04/2025 03/05/2025 03/06/2025 LORazepam (ATIVAN) 2 mg/mL injection - ADS Override Pull (COMPLETED) Starting on Mon03/04/25 at 0138, For 1 dose, Created by cabinet override Prior to IV use, lorazepam injection should be DILUTED with an equal volume of compatible solution; Rate of administration should NOT exceed 2 mg/min. 0143 (Given - Provider: Nena Barnes RN) Linked Groups Order Group 1: Insert peripheral IV (CANCELED) STAT, Once, On Mon03/04/25 at 0253, For 1 occurrence And Maintain IV access (CANCELED) Until discontinued, Starting on Mon03/04/25 at 0253, Until Specified And Saline lock IV (CANCELED) Routine, Once, On Mon03/04/25 at 0253, For 1 occurrence And sodium chloride 0.9 % flush 10 mLJump to med 10 mL, intravenous, 2 times daily, First dose on Mon03/04/25 at 0253 And sodium chloride 0.9 % flush 10 mLJump to med 10 mL, intravenous, As needed, line care, Starting on Mon03/04/25 at 0252 Group 2: chlordiazePOXIDE (LIBRIUM) capsule 25 mgJump to med 25 mg, oral, Every 2 hours PRN, withdrawal, CIWA-Ar 6-18, Starting on Mon03/04/25 at 1230, Re-assess CIWA-Ar in 1 hour Hold dose and notify provider for BP LESS than 90/60, RR LESS than 10 per minute, marked somnolence, pooling of secretions, intoxicated symptoms (ataxia, slurred speech.) Notify provider if 300 mg is given within 24 hours. Or chlordiazePOXIDE (LIBRIUM) capsule 50 mgJump to med 50 mg, oral, Every 2 hours PRN, withdrawal, CIWA-Ar GREATER than or EQUAL to 19 WITHOUT evidence of seizure or hallucinations, Starting on Mon03/04/25 at 1230, Re-assess CIWA-Ar in 1 hour Hold dose and notify provider for BP LESS than 90/60, RR LESS than 10 per minute, marked somnolence, pooling of secretions, intoxicated symptoms (ataxia, slurred speech.) Notify provider if 300 mg is given within 24 hours. Or chlordiazePOXIDE (LIBRIUM) capsule 100 mgJump to med 100 mg, oral, Every 2 hours PRN, withdrawal, CIWA-Ar GREATER than or EQUAL to 19 AND seizure OR hallucination., Starting on Mon03/04/25 at 1230, Notify provider Re- assess CIWA-Ar in 1 hour Hold dose and notify provider for BP LESS than 90/60, RR LESS than 10 per minute, marked somnolence, pooling of secretions, intoxicated symptoms (ataxia, slurred speech.) Notify provider if 300 mg is given within 24 hours. Group 3: ondansetron ODT (ZOFRAN-ODT) disintegrating tablet 4 mgJump to med 4 mg, oral, Every 8 hours PRN, vomiting, nausea, Starting on Mon03/04/25 at 0252, -Give IV if patient is unable to take orally. -If inadequate response within 30 minutes, proceed to next-line agent or contact provider if no further options ordered. For ODT tablets: -Do not remove from blister pack until just before administering. -Patient should allow tablet to dissolve on tongue. Or ondansetron (PF) (ZOFRAN) injection 4 mgJump to med 4 mg, intravenous, Every 8 hours PRN, vomiting, nausea, Starting on Mon03/04/25 at 0252, -ONLY give IV if patient is unable to take orally. -If inadequate response within 30 minutes, proceed to next-line agent or contact provider if no further options ordered. documented in this encounter Orders Medications Ordered That Tyrel ht Not Have Been Administered Count Last Ordered Date First Ordered Date naltrexone (DEPADE) tablet 25 mg 03/05/20 25 sertraline (ZOLOFT) tablet 25 mg 03/05/20 25 chlordiazePOXIDE (LIBRIUM) capsule 100 mg 03/04/2025 chlordiazePOXIDE (LIBRIUM) capsule 25 mg 03/04/2025 chlordiazePOXIDE (LIBRIUM) capsule 50 mg 03/04/2025 LORazepam (ATIVAN) injection 2 mg 025 LORazepam (ATIVAN) injection 3 mg LORazepam (ATIVAN) injection 4 mg 025 ondansetron (PF) (ZOFRAN) injection 4 mg 03/04/2025 ondansetron ODT (ZOFRAN-ODT) disintegrating tablet 4 mg 1 03/04/2025 sodium chloride 0.9 % flush 10 mL 025 thiamine (VITAMIN B-1) injection 100 mg 1 0 03/04/2025 Consult Count Last Ordered Date First Orde red Date IP CONSULT TO ADDICTION MEDICINE 2 03/04/20 IP CONSULT TO NEUROLOGY 1 03/04/2025 IP CONSULT TO PSYCHIATRY 1 03/04/2025 IP CONSULT TO SOCIAL WORK 1 03/04/2025 IP CONSULT TO ACCESS LEAD 1 03/03/2025 Admission Count Last Ordered Date First Orde red Date ADMIT TO INPATIENT 1 03/04/2025 Transfer Count Last Ordered Date First Orde red Date ED TO FLOOR BED REQUEST 1 03/04/2025 TRANSFER PATIENT TO NEW UNIT 1 03/04/2025 Discharge Count Last Ordered Date First Orde red Date DISCHARGE PATIENT 1 03/06/2025 documented in this encounter 

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
[2025-03-06 20:45] VITALS: BP 148/67; PULSE 66; RESP 16; TEMP 36.6; O2SAT 99
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
[2025-03-07 07:40] VITALS: BP 119/56; PULSE 59; RESP 14; TEMP 36.4; O2SAT 92
[2025-03-07 09:00] LABS: Basophils Percent Auto 0.6 % (0-2); Eosinophils Absolute Auto 0.1 X10*3/uL (0.0-0.4); Eosinophils Percent Auto 4.4 % (0-4); Hematocrit 39.4 % (37.0-47.0); Lymphocytes Percent Auto 63.4 % (20-40); MANUAL DIFF FLAG SCAN; Mean Corpuscular Hemoglobin 29.9 pg (27.0-33.0); Mean Corpuscular Volume 90.6 fL (80.0-98.0); Mean Platelet Volume 10.9 fL (9.4-12.3); Monocytes Absolute Auto 0.3 X10*3/uL (0.1-1.2); Neutrophils Absolute Auto 0.7 x10*3/uL (2.0-8.3); Neutrophils Percent Auto 21.6 % (45-73); Platelet Count 226 X10*3/uL (160-400); Red Blood Count 4.35 X10*6/uL (4.20-5.50); Red Cell Distribution Width 13.1 % (11.0-16.0); SCAN SMEAR FLAG 1; White Blood Count 3.2 X10*3/uL (4.8-10.8)
[2025-03-07 09:07] VITALS: O2SAT 96
[2025-03-07 09:11] LABS: Estimated Average Glucose 94 mg/dL; Hemoglobin A1C 104.9268 umol/L; Hemoglobin A1c % 4.9 % (<6.0); Total Hemoglobin (HGBA1C) 3450.4588 umol/L
[2025-03-07 09:20] LABS: Cholesterol 279 mg/dL (<200); HDL Cholesterol 53 mg/dL (>40); LDL Cholesterol Calculated 205 mg/dL (<100); Triglycerides 105 mg/dL (<150)
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
[2025-03-07 09:32] LABS: SLIDE REVIEW VERIFIED
[2025-03-07 09:37] LABS: Thyroid Stimulating Hormone 0.12 uIU/mL (0.32-4.0)
[2025-03-07 09:49] LABS: Vitamin B12 968 pg/mL (200-900)
[2025-03-07] MEDS: Sertraline HCL 50 MG TABLET PO (12:35)
[2025-03-07] MEDS: Divalproex Sodium 500 MG TABLET.DR PO (12:35)
[2025-03-07 20:00] VITALS: BP 126/61; PULSE 74; RESP 16; TEMP 37.3; O2SAT 98
[2025-03-07] MEDS: Divalproex Sodium ER 500 MG TAB.ER.24H 1000 MG PO (20:13)
[2025-03-08 08:00] VITALS: BP 121/58; PULSE 73; RESP 14; TEMP 36.3; O2SAT 98
[2025-03-08] MEDS: Sertraline HCL 50 MG TABLET PO (08:59)
--- NOTE | 2025-03-08 10:45 | HO.PSYCHPN ---
Subjective Subjective Date of Service: 03/08/25 Reason For Visit: SI Subjective Notes: Conditional Voluntary Interim History: Pt slept 5hrs. She continues to report mood is depressed, hopeless. but feels restless here in the unit, out of place, not knowing what to do. She misses her adult children with whom she has been in communication while inpt. She denies SI/HI. She was recently started on depakote while at [facility] and seen by neurology, due to abnormal eeg with recommendation to follow up in 3 weeks with neurology outpatient. Depakote levels checked prior to bedtime dose, 49, ammonia and LFT wnl. Review of Systems Review of Systems Negative except for that which is stated in the HPI. Mental Status Exam Mental Status Exam Narrative: Appearance: wearing hospital gown, fair hygiene, in NAD Behavior: cooperative Psychomotor: no tremors, no agitation or retardation noted Speech: clear, normal rate/rhythm/volume, spontaneous TP: linear TC: worried about housing, drinking Mood: a little down Affect: congruent, non-labile SI: denies HI: denies VH/AH: none Delusions: none Insight/judgment: fair Memory/cog: alert, oriented x 3. grossly intact to conversational testing. Diagnostics Vital Signs (24Hr): Vital Signs - 24 hr 03/07/25 20:00 03/08/25 08:00 Temperature 99.1 F 97.3 F Pulse Rate 74 73 Respiratory Rate 16 14 Blood Pressure 126/61 121/58 L Pulse Oximetry 98 98 Oxygen Delivery Method Room Air Room Air BMI result Body Mass Index 29.6 Labs 03/07/25 08:17 03/08/25 18:18 Labs: Laboratory Results - last 48 hr 03/06/25 03/07/25 13:14 08:17 WBC 3.2 L RBC 4.35 Hgb 13.0 Hct 39.4 MCV 90.6 MCH 29.9 MCHC 33.0 RDW 13.1 Plt Count 226 MPV 10.9 Immature Gran % (Auto) 0.0 Neut % (Auto) 21.6 L Lymph % (Auto) 63.4 H [place] % (Auto) 10.0 Eos % (Auto) 4.4 H Baso % (Auto) 0.6 Lymph # (Auto) 2.0 [place] # (Auto) 0.3 Eos # (Auto) 0.1 Baso # (Auto) 0.0 Abs Immat Gran (auto) 0.00 Absolute Neuts (auto) 0.7 L Absolute Nucleated RBC 0.000 Nucleated RBC % (auto) 0.0 Smear Tech's Comments VERIFIED Sodium 138 Potassium 3.4 Chloride 99 Carbon Dioxide 28 Anion Gap 14 BUN 7 L Creatinine 0.72 Estim Creat Clear Calc TNP Estimated GFR > 60 Random Glucose 111 Estimat Average Glucose 94 Hemoglobin A1c % 4.9 Calcium 9.8 D Total Bilirubin 0.6 AST 22 ALT 13 Alkaline Phosphatase 78 Total Protein 8.3 H Albumin 4.4 Triglycerides 105 Cholesterol 279 H LDL Cholesterol, Calc 205 H HDL Cholesterol 53 Vitamin B12 968 H Folate 14.0 TSH 0.12 L Free T4 1.30 Medications Medications Current Medications Acetaminophen (Acetaminophen 325 Mg Tablet) 650 mg PO Q6H PRN PRN Reason: Headache/Pain, Scale 1-10 Al Hydroxide/Mg Hydroxide (Magnesium Hydrox/Alum Hydrox 30 Ml Oral.Susp) 30 ml PO Q6H PRN PRN Reason: Heartburn/Nausea Clonidine HCl (Clonidine Hcl 0.1 Mg Tablet) 0.1 mg PO BID PRN; Protocol PRN Reason: Anxiety Divalproex Sodium (Divalproex Sodium Er 500 Mg Tab.Er.24h) 1,000 mg PO BEDTIME [facility] Last Admin: 03/07/25 20:13 Dose: 1,000 mg Hydroxyzine HCl (Hydroxyzine Hcl 25 Mg Tablet) 25 mg PO Q6H PRN PRN Reason: mild anxiety Magnesium Hydroxide (Milk Of Magnesia 30 Ml Oral.Susp) 30 ml PO DAILY PRN PRN Reason: Constipation Nicotine Polacrilex (Nicotine Polacrilex 2 Mg Gum) 4 mg BUCCAL Q2H PRN PRN Reason: Nicotine Cravings Sertraline HCl (Sertraline Hcl 50 Mg Tablet) 50 mg PO DAILY [facility] Last Admin: 03/08/25 08:59 Dose: 50 mg Trazodone HCl (Trazodone Hcl 50 Mg Tablet) 50 mg PO BEDTIME MRX1 PRN PRN Reason: Insomnia Allergies Allergies Allergy/AdvReac Type Severity Reaction Status Date / Time latex Allergy Unknown Verified 12/02/24 11:28 morphine Allergy Hives Verified 12/02/24 11:28 Assessment & Plan Assessment & Plan (1) MDD (major depressive disorder), recurrent episode, moderate: Status: Acute Code(s): F33.1 - Major depressive disorder, recurrent, moderate (2) Alcohol use disorder, moderate, dependence: Status: Acute Code(s): F10.20 - Alcohol dependence, uncomplicated (3) Homeless single person: Status: Acute Code(s): Z59.00 - Homelessness unspecified (4) Cannabis use disorder: Status: Acute Code(s): F12.90 - Cannabis use, unspecified, uncomplicated Plan increase zoloft 25 mg daily to 50 mg daily for depression/anxiety. change VPA 500 BID to VPA ER 1000 mg QHS. refer for rehab. addiction consult. 03/08 continue current medication, plan to titrate sertraline, adjust dose of depakote to 1250mg po qhs for better seizure and mood control. discussed MAT for alcohol use, considering naltrexon. Reason for continued inpatient stay Substantial Risk for: harm to self and inability to function Time Spent With Patient Time: Total time managing care of this patient today ____ minutes.
[2025-03-08 18:34] LABS: Ammonia 49 umol/L (13-55)
[2025-03-08 18:41] LABS: Valproate 49.2 mcg/mL (50.0-100.0)
[2025-03-08 18:46] LABS: Alanine Aminotransferase 17 U/L (0-31); Albumin Level 4.6 g/dL (3.5-5.0); Alkaline Phosphatase 73 U/L (39-117); Anion Gap 18 (12-20); Aspartate Amino Transferase 25 U/L (5-31); Bilirubin Total 0.4 mg/dL (0.0-1.0); Blood Urea Nitrogen 7 mg/dL (9-16); Calcium 9.9 mg/dL (8.4-10.2); Carbon Dioxide 30 mmol/L (22-29); Chloride 93 mmol/L (96-108); Creatinine Clr Calc Pharmacy 101.9; Estimated Glomerular Filt Rate > 60; Glucose Random 102 mg/dL (60-115); Potassium 3.5 mmol/L (3.3-5.1); Sodium 137 mmol/L (135-145); Total Protein 8.4 g/dL (6.5-8.0)
[2025-03-08 20:00] VITALS: BP 143/84; PULSE 90; RESP 16; TEMP 36.9; O2SAT 99
[2025-03-08] MEDS: Divalproex Sodium ER 500 MG TAB.ER.24H 1000 MG PO (21:44)
[2025-03-09] MEDS: traZODone HCL 50 MG TABLET PO (00:23)
[2025-03-09] MEDS: Sertraline HCL 50 MG TABLET PO (09:36)
[2025-03-09] MEDS: Acetaminophen 325 MG TABLET 650 MG PO ×2 (10:06→21:39)
[2025-03-09 11:45] VITALS: BP 138/74; PULSE 102; RESP 18; TEMP 36.8; O2SAT 98
[2025-03-09] MEDS: Naltrexone HCl 50 MG TABLET PO (13:54)
[2025-03-09 19:55] VITALS: BP 143/64; PULSE 87; RESP 16; TEMP 36.4; O2SAT 99
[2025-03-09] MEDS: Divalproex Sodium ER 250 MG TAB.ER.24H 1250 MG PO (20:51)
[2025-03-09] MEDS: Lidocaine 4 % Patch ADH..PATCH 1 PATCH TRANSDERMA (21:40)
--- NOTE | 2025-03-09 22:29 | P.PNPSI_ITS ---
Subjective Subjective Date of Service: 03/09/25 Reason For Visit: SI Subjective Notes: Conditional Voluntary Interim History: Pt slept 6 hrs, difficulty sleeping due to roommate. She continues to endorse depressed mood, more future oriented and thinking about her family. Also reports motivation to continue tx for alcohol use disorder. We discussed starting naltrexon which she agreed to do today. will also titrate sertraline for depression. Review of Systems Review of Systems Negative except for that which is stated in the HPI. Mental Status Exam Mental Status Exam Narrative: Appearance: wearing hospital gown, fair hygiene, in NAD Behavior: cooperative Psychomotor: no tremors, no agitation or retardation noted Speech: clear, normal rate/rhythm/volume, spontaneous TP: linear TC: worried about housing, drinking Mood: a little down Affect: congruent, non-labile SI: denies HI: denies VH/AH: none Delusions: none Insight/judgment: fair Memory/cog: alert, oriented x 3. grossly intact to conversational testing. Diagnostics Vital Signs (24Hr): Vital Signs - 24 hr 03/09/25 11:45 03/09/25 19:55 Temperature 98.3 F 97.6 F Pulse Rate 102 H 87 Respiratory Rate 18 16 Blood Pressure 138/74 143/64 H Pulse Oximetry 98 99 Oxygen Delivery Method Room Air Room Air BMI result Body Mass Index 29.6 Labs 03/07/25 08:17 03/08/25 18:18 Labs: Laboratory Results - last 48 hr 03/08/25 18:18 Sodium 137 Potassium 3.5 Chloride 93 L Carbon Dioxide 30 H Anion Gap 18 BUN 7 L Creatinine 0.77 Estim Creat Clear Calc 101.9 Estimated GFR > 60 Random Glucose 102 Calcium 9.9 Total Bilirubin 0.4 AST 25 ALT 17 Alkaline Phosphatase 73 Ammonia 49 Total Protein 8.4 H Albumin 4.6 Valproic Acid 49.2 L Medications Medications Current Medications Acetaminophen (Acetaminophen 325 Mg Tablet) 650 mg PO Q6H PRN PRN Reason: Headache/Pain, Scale 1-10 Last Admin: 03/09/25 21:39 Dose: 650 mg Al Hydroxide/Mg Hydroxide (Magnesium Hydrox/Alum Hydrox 30 Ml Oral.Susp) 30 ml PO Q6H PRN PRN Reason: Heartburn/Nausea Clonidine HCl (Clonidine Hcl 0.1 Mg Tablet) 0.1 mg PO BID PRN; Protocol PRN Reason: Anxiety Divalproex Sodium (Divalproex Sodium Er 250 Mg Tab.Er.24h) 1,250 mg PO BEDTIME [facility] Last Admin: 03/09/25 20:51 Dose: 1,250 mg Hydroxyzine HCl (Hydroxyzine Hcl 25 Mg Tablet) 25 mg PO Q6H PRN PRN Reason: mild anxiety Magnesium Hydroxide (Milk Of Magnesia 30 Ml Oral.Susp) 30 ml PO DAILY PRN PRN Reason: Constipation Naltrexone HCl (Naltrexone Hcl 50 Mg Tablet) 50 mg PO DAILY [facility] Last Admin: 03/09/25 13:54 Dose: 50 mg Nicotine Polacrilex (Nicotine Polacrilex 2 Mg Gum) 4 mg BUCCAL Q2H PRN PRN Reason: Nicotine Cravings Sertraline HCl (Sertraline Hcl 50 Mg Tablet) 50 mg PO DAILY [facility] Last Admin: 03/09/25 09:36 Dose: 50 mg Trazodone HCl (Trazodone Hcl 50 Mg Tablet) 50 mg PO BEDTIME MRX1 PRN PRN Reason: Insomnia Last Admin: 03/09/25 00:23 Dose: 50 mg Allergies Allergies Allergy/AdvReac Type Severity Reaction Status Date / Time latex Allergy Unknown Verified 12/02/24 11:28 morphine Allergy Hives Verified 12/02/24 11:28 Assessment & Plan Assessment & Plan (1) MDD (major depressive disorder), recurrent episode, moderate: Status: Acute Code(s): F33.1 - Major depressive disorder, recurrent, moderate (2) Alcohol use disorder, moderate, dependence: Status: Acute Code(s): F10.20 - Alcohol dependence, uncomplicated (3) Homeless single person: Status: Acute Code(s): Z59.00 - Homelessness unspecified (4) Cannabis use disorder: Status: Acute Code(s): F12.90 - Cannabis use, unspecified, uncomplicated Plan increase zoloft 25 mg daily to 50 mg daily for depression/anxiety. change VPA 500 BID to VPA ER 1000 mg QHS. refer for rehab. addiction consult. 03/08 increase depakote to 1250mg po qhs. depakote level 49. ammonia wnl. 03/09 start naltrexon 50mg po daily, plan to titrate sertraline as well. Reason for continued inpatient stay Substantial Risk for: harm to self and inability to function Time Spent With Patient Time: Total time managing care of this patient today ____ minutes.
--- NOTE | 2025-03-10 07:34 | PC.NURSE ---
Unique had a verbal outburst early this morning regarding use of the staff bathroom. De-escalation techniques were attempted with pt, patient became more agitated/loud, threatening to wake up this entire fucking unit because you guys are about to let me fucking piss myself. I swear if you guys let me piss myself. You will not be calming me down. You all are a bunch of fucking assholes and I want to speak to whoever is in charge. I'm not using a fucking dirty bathroom with these dirty bitches. I don't give a fuck it's a behavioral health unit, exactly, so just open the fucking bathroom. I don't care if he 'cleaned' it. It's disgusting. Nursing hydrochloric area supervisor contacted, arrived on unit, Charge nurse provided a brief report of the situation, in pt view. Pt became upset about this and stated, How the fuck are you going to get someone down here to talk to me but not let me fucking talk to them. Pt was informed, communication was needed between charge nurse and nursing hydrochloric area supervisor to understand how to help. RN in charge contacted security, nursing hydrochloric area supervisor (Naty Valentine), and flight operation coordinator provider (Marilin Landaverde).
[2025-03-10] MEDS: Sertraline HCL 50 MG TABLET PO ×2 (10:30→10:32)
[2025-03-10] MEDS: Naltrexone HCl 50 MG TABLET PO ×2 (10:30→10:32)
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
[2025-03-10 22:20] VITALS: RESP 16
[2025-03-11 07:45] VITALS: BP 125/71; PULSE 92; RESP 16; TEMP 36.4; O2SAT 98
--- NOTE | 2025-03-11 09:44 | HO.PSYCHPN ---
Subjective Subjective Date of Service: 03/11/25 Reason For Visit: SI Subjective Notes: Conditional Voluntary Interim History: Active on unit. Social with select peers. Labile. Observed yelling at staff d/t inconsistency in what I'm allowed to do ; patient is focused on obtaining placement at [facility]. Pt reports if she is unable to go to program, she [place] going [place]. per nursing, slept 7 hours. denies SI/HI/VH/AH. Medication Compliance: Yes Side effects from medications: No Mental Status Exam Mental Status Exam Narrative: Pt is alert and oriented; behavior is cooperative, yelling at times; dressed in casual attire; mood is described as fine ; eye contact appropriate; Speech is normal rate, volume and not pressured; thought process is organized; Thought content is on discharge; denies SI/HI/VH/AH. Diagnostics Vital Signs (24Hr): Vital Signs - 24 hr 03/10/25 22:20 03/11/25 07:45 Temperature 97.5 F Pulse Rate 92 Respiratory Rate 16 16 Blood Pressure 125/71 Pulse Oximetry 98 Oxygen Delivery Method Room Air BMI result Body Mass Index 29.6 Labs 03/07/25 08:17 03/08/25 18:18 Medications Medications Current Medications Acetaminophen (Acetaminophen 325 Mg Tablet) 650 mg PO Q6H PRN PRN Reason: Headache/Pain, Scale 1-10 Last Admin: 03/09/25 21:39 Dose: 650 mg Al Hydroxide/Mg Hydroxide (Magnesium Hydrox/Alum Hydrox 30 Ml Oral.Susp) 30 ml PO Q6H PRN PRN Reason: Heartburn/Nausea Clonidine HCl (Clonidine Hcl 0.1 Mg Tablet) 0.1 mg PO BID PRN; Protocol PRN Reason: Anxiety Divalproex Sodium (Divalproex Sodium Er 250 Mg Tab.Er.24h) 1,250 mg PO BEDTIME [facility] Last Admin: 03/10/25 22:20 Dose: Not Given Hydroxyzine HCl (Hydroxyzine Hcl 25 Mg Tablet) 25 mg PO Q6H PRN PRN Reason: mild anxiety Magnesium Hydroxide (Milk Of Magnesia 30 Ml Oral.Susp) 30 ml PO DAILY PRN PRN Reason: Constipation Naltrexone HCl (Naltrexone Hcl 50 Mg Tablet) 50 mg PO DAILY [facility] Last Admin: 03/10/25 10:32 Dose: 50 mg Nicotine Polacrilex (Nicotine Polacrilex 2 Mg Gum) 4 mg BUCCAL Q2H PRN PRN Reason: Nicotine Cravings Sertraline HCl (Sertraline Hcl 50 Mg Tablet) 50 mg PO DAILY [facility] Last Admin: 03/10/25 10:32 Dose: 50 mg Trazodone HCl (Trazodone Hcl 50 Mg Tablet) 50 mg PO BEDTIME MRX1 PRN PRN Reason: Insomnia Last Admin: 03/09/25 00:23 Dose: 50 mg Allergies Allergies Allergy/AdvReac Type Severity Reaction Status Date / Time latex Allergy Unknown Verified 12/02/24 11:28 morphine Allergy Hives Verified 12/02/24 11:28 Assessment & Plan Assessment & Plan (1) MDD (major depressive disorder), recurrent episode, moderate: Status: Acute Code(s): F33.1 - Major depressive disorder, recurrent, moderate (2) Alcohol use disorder, moderate, dependence: Status: Acute Code(s): F10.20 - Alcohol dependence, uncomplicated (3) Homeless single person: Status: Acute Code(s): Z59.00 - Homelessness unspecified (4) Cannabis use disorder: Status: Acute Code(s): F12.90 - Cannabis use, unspecified, uncomplicated Plan increase zoloft 25 mg daily to 50 mg daily for depression/anxiety. change VPA 500 BID to VPA ER 1000 mg QHS. refer for rehab. addiction consult. 03/10 continue tx. plan to increase sertraline, continue naltrexon. 03/11: Active on unit. Social with select peers. Labile. Observed yelling at staff d/t inconsistency in what I'm allowed to do ; patient is focused on obtaining placement at [facility]. Pt reports if she is unable to go to program, she [place]. per nursing, slept 7 hours. denies SI/HI/VH/AH. Continue current tx plan Patient educated on: diagnosis, medication risk/benefits and therapeutic strategies Reason for continued inpatient stay Substantial Risk for: med/psych decompensation Time Spent With Patient Time: Total time managing care of this patient today _20___ minutes.
--- NOTE | 2025-03-11 13:19 | PC.NURSE ---
Attempted to wake up multiple times in the morning for medications, patient ignored nurse every time.
--- NOTE | 2025-03-11 15:28 | MHC.RECOVRN ---
AUDIT-C Brief Intervention Pt had positive screen for unhealthy alcohol use on admission, subsequently met with t/w to discuss alcohol use and recovery supports/options. This service writer advisor met with patient to discuss current alcohol use and concerns related to increased risk of alcohol related problems.? Pt reports drinking a lot my whole life Discussed how alcohol use has impacted health, including negative impact on mood. Pt resistant to talking about this Withdrawal History: Pt reports experiencing W/D when he stops drinking but never experienced seizures Treatment History: I have been in multiple programs but they take advantage of you Supports:? I have none Discussed risk reduction strategies including drinking below the recommended limit. Provided pt with written resources including information on inpatient and outpatient treatment, LALO, harm reduction, and recovery coaching. Pt plans to find a safe place to live then focus on recovery. Pt provided with t/w contact information if questions or concerns arise. Denies other questions or concerns at this time.
--- NOTE | 2025-03-11 16:00 | MHC.RECOVRN ---
AUDIT-C Brief Intervention Pt had positive screen for unhealthy alcohol use on admission, subsequently met with t/w to discuss alcohol use and recovery supports/options. This health technical writer met with patient to discuss current alcohol use and concerns related to increased risk of alcohol related problems.? Pt reports daily drinking, amount varies, over the last year since mother's passing. Discussed how alcohol use has impacted health, including negative impact on mental health and relationships Withdrawal History: seizure x 1 with last W/D. Pt reports she was in the hospital when it occurred. Treatment History: N/A Supports:?adult kids and cousin Discussed risk reduction strategies including drinking below the recommended limit. Provided pt with written resources including information on inpatient and outpatient treatment, LALO, harm reduction, and recovery coaching. Pt plans to review all resources provided and requests f/u visit tomorrow for decisions and assist with connection. Pt agreed to referral and referral faxed to [facility] Pt provided with t/w contact information if questions or concerns arise. Denies other questions or concerns at this time.?
[2025-03-11 20:00] VITALS: BP 136/67; PULSE 106; RESP 16; TEMP 36.4; O2SAT 96
[2025-03-11] MEDS: Divalproex Sodium ER 250 MG TAB.ER.24H 1250 MG PO (21:44)
[2025-03-11] MEDS: Acetaminophen 325 MG TABLET 650 MG PO (21:56)
[2025-03-11] MEDS: Lidocaine 4 % Patch ADH..PATCH 1 PATCH TRANSDERMA (22:09)
[2025-03-11] MEDS: hydrOXYzine HCL 25 MG TABLET PO (23:30)
[2025-03-11] MEDS: traZODone HCL 50 MG TABLET PO (23:30)
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
[2025-03-12 07:45] VITALS: BP 92/51; PULSE 69; RESP 16; TEMP 36.4; O2SAT 94
[2025-03-12] MEDS: Sertraline HCL 50 MG TABLET PO (09:19)
[2025-03-12] MEDS: Naltrexone HCl 50 MG TABLET PO (09:22)
--- NOTE | 2025-03-12 11:33 | MHC.RECOVRN ---
Met with pt to follow up regarding LALO. Pt had been started on naltrexone on 03/09, reports it is going well and denies side effects. Discussed follow up care, including the [facility]. Pt plans to determine where she is going after discharge and discuss follow up with social sciences instructor. Pt denies questions or concerns for t/w. Pt provided with t/w contact information, encouraged pt to reach out if needed.
--- NOTE | 2025-03-12 16:35 | HO.PSYCHPN ---
Subjective Subjective Date of Service: 03/12/25 Reason For Visit: SI Subjective Notes: Conditional Voluntary Interim History: Patient reports feeling alright today; focused on obtaining placement at [facility]. Discussed frustration with argument last night with peer. per nursing, slept 6 hours. plans on going to a half-way, if not accepted to [facility]. denies SI/HI/VH/AH. Plan to discharge tomorrow morning; pt aware. Medication Compliance: Yes Side effects from medications: No Attending Groups: No Mental Status Exam Mental Status Exam Narrative: Pt is alert and oriented; behavior is cooperative, calm; dressed in casual attire; mood is described as alright ; eye contact appropriate; Speech is normal rate, volume and not pressured; thought process is organized; Thought content is on discharge; denies SI/HI/VH/AH. Diagnostics Vital Signs (24Hr): Vital Signs - 24 hr 03/11/25 20:00 03/12/25 07:45 Temperature 97.5 F 97.5 F Pulse Rate 106 H 69 Respiratory Rate 16 16 Blood Pressure 136/67 92/51 L Pulse Oximetry 96 94 Oxygen Delivery Method Room Air Room Air BMI result Body Mass Index 29.6 Labs 03/07/25 08:17 03/08/25 18:18 Medications Medications Current Medications Acetaminophen (Acetaminophen 325 Mg Tablet) 650 mg PO Q6H PRN PRN Reason: Headache/Pain, Scale 1-10 Last Admin: 03/11/25 21:56 Dose: 650 mg Al Hydroxide/Mg Hydroxide (Magnesium Hydrox/Alum Hydrox 30 Ml Oral.Susp) 30 ml PO Q6H PRN PRN Reason: Heartburn/Nausea Clonidine HCl (Clonidine Hcl 0.1 Mg Tablet) 0.1 mg PO BID PRN; Protocol PRN Reason: Anxiety Divalproex Sodium (Divalproex Sodium Er 250 Mg Tab.Er.24h) 1,250 mg PO BEDTIME [facility] Last Admin: 03/11/25 21:44 Dose: 1,250 mg Hydroxyzine HCl (Hydroxyzine Hcl 25 Mg Tablet) 25 mg PO Q6H PRN PRN Reason: mild anxiety Last Admin: 03/11/25 23:30 Dose: 25 mg Lidocaine (Lidocaine 4 % Patch Adh..Patch) 1 patch TRANSDERMA DAILY PRN; Protocol PRN Reason: Pain, Mild 1-3,fever,headache Last Admin: 03/11/25 22:09 Dose: 1 patch Magnesium Hydroxide (Milk Of Magnesia 30 Ml Oral.Susp) 30 ml PO DAILY PRN PRN Reason: Constipation Naltrexone HCl (Naltrexone Hcl 50 Mg Tablet) 50 mg PO DAILY [facility] Last Admin: 03/12/25 09:22 Dose: 50 mg Nicotine Polacrilex (Nicotine Polacrilex 2 Mg Gum) 4 mg BUCCAL Q2H PRN PRN Reason: Nicotine Cravings Sertraline HCl (Sertraline Hcl 50 Mg Tablet) 50 mg PO DAILY [facility] Last Admin: 03/12/25 09:19 Dose: 50 mg Trazodone HCl (Trazodone Hcl 50 Mg Tablet) 50 mg PO BEDTIME MRX1 PRN PRN Reason: Insomnia Last Admin: 03/11/25 23:30 Dose: 50 mg Allergies Allergies Allergy/AdvReac Type Severity Reaction Status Date / Time latex Allergy Unknown Verified 12/02/24 11:28 morphine Allergy Hives Verified 12/02/24 11:28 Assessment & Plan Assessment & Plan (1) MDD (major depressive disorder), recurrent episode, moderate: Status: Acute Code(s): F33.1 - Major depressive disorder, recurrent, moderate (2) Alcohol use disorder, moderate, dependence: Status: Acute Code(s): F10.20 - Alcohol dependence, uncomplicated (3) Homeless single person: Status: Acute Code(s): Z59.00 - Homelessness unspecified (4) Cannabis use disorder: Status: Acute Code(s): F12.90 - Cannabis use, unspecified, uncomplicated Plan increase zoloft 25 mg daily to 50 mg daily for depression/anxiety. change VPA 500 BID to VPA ER 1000 mg QHS. refer for rehab. addiction consult. 03/10 continue tx. plan to increase sertraline, continue naltrexon. 03/11: Active on unit. Social with select peers. Labile. Observed yelling at staff d/t inconsistency in what I'm allowed to do ; patient is focused on obtaining placement at [facility]. Pt reports if she is unable to go to program, she plans on going to a half-way. per nursing, slept 7 hours. denies SI/HI/VH/AH. Continue current tx plan 03/12: Patient reports feeling alright today; focused on obtaining placement at [facility]. Discussed frustration with argument last night with peer. per nursing, slept 6 hours. plans on going to a half-way, if not accepted to [facility]. denies SI/HI/VH/AH. Plan to discharge tomorrow morning; pt aware. Patient educated on: diagnosis, medication risk/benefits and therapeutic strategies Reason for continued inpatient stay Substantial Risk for: stable for discharge Time Spent With Patient Time: Total time managing care of this patient today _20___ minutes.
[2025-03-12 20:00] VITALS: BP 112/55; PULSE 76; RESP 16; TEMP 36.9; O2SAT 99
[2025-03-12] MEDS: Acetaminophen 325 MG TABLET 650 MG PO (22:01)
[2025-03-12] MEDS: Divalproex Sodium ER 250 MG TAB.ER.24H 1250 MG PO (22:01)
[2025-03-12] MEDS: hydrOXYzine HCL 25 MG TABLET PO (22:03)
[2025-03-12] MEDS: traZODone HCL 50 MG TABLET PO (22:03)
[2025-03-13 07:35] VITALS: BP 91/44; PULSE 77; RESP 14; TEMP 36.3; O2SAT 96
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
[2025-03-13] MEDS: Naltrexone HCl 50 MG TABLET PO (10:12)
[2025-03-13] MEDS: Sertraline HCL 50 MG TABLET PO (10:12)
== END 2025-03-13 11:00 | disposition home or self-care (01) | DRG 751 ==
PROVIDERS: Social Worker; Admitting Provider Psychiatry & Neurology Psychiatry; Visit Provider Psychiatry & Neurology Psychiatry
DX: F33.1 Major depressive disorder, recurrent, moderate (principal); R45.851 Suicidal ideations; F10.20 Alcohol dependence, uncomplicated; J45.20 Mild intermittent asthma, uncomplicated; F12.90 Cannabis use, unspecified, uncomplicated; Z59.02 Unsheltered homelessness; Z63.4 Disappearance and death of family member; Z79.899 Other long term (current) drug therapy
CPT/HCPCS: 36415; 80053; 80061; 80164; 82140; 82607; 82746; 83036; 84439; 84443; 85025

== ENCOUNTER → 2025-03-06 12:46 | Outpatient (BNV) | payer OTHER, SELFPAY | PROVIDERS: Admitting Provider Psychiatry & Neurology Psychiatry; Visit Provider Student in an Organized Health Care Education/Training Program | DX: Z02.2 Encounter for examination for admission to residential institution (principal) | CPT/HCPCS: 99429 ==

== ENCOUNTER → 2025-03-06 12:46 | Outpatient (BNV) | payer OTHER, SELFPAY | PROVIDERS: Admitting Provider Psychiatry & Neurology Psychiatry; Visit Provider Psychiatry & Neurology Psychiatry | DX: F33.1 Major depressive disorder, recurrent, moderate (principal); F10.20 Alcohol dependence, uncomplicated; F12.90 Cannabis use, unspecified, uncomplicated; Z59.00 Homelessness unspecified | CPT/HCPCS: 90792; 99231; 99232; 99238 ==